=== PATIENT | female | born 1960 | race Caucasian/White ===

== ENCOUNTER → 2017-01-21 | Outpatient (CLI) | payer OTHER ==
--- NOTE | 2017-01-22 11:35 | MM ---
Reason for exam: screening (asymptomatic). Last mammogram was performed 1 year and 7 months ago. History: Patient is postmenopausal and history of other cancer. Family history of breast cancer in mother at age 50, breast cancer in paternal grandmother at age 60, breast cancer in maternal grandfather, and premenopausal breast cancer in sister at age 40. Physical Findings: A clinical breast exam by your physician is recommended on an annual basis and results should be correlated with mammographic findings. MG Screening Mammo w CAD Bilateral CC and MLO view(s) were taken. CV view(s) were taken of the right breast. Prior study comparison: June 13, 2015, bilateral MG screening mammo w CAD. February 15, 2014, bilateral MG screening mammo w CAD. There are scattered fibroglandular densities. Finding: There are typically benign punctate calcifications. There is no discrete abnormality. No significant changes in finding since June 13, 2015 and February 15, 2014. ASSESSMENT: Benign, BI-RAD 2 RECOMMENDATION: Routine screening mammogram of both breasts in 1 year.
== END | disposition home or self-care (01) ==
LOC: RADMAMWWP 14:34
PROVIDERS: ATTEND Family Medicine
DX: Z12.31 Encounter for screening mammogram for malignant neoplasm of breast (principal)

== ENCOUNTER 2017-04-13 22:58 | Inpatient (IN) | payer OTHER ==
[2017-04-13] MEDS ORDERED: RX INFO: IV CONTRAST WAS GIVEN 1 EACH MISC MISCELLANE PRN (23:12)
[2017-04-13] MEDS ORDERED: SODIUM CHLORIDE 0.9% 1,000 ML IV STA ×2 (23:12)
--- NOTE | 2017-04-13 23:14 | ED ---
General Adult HPI - General Chief complaint: Neuro Symptoms/Deficit Stated complaint: left side weakness/keeps falling Time Seen by Provider: 04/13/17 23:12 Source: patient, family, RN notes reviewed, old records reviewed Mode of arrival: wheelchair Limitations: no limitations - History of Present Illness Initial comments: This is a 56-year-old female here for evaluation of neurological complaints. Patient a trip and fall yesterday. Backwards in the back of her complaining of headache. Patient does suffer from multiple medical comorbidities including her blood pressure cholesterol diabetes. No prior history of CVA. Patient has extreme left-sided hemiparalysis. Complaining of facial droop and headache. Patient is not on blood thinners currently. Patient's symptoms have been greater than 24 hours prior to arrival - Related Data Home Medications Medication Instructions Recorded Confirmed Aspirin EC [Ecotrin Low Dose] 81 mg PO DAILY 05/17/14 04/14/17 Desvenlafaxine Succinate [Pristiq 50 mg PO DAILY 05/17/14 04/14/17 ER] Lisinopril [Zestril] 20 mg PO DAILY 05/17/14 04/14/17 Meloxicam 15 mg PO DAILY PRN 05/17/14 04/14/17 Multivitamins, Thera [Multivitamin 1 tab PO DAILY 05/17/14 04/14/17 (formulary)] Dapagliflozin Propanediol [Farxiga] 5 mg PO DAILY 04/13/17 04/14/17 Furosemide [Lasix] 20 mg PO DAILY PRN 04/13/17 04/14/17 Insulin Aspart [NovoLOG] 10 unit SQ TID-W/MEALS 04/13/17 04/14/17 Insulin Glargine [Lantus] 100 unit SQ HS 04/13/17 04/14/17 Simvastatin [Zocor] 20 mg PO HS 04/13/17 04/14/17 lamoTRIgine [LaMICtal] 50 mg PO HS 04/13/17 04/14/17 metFORMIN HCL [Glucophage] 500 mg PO BID 04/13/17 04/14/17 traMADol HCl [Ultram] 50 mg PO Q6H PRN 04/13/17 04/14/17 Allergies Allergy/AdvReac Type Severity Reaction Status Date / Time No Known Allergies Allergy Verified 04/14/17 01:12 Review of Systems ROS Statement: Those systems with pertinent positive or pertinent negative responses have been documented in the HPI. ROS Other: All systems not noted in ROS Statement are negative. Past Medical History Past Medical History: Cancer, Chest Pain / Angina, Diabetes Mellitus (2 with diabetic retinopathy), Hypertension, Osteoarthritis (OA), Pneumonia, Renal Disease (Episode of acute kidney failure in the past not requiring dialysis.) Additional Past Medical History / Comment(s): uterine cancer stage II status post total hysterectomy with bilateral salpingo-oophorectomy. Treated at [facility]. No chemotherapy or radiation therapy. IBS, diverticulitis, BRONCHNITIS, history of abscess to the left lower extremity with MRSA in 2012. CELLULITIS RT LOWER LEG/FOOT. History of Any Multi-Drug Resistant Organisms: MRSA Date of last positivie culture/infection: 2011 MDRO Source:: left leg Past Surgical History: Cholecystectomy, Hysterectomy, Tonsillectomy Past Anesthesia/Blood Transfusion Reactions: No Reported Reaction Past Psychological History: Anxiety, Depression Smoking Status: Former smoker Past Alcohol Use History: None Reported Past Drug Use History: Marijuana - Past Family History Father Family Medical History: Congestive Heart Failure (CHF), Diabetes Mellitus, Dialysis, Hyperlipidemia, Hypertension, Renal Disease Additional Family Medical History / Comment(s): AT AGE 64- Mother Family Medical History: CVA/TIA, Diabetes Mellitus, Hyperlipidemia, Hypertension , Myocardial Infarction ([place]) Additional Family Medical History / Comment(s): MOM AT AGE 74. General Exam - General Exam Comments Initial Comments: NIH 6 for left-sided deficit with left-sided facial droop Limitations: no limitations General appearance: alert, in no apparent distress Head exam: Present: atraumatic, normocephalic, normal inspection Eye exam: Present: normal appearance, PERRL, EOMI. Absent: scleral icterus, conjunctival injection, periorbital swelling ENT exam: Present: normal exam, mucous membranes moist Neck exam: Present: normal inspection. Absent: tenderness, meningismus, lymphadenopathy Respiratory exam: Present: normal lung sounds bilaterally. Absent: respiratory distress, wheezes, rales, rhonchi, stridor Cardiovascular Exam: Present: regular rate, normal rhythm, normal heart sounds. Absent: systolic murmur, diastolic murmur, rubs, gallop, clicks GI/Abdominal exam: Present: soft, normal bowel sounds. Absent: distended, tenderness, guarding, rebound, rigid Extremities exam: Present: normal inspection, full ROM, normal capillary refill. Absent: tenderness, pedal edema, joint swelling, calf tenderness Back exam: Present: normal inspection Neurological exam: Present: alert, oriented X3, CN II-XII intact Psychiatric exam: Present: normal affect, normal mood Skin exam: Present: warm, dry, intact, normal color. Absent: rash Course Vital Signs 04/13/17 04/13/17 04/14/17 23:00 23:15 00:20 Temperature 98.3 F Pulse Rate 80 82 72 Respiratory 18 18 18 Rate Blood Pressure 140/84 159/67 151/70 O2 Sat by Pulse 98 94 L 99 Oximetry 04/14/17 00:42 Temperature Pulse Rate 77 Respiratory 18 Rate Blood Pressure 145/68 O2 Sat by Pulse 97 Oximetry EKG Findings - EKG Comments: EKG Findings:: EKG shows normal sinus rhythm rate of 76, SC 182, QRS 70, QTC 429 Medical Decision Making - Medical Decision Making 56 he had with positive CVA, left-sided weakness and deficit. And I today with no improvement, patient out of window for TPA, will admit for neurology evaluation and consultation - Lab Data Result diagrams: 04/13/17 23:15 04/13/17 23:15 Lab Results 04/13/17 04/13/17 04/13/17 Range/Units 23:14 23:15 23:15 WBC 10.6 (3.8-10.6) k/uL RBC 5.13 (3.80-5.40) m/uL Hgb 16.3 H (11.4-16.0) gm/dL Hct 46.9 H (34.0-46.0) % MCV 91.4 (80.0-100.0) fL MCH 31.8 (25.0-35.0) pg MCHC 34.8 (31.0-37.0) g/dL RDW 14.0 (11.5-15.5) % Plt Count 310 (150-450) k/uL Neutrophils % 80 % Lymphocytes % 13 % Monocytes % 5 % Eosinophils % 1 % Basophils % 0 % Neutrophils # 8.5 H (1.3-7.7) k/uL Lymphocytes # 1.4 (1.0-4.8) k/uL Monocytes # 0.5 (0-1.0) k/uL Eosinophils # 0.1 (0-0.7) k/uL Basophils # 0.0 (0-0.2) k/uL PT (9.0-12.0) sec INR (<1.2) APTT (22.0-30.0) sec Sodium (137-145) mmol/L Potassium (3.5-5.1) mmol/L Chloride (98-107) mmol/L Carbon Dioxide (22-30) mmol/L Anion Gap mmol/L BUN (7-17) mg/dL Creatinine (0.52-1.04) mg/dL Est GFR (MDRD) Af Amer (>60 ml/min/1.73 sqM) Est GFR (MDRD) Non-Af (>60 ml/min/1.73 sqM) Glucose (74-99) mg/dL POC Glucose (mg/dL) 238 H (75-99) mg/dL POC Glu Analyst Programmer ID [place] Calcium (8.4-10.2) mg/dL Total Bilirubin (0.2-1.3) mg/dL AST (14-36) U/L ALT (9-52) U/L Alkaline Phosphatase (38-126) U/L Total Creatine Kinase 449 H (30-135) U/L CK-MB (CK-2) 5.2 H* (0.0-2.4) ng/mL CK-MB (CK-2) Rel Index 1.2 Troponin I <0.012 (0.000-0.034) ng/mL Total Protein (6.3-8.2) g/dL Albumin (3.5-5.0) g/dL Triglycerides (<150) mg/dL Cholesterol (<200) mg/dL LDL Cholesterol, Calc (0-99) mg/dL HDL Cholesterol (40-60) mg/dL 04/13/17 04/13/17 04/13/17 Range/Units 23:15 23:15 23:15 WBC (3.8-10.6) k/uL RBC (3.80-5.40) m/uL Hgb (11.4-16.0) gm/dL Hct (34.0-46.0) % MCV (80.0-100.0) fL MCH (25.0-35.0) pg MCHC (31.0-37.0) g/dL RDW (11.5-15.5) % Plt Count (150-450) k/uL Neutrophils % % Lymphocytes % % Monocytes % % Eosinophils % % Basophils % % Neutrophils # (1.3-7.7) k/uL Lymphocytes # (1.0-4.8) k/uL Monocytes # (0-1.0) k/uL Eosinophils # (0-0.7) k/uL Basophils # (0-0.2) k/uL PT 10.9 (9.0-12.0) sec INR 1.1 (<1.2) APTT 21.4 L (22.0-30.0) sec Sodium 141 (137-145) mmol/L Potassium 4.4 (3.5-5.1) mmol/L Chloride 106 (98-107) mmol/L Carbon Dioxide 21 L (22-30) mmol/L Anion Gap 14 mmol/L BUN 16 (7-17) mg/dL Creatinine 0.70 (0.52-1.04) mg/dL Est GFR (MDRD) Af Amer >60 (>60 ml/min/1.73 sqM) Est GFR (MDRD) Non-Af >60 (>60 ml/min/1.73 sqM) Glucose 243 H (74-99) mg/dL POC Glucose (mg/dL) (75-99) mg/dL POC Glu Analyst Programmer ID Calcium 9.7 (8.4-10.2) mg/dL Total Bilirubin 1.0 (0.2-1.3) mg/dL AST 50 H (14-36) U/L ALT 68 H (9-52) U/L Alkaline Phosphatase 70 (38-126) U/L Total Creatine Kinase (30-135) U/L CK-MB (CK-2) (0.0-2.4) ng/mL CK-MB (CK-2) Rel Index Troponin I (0.000-0.034) ng/mL Total Protein 7.3 (6.3-8.2) g/dL Albumin 4.4 (3.5-5.0) g/dL Triglycerides 203 H (<150) mg/dL Cholesterol 165 (<200) mg/dL LDL Cholesterol, Calc 91 (0-99) mg/dL HDL Cholesterol 33 L (40-60) mg/dL - Radiology Data Radiology results: report reviewed (CT brain and CT angiogram had shows right- sided MCA infarct), image reviewed Critical Care Time Critical Care Time: Yes Total Critical Care Time: 31 Disposition Clinical Impression: Cerebrovascular accident, Acute right arterial ischemic stroke, MCA (middle cerebral artery) Disposition: ADMITTED IP TO THIS HOSP Condition: Serious
[2017-04-13 23:21] LABS: Basophils % (A) 0 %; CH 32.4; CHCM 35.6; Eosinophils # (A) 0.1 k/uL (0-0.7); Eosinophils % (A) 1 %; HCT 46.9 % (34.0-46.0); HDW 2.72; HGB 16.3 gm/dL (11.4-16.0); Luc % (Auto) 1; Lymphocytes # (A) 1.4 k/uL (1.0-4.8); Lymphocytes % (A) 13 %; MCH 31.8 pg (25.0-35.0); MCHC 34.8 g/dL (31.0-37.0); MCV 91.4 fL (80.0-100.0); Monocytes # (A) 0.5 k/uL (0-1.0); Monocytes % (A) 5 %; Neutrophils # (A) 8.5 k/uL (1.3-7.7); Neutrophils % (A) 80 %; RBC 5.13 m/uL (3.80-5.40); WBC 10.6 k/uL (3.8-10.6); WBC (Perox) 10.47
[2017-04-13 23:25] LABS: Glucose,Whole Blood 238 mg/dL (75-99)
[2017-04-13 23:31] LABS: ALT 68 U/L (9-52); AST 50 U/L (14-36); Alkaline Phosphatase 70 U/L (38-126); Anion Gap 14 mmol/L; Blood Urea Nitrogen 16 mg/dL (7-17); Calcium 9.7 mg/dL (8.4-10.2); Carbon Dioxide 21 mmol/L (22-30); Chloride 106 mmol/L (98-107); Glucose 243 mg/dL (74-99); INR 1.1 (<1.2); Non-African American GFR(MDRD) >60 (>60 ml/min/1.73 sqM); Potassium 4.4 mmol/L (3.5-5.1); Prothrombin Time 10.9 sec (9.0-12.0); Sodium 141 mmol/L (137-145); Total Protein 7.3 g/dL (6.3-8.2)
[2017-04-13 23:45] LABS: Partial Thromboplastin Time 21.4 sec (22.0-30.0)
[2017-04-13 23:46] LABS: Creatine Kinase 449 U/L (30-135)
--- NOTE | 2017-04-13 23:54 | CT ---
INDICATION: Neuro deficits, stroke code TECHNIQUE: CT acquisition is performed through the brain. Sagittal and coronal reformatted images provided. No IV contrast is administered. DOSE INFORMATION: CTDIvol 57.40 mGy; DLP 1113.30 mGy-cm. One or more of the following dose reduction techniques were used: automated exposure control, adjustment of the mA and/or kV according to patient size, use of iterative reconstruction technique. COMPARISON: None. FINDINGS: There is a zone of parenchymal hypoattenuation and loss of gonsalez-white matter differentiation in the right MCA territory measuring 3. 5 x 5.8 x 3.1 cm and involving the insula and frontal and temporal operculum. There is no evidence of hemorrhagic transformation. There is no acute intracranial hemorrhage or midline shift. Ventricles are normal in size and configuration and the basal cisterns are patent. There is no skull fracture. Visualized paranasal sinuses and mastoid air cells are clear. IMPRESSION: 1. Acute right MCA territory infarct involving the insula and frontal and temporal operculum, approximate one third of the right MCA territory. No evidence of acute intracranial hemorrhage. Critical Value Communications 04/13/17 23:55 Call Doctor Regarding Stroke, called Dr. Rosas on 04/13 23:54 (-04:00)
[2017-04-13] MEDS ORDERED: ASPIRIN 325 MG TAB PO STA (23:55)
[2017-04-13 23:59] LABS: Troponin I <0.012 ng/mL (0.000-0.034)
--- NOTE | 2017-04-14 00:10 | CT ---
CTA HEAD CTA NECK INDICATION: Stroke TECHNIQUE: CTA is performed through the head and neck per institutional protocol following the intravenous administration of 65 mL Omnipaque 350. Multiplanar reformatted images including coronal and sagittal MIPS reconstructed images are provided. DOSE INFORMATION: CTDIvol 68.1 mGy; DLP 781.40-cm. One or more of the following dose reduction techniques were used: automated exposure control, adjustment of the mA and/or kV according to patient size, use of iterative reconstruction technique. COMPARISON: CT head without contrast, 04/13/27. FINDINGS: Study is limited by poor contrast bolus timing with image acquisition performed to early. CTA head: There is cut off of the right MCA at the M1-M2 junction. Area of acute right MCA territory infarction involving the insula and frontal and temporal operculum is again demonstrated. The left MCA is patent. The bilateral intracranial internal carotid arteries and bilateral A1 segments are patent. The bilateral intracranial vertebral arteries, basilar artery, and bilateral P1 segments are patent. Multifocal areas of mild stenosis likely are related to intracranial atherosclerosis. No evidence of aneurysm or vascular malformation. CTA neck: Aortic arch demonstrates normal branch anatomy. Bilateral common carotid arteries are patent. There is atherosclerosis at the carotid bifurcations bilaterally. The proximal right ICA demonstrates moderate stenosis at its origin. The proximal left ICA demonstrates mild stenosis at its origin. The bilateral cervical vertebral arteries are patent and normal in caliber. The lung apices are clear. Soft tissue structures of the neck are unremarkable. There are no acute osseous findings. CAROTID STENOSIS REFERENCE USING NASCET CRITERIA: % ICA stenosis = (1 - narrowest ICA diameter/diameter of distal cervical ICA) x 100. Mild - <50% stenosis. Moderate - 50-69% stenosis. Severe - 70-94% stenosis. Near occlusion - 95-99% stenosis. Occluded - 100% stenosis. IMPRESSION: 1. Head: Cut off of the right MCA at the M1-M2 junction with nonhemorrhagic acute infarct involving the insula and frontal and temporal operculum. 2. Neck: Atherosclerosis at the carotid bifurcations bilaterally causing moderate narrowing of the proximal right ICA and mild narrowing of the proximal left ICA.
[2017-04-14 00:22] LABS: Creatine Kinase MB 5.2 ng/mL (0.0-2.4)
--- NOTE | 2017-04-14 00:24 | XR ---
INDICATION: Altered mental status COMPARISON: None. FINDINGS: Frontal and lateral views of the chest are obtained. The cardiomediastinal silhouette is within normal limits. Lungs are clear. No pleural effusion or pneumothorax. No acute osseous findings. IMPRESSION: No radiographic evidence of acute cardiopulmonary disease.
[2017-04-14] MEDS: SODIUM CHLORIDE 0.9% 1,000 ML IV SCH ×3 (01:22→16:18)
[2017-04-14] MEDS: traMADol 50 MG TAB PO PRN ×2 (03:55→16:18)
[2017-04-14 04:57] LABS: Cholesterol 165 mg/dL (<200); HDL Cholesterol 33 mg/dL (40-60); Triglycerides 203 mg/dL (<150)
[2017-04-14] MEDS ORDERED: ASPIRIN 325 MG TAB PO SCH (09:00)
--- NOTE | 2017-04-14 09:04 | US ---
EXAMINATION TYPE: US carotid duplex BILAT DATE OF EXAM: 04/14/2017 COMPARISON: NONE CLINICAL HISTORY: 56-year-old female Stenosis. Frequent falls, headache, left sided weakness. TECHNIQUE: Carotid duplex ultrasound examination. Indirect Doppler criteria was utilized. FINDINGS: There is moderate atherosclerotic change of the right bifurcation and mild on the left. EXAM MEASUREMENTS: RIGHT: Peak Systolic Velocity (PSV) cm/sec ----- Right CCA: 77.9 ----- Right ICA: 74.6 ----- Right ECA: 132.3 ICA/CCA ratio: 1.0 RIGHT: End Diastole cm/sec ----- Right CCA: 9.8 ----- Right ICA: 17.5 ----- Right ECA: 6.3 LEFT: Peak Systolic Velocity (PSV) cm/sec ----- Left CCA: 72.7 ----- Left ICA: 98.9 ----- Left ECA: 100.9 ICA/CCA ratio: 1.4 LEFT: End Diastole cm/sec ----- Left CCA: 11.9 ----- Left ICA: 16.5 ----- Left ECA: 10.2 VERTEBRALS (direction of flow): Right Vertebral: Antegrade Left Vertebral: Antegrade IMPRESSION: No hemodynamically significant stenosis appreciated in either internal carotid artery. Criteria for Assigning % of Stenosis / Diameter reduction (Estimation based on the indirect measurements of the internal carotid artery velocities (ICA PSV). 1. Normal (no stenosis)=ICA PSV < 125 cm/s: ratio < 2.0: ICA EDV<40 cm/s. 2. Less than 50% stenosis=ICA PSV < 125 cm/s: ratio < 2.0: ICA EDV<40 cm/s. 3. 50 to 69% stenosis=ICA PSV of 125 to 230 cm/s: ration 2.0 ? 4.0: ICA EDV 40-100 cm/s. 4. Greater than 70% stenosis to near occlusion= ICA PSV > 230 cm/s: ratio > 4.0: ICA EDV > 100 cm/s. 5. Near occlusion= ICA PSV velocities may be low or undetectable: variable ratio and ICA EDV. 6. Total occlusion=unable to detect flow.
--- NOTE | 2017-04-14 10:30 | ECHOF ---
Referral Reason:Thrombus MEASUREMENTS -------- HEIGHT: 167.6 cm WEIGHT: 99.3 kg BP: 142/88 RVIDd: 3.0 cm (< 3.3) IVSd: 1.1 cm (0.6 - 1.1) LVIDd: 3.4 cm (3.9 - 5.3) LVPWd: 1.1 cm (0.6 - 1.1) IVSs: 1.4 cm LVIDs: 2.4 cm LVPWs: 1.7 cm LA Diam: 3.4 cm (2.7 - 3.8) LAESV Index (A-L): 29.36 ml/m Ao Diam: 3.4 cm (2.0 - 3.7) AV Cusp: 2.2 cm (1.5 - 2.6) MV EXCURSION: 14.642 mm (> 18.000) MV EF SLOPE: 96 mm/s (70 - 150) MV E Hima: 1.26 m/s MV DecT: 241 ms MV A Hima: 1.04 m/s MV E/A Ratio: 1.21 RAP: 5.00 mmHg RVSP: 26.20 mmHg FINDINGS -------- Sinus rhythm. This was a technically good study. The left ventricular size is normal. There is borderline concentric left ventricular hypertrophy. Overall left ventricular systolic function is normal with, an EF between 60 - 65 %. The right ventricle is normal in size and function. LA is midly dilated 29-33ml/m2. The right atrium is normal in size. The aortic valve is trileaflet and appears structurally normal. The mitral valve is normal. Trace tricuspid regurgitation present. Right ventricular systolic pressure is normal at < 35 mmHg. There is no pulmonic regurgitation present. The aortic root size is normal. IVC Not well visulized. There is no pericardial effusion. CONCLUSIONS -------- 1. Sinus rhythm. 2. The mitral valve is normal. 3. Trace tricuspid regurgitation present. 4. Right ventricular systolic pressure is normal at < 35 mmHg. 5. There is no pulmonic regurgitation present. 6. The aortic root size is normal. 7. IVC Not well visulized. 8. There is no pericardial effusion. 9. This was a technically good study. 10. The left ventricular size is normal. 11. There is borderline concentric left ventricular hypertrophy. 12. Overall left ventricular systolic function is normal with, an EF between 60 - 65 %. 13. The right ventricle is normal in size and function. 14. LA is midly dilated 29-33ml/m2. 15. The right atrium is normal in size. 16. The aortic valve is trileaflet and appears structurally normal. WHEAT WASHER: Sushma Spencer RDCS
[2017-04-14 12:38] LABS: Glucose,Whole Blood 232 mg/dL (75-99)
[2017-04-14] MEDS ORDERED: FUROSEMIDE 20 MG TAB PO PRN (13:12)
[2017-04-14] MEDS ORDERED: MELOXICAM 7.5 MG TAB PO PRN (13:12)
[2017-04-14] MEDS: INSULIN LISPRO (humaLOG) 300 UNIT/3 ML VIAL SQ SCH ×2 (13:35→17:50)
[2017-04-14 18:10] LABS: Glucose,Whole Blood 179 mg/dL (75-99)
[2017-04-14] MEDS ORDERED: ATORVASTATIN 80 MG TAB PO SCH (21:00)
[2017-04-14 21:27] LABS: Glucose,Whole Blood 147 mg/dL (75-99)
[2017-04-14] MEDS: metFORMIN 500 MG TAB PO SCH (21:28)
[2017-04-14] MEDS: lamoTRIgine 25 MG TAB PO SCH (21:42)
[2017-04-14] MEDS: INSULIN GLARGINE 100 UNIT/ML 10 ML VIAL SQ SCH (21:42)
[2017-04-14] MEDS: ATORVASTATIN 10 MG TAB PO SCH (21:42)
--- NOTE | 2017-04-14 22:29 | P.CNNES ---
History of Present Illness Consult date: 04/14/17 Reason for Consult: Patient being evaluated for acute right MCA stroke. History of Present Illness: This patient is a 56-year-old right-handed white female who was at home on Thursday of this past week and had 3 episodes of falling. She states that she was feeling very weak and apparently fell due to weakness in her legs. She had sustained 3 falls close to the bathroom. She was able to get some help and was able to get back into bed as this occurred late at night. The next day she was having again difficulty with falls. Her son returned home and found her very weak and unable to get out of bed. EMS was called and she was transported to the emergency room at [facility] for further evaluation. She was seen in the ER by Dr. Rosas. She underwent an NIH stroke scale which was noted to be 6.0. She was sent for a computed tomography scan of the brain which revealed evidence of an acute right MCA infarct involving the frontal temporal lobe. There was no evidence of acute intracranial hemorrhage. She was also sent for a CTA angiogram of the head and neck. This CTA result revealed a cutoff of the right MCA at the M1 and M2 junction with nonhemorrhagic acute infarction. The patient was admitted to hospital for a complete stroke evaluation. She underwent a carotid Doppler study today which revealed no hemodynamically significant stenosis in either internal carotid artery. The patient was noted in the ER as having severe left-sided hemiparesthesias. She had a facial droop and some slurring of her words. Since admission she has noted only slight improvement in the left hand strength. She denies any headache at this time. She has no visual changes. She does have history of diabetes mellitus for over 12 years. Her most recent hemoglobin A1c was 6.5. The patient had been taking one aspirin daily 81 mg for the last several years at home. She is also on Crestor for treatment of hyperlipidemia. The patient is now admitted and neurology has been consulted for further evaluation and recommendations. Review of Systems Constitutional: Denies chills, Denies fever Eyes: denies blurred vision, denies pain Ears, nose, mouth and throat: Denies headache, Denies sore throat Cardiovascular: Denies chest pain, Denies shortness of breath Respiratory: Denies cough Gastrointestinal: Denies abdominal pain, Denies diarrhea, Denies nausea, Denies vomiting Genitourinary: Denies dysuria, Denies hematuria Musculoskeletal: Denies myalgias Integumentary: Denies pruritus, Denies rash Neurological: Reports aphasia, Reports change in speech, Reports confusion, Reports lack of coordination, Reports motor disturbance, Reports paresthesias, Denies numbness, Denies weakness Psychiatric: Denies anxiety, Denies depression Endocrine: Denies fatigue, Denies weight change Past Medical History Past Medical History: Cancer, Chest Pain / Angina, Diabetes Mellitus, Hypertension, Osteoarthritis (OA), Pneumonia, Renal Disease Additional Past Medical History / Comment(s): uterine cancer stage II status post total hysterectomy with bilateral salpingo-oophorectomy. Treated at [facility]. No chemotherapy or radiation therapy. IBS, diverticulitis, BRONCHNITIS, history of abscess to the left lower extremity with MRSA in 2012. CELLULITIS RT LOWER LEG/FOOT. History of Any Multi-Drug Resistant Organisms: MRSA Date of last positivie culture/infection: 2011 MDRO Source:: left leg Past Surgical History: Cholecystectomy, Hysterectomy, Tonsillectomy Past Anesthesia/Blood Transfusion Reactions: No Reported Reaction Past Psychological History: Anxiety Smoking Status: Former smoker Past Alcohol Use History: None Reported Additional Past Alcohol Use History / Comment(s): STARTED SMOKING AT AGE 10, SMOKED 2PPD, QUIT 1996. OCC SMOKES MARIJUANA. NO ETOH. 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 She is currently not employed. She lives at home with her and son. They have 1 cat and 1 dog in the home. No recent travel. Past Drug Use History: Marijuana - Past Family History Father Family Medical History: Congestive Heart Failure (CHF), Diabetes Mellitus, Dialysis, Hyperlipidemia, Hypertension, Renal Disease Additional Family Medical History / Comment(s): AT AGE 64- Mother Family Medical History: CVA/TIA, Diabetes Mellitus, Hyperlipidemia, Hypertension , Myocardial Infarction ([place]) Additional Family Medical History / Comment(s): MOM AT AGE 74. Medications and Allergies Home Medications Medication Instructions Recorded Confirmed Type Aspirin EC [Ecotrin Low Dose] 81 mg PO DAILY 05/17/14 04/14/17 History Desvenlafaxine Succinate [Pristiq 50 mg PO DAILY 05/17/14 04/14/17 History ER] Lisinopril [Zestril] 20 mg PO DAILY 05/17/14 04/14/17 History Meloxicam 15 mg PO DAILY PRN 05/17/14 04/14/17 History Multivitamins, Thera [Multivitamin 1 tab PO DAILY 05/17/14 04/14/17 History (formulary)] Dapagliflozin Propanediol [Farxiga] 5 mg PO DAILY 04/13/17 04/14/17 History Furosemide [Lasix] 20 mg PO DAILY PRN 04/13/17 04/14/17 History Insulin Aspart [NovoLOG] 10 unit SQ TID-W/MEALS 04/13/17 04/14/17 History Insulin Glargine [Lantus] 100 unit SQ HS 04/13/17 04/14/17 History Simvastatin [Zocor] 20 mg PO HS 04/13/17 04/14/17 History lamoTRIgine [LaMICtal] 50 mg PO HS 04/13/17 04/14/17 History metFORMIN HCL [Glucophage] 500 mg PO BID 04/13/17 04/14/17 History traMADol HCl [Ultram] 50 mg PO Q6H PRN 04/13/17 04/14/17 History Allergies Allergy/AdvReac Type Severity Reaction Status Date / Time No Known Allergies Allergy Verified 04/14/17 01:12 Physical Examination - Vital Signs Vital Signs: Vital Signs Temp Pulse Pulse Resp BP BP Pulse Ox 04/14/17 16:00 98.2 F 64 18 148/67 94 L 04/14/17 12:00 98.1 F 73 18 155/66 94 L 04/14/17 08:00 96.3 F L 65 18 167/72 94 L 04/14/17 04:00 98.8 F 85 16 142/88 96 04/14/17 00:42 77 18 145/68 97 04/14/17 00:20 72 18 151/70 99 04/13/17 23:15 82 18 159/67 94 L 04/13/17 23:00 98.3 F 80 18 140/84 98 Intake and Output 04/14/17 04/14/17 04/14/17 06:59 14:59 22:59 Intake Total 150 574 237 Balance 150 574 237 Intake: IV 150 Sodium Chloride 0.9% 1, 150 000 ml @ 100 mls/hr IV . Q10H [facility] Rx#:[id number] Oral 574 237 Other: Voiding Method Toilet Toilet Toilet # Voids 1 Weight 99.7 kg - Constitutional General appearance: average body habitus, cooperative - EENT EENT: PERRL, mucous membranes moist - Respiratory Respiratory: lungs clear, normal breath sounds - Cardiovascular Cardiovascular: regular rate, normal S1, normal S2 Extremities: no peripheral edema bilaterally - Gastrointestinal Gastrointestinal: normoactive bowel sounds - Integumentary Integumentary: normal - Neurologic Cranial nerve examination: PERRL, EOMI, V1/V2/V3 grossly intact, tongue midline , intact gag reflex, intact corneal reflex, facial droop (Patient has a left upper motor neuron facial weakness.), normal palatal elevation Speech examination: intact Sensorimotor examination: intact Motor examination - right side: 4/5: biceps, triceps, wrist flexion, wrist extension, 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, hip flexors, knee extensors, dorsiflexion, toe extension (EHL) , plantarflexion Motor examination - left side: 2/5: biceps, triceps, wrist flexion, wrist extension, 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, hip flexors, knee extensors, dorsiflexion, toe extension (EHL) , plantarflexion Detailed sensory examination: intact Reflex and gait examination: intact Reflexes: 1+: ankle, bicep, knee, tricep - Musculoskeletal Musculoskeletal: no pain - Psychiatric Psychiatric: mood/affect appropriate, cooperative Results - Laboratory Findings CBC and BMP: 04/13/17 23:15 04/13/17 23:15 Abnormal Lab Findings: Abnormal Labs 04/13/17 04/13/17 04/13/17 23:14 23:15 23:15 Hgb 16.3 H Hct 46.9 H Neutrophils # 8.5 H APTT Carbon Dioxide Glucose POC Glucose (mg/dL) 238 H AST ALT Total Creatine Kinase 449 H CK-MB (CK-2) 5.2 H* Triglycerides HDL Cholesterol 04/13/17 04/13/17 04/13/17 23:15 23:15 23:15 Hgb Hct Neutrophils # APTT 21.4 L Carbon Dioxide 21 L Glucose 243 H POC Glucose (mg/dL) AST 50 H ALT 68 H Total Creatine Kinase CK-MB (CK-2) Triglycerides 203 H HDL Cholesterol 33 L 04/14/17 04/14/17 12:35 17:49 Hgb Hct Neutrophils # APTT Carbon Dioxide Glucose POC Glucose (mg/dL) 232 H 179 H AST ALT Total Creatine Kinase CK-MB (CK-2) Triglycerides HDL Cholesterol Assessment and Plan (1) Acute right arterial ischemic stroke, MCA (middle cerebral artery) Status: Acute Code(s): I63.511 - CEREB INFRC D/T UNSP OCCLS OR STENOS OF RIGHT MID CEREB ART (2) Hyperlipidemia Status: Acute Code(s): E78.5 - HYPERLIPIDEMIA, UNSPECIFIED (3) Diabetes mellitus Status: Acute Code(s): E11.9 - TYPE 2 DIABETES MELLITUS WITHOUT COMPLICATIONS (4) Hypertension Status: Acute Code(s): I10 - ESSENTIAL (PRIMARY) HYPERTENSION Plan: This patient is a 56-year-old female who was admitted to hospital with acute onset of left-sided weakness and slurred speech. She was seen in the ER yesterday by Dr. Rosas. Her NIH stroke scale was noted to be 6.0. She underwent a CT scan of the brain as well as a CTA angiogram. Results are as noted above. CAT scan of the brain reveals a acute right MCA stroke. CTA angiogram revealed cutoff of the right MCA at the M1 and M2 junction. The patient was admitted to hospital for a complete stroke evaluation. Her neurological examination reveals acute left-sided hemiparesis with left facial droop and mild expressive aphasia. This patient has suffered an acute right MCA stroke. We have recommended a complete stroke evaluation for the patient. We have recommended an MRI of the brain for further evaluation. She is to be maintained on aspirin daily for secondary stroke prevention pending her MRI results. Her overall prognosis at this time remains very guarded. We will continue close neurological follow-up of this patient during this admission. Time with Patient: Greater than 30
[2017-04-15] MEDS: SODIUM CHLORIDE 0.9% 1,000 ML IV SCH ×2 (06:04→16:54)
[2017-04-15 06:07] LABS: Glucose,Whole Blood 142 mg/dL (75-99)
[2017-04-15] MEDS: INSULIN LISPRO (humaLOG) 300 UNIT/3 ML VIAL SQ SCH ×3 (07:32→18:21)
[2017-04-15 07:33] LABS: Cholesterol 139 mg/dL (<200); HDL Cholesterol 27 mg/dL (40-60); Triglycerides 139 mg/dL (<150)
[2017-04-15] MEDS: ASPIRIN 81 MG CHEW PO SCH (08:19)
[2017-04-15] MEDS: LISINOPRIL 20 MG TAB PO SCH (08:19)
[2017-04-15] MEDS: MULTIVITAMINS, THERA 1 EACH TAB PO SCH (08:19)
[2017-04-15] MEDS: metFORMIN 500 MG TAB PO SCH ×2 (08:19→22:22)
[2017-04-15] MEDS: DESVENLAFAXINE SUCCINATE 50 MG TAB.ER.24H PO SCH (08:19)
[2017-04-15] MEDS: HEPARIN SODIUM,PORCINE 5,000 UNIT/ML 1 ML VIAL SQ SCH ×2 (08:19→20:39)
[2017-04-15] MEDS ORDERED: NON-FORMULARY DRUG (Dapagliflozin Propanediol [Farxiga] 5 MG) PO SCH (09:00)
[2017-04-15 10:23] LABS: Hemoglobin A1C 10.7 % (4.2-6.1)
--- NOTE | 2017-04-15 10:54 | MR ---
EXAMINATION TYPE: MR angio head wo con DATE OF EXAM: 04/15/2017 COMPARISON: CTA of the neck and [place] of [place] from 2 days earlier. HISTORY: CVA. Admitted for left-sided weakness 2 days earlier. TECHNIQUE: Time of flight images focusing on the [place] of [place] were performed without contrast.. 2-D and 3-D postprocessing imaging is performed. FINDINGS: There is codominant vertebrobasilar system. There is no significant stenosis or aneurysmal change in the posterior circulation. There are hypoplastic posterior communicating arteries bilateral ly redemonstrated. Images of the anterior circulation show patent anterior communicating artery. There is tortuous cours e to small caliber branching vessel from right A1 segment mimicking tiny aneurysm but can be followed to vessel extending inferiorly. No aneurysmal change is evident. No significant stenosis is seen. Ri ght middle cerebral artery is well visualized to the trifurcation. IMPRESSION: No evidence of significant stenosis or aneurysmal change at level of [place]. Po or contrast bolus is noted on comparison CT.
--- NOTE | 2017-04-15 12:16 | MR ---
EXAMINATION TYPE: MR brain wo con DATE OF EXAM: 04/15/2017 10:43 AM COMPARISON: CT brain 04/13/2017 HISTORY: Acute right MCA stroke FINDINGS: The ventricles, basal cisterns and sulci overlying the cerebral convexities are minimally enlarged. There is evidence of minimal periventricular white matter ischemic demyelination. Moderate sized area of acute ischemia involving the right middle cerebral artery territory with addit ional focal areas of increased signal on diffusion-weighted imaging within the high right frontal par ietal regions. There is no evidence for midline shift or mass effect. Acute intracranial hemorrhage or extra-axial collection is not evident. The paranasal sinuses and mastoid air cells are well-aerated. IMPRESSION: Acute infarct involving the right middle cerebral artery territory with additional globular foci note d within the high right frontal parietal lobe. No evidence for hemorrhage or midline shift.
[2017-04-15 12:23] LABS: Glucose,Whole Blood 135 mg/dL (75-99)
[2017-04-15] MEDS: traMADol 50 MG TAB PO PRN (12:55)
[2017-04-15 14:21] VITALS: BMI 35.6
--- NOTE | 2017-04-15 15:15 | HP ---
DATE OF ADMISSION: 04/14/17 CHIEF COMPLAINT: Weakness of the left side of the body and falls. HISTORY OF PRESENT ILLNESS: This 56-year-old woman with a past medical history of multiple medical problems including diabetes, hypertension, DJD, history of pneumonia, uterine cancer, Stage II, status post total hysterectomy, history of anxiety, history of nicotine dependence being followed by Dr. Rodriguez in the outpatient setting, was noted to have some weakness in the left side of the upper limbs last night. The patient also had some fall and the patient had difficulty walking. This morning the patient had increasing weakness of the left side and the patient came to [facility] and was admitted to the hospital for further evaluation and treatment. CT scan of the brain was done which showed significant lesions in the right MCA territory involving the frontal and temporal upper . The patient also had multiple other evaluations including angiography. CT angiography showed cut off of the right MCA at the junction. Moderate narrowing of the right proximal ICA was also noted and mild narrowing of the left ICA was also noted. Neurology evaluation in progress. Carotid Doppler also showed no hemodynamically significant stenosis. 2D echo showed ejection fraction 60 to 65%. The patient admitted for further evaluation and treatment. There is no history of fever, rigors or chills. No history of headache. There is no history of loss of consciousness or seizures at this time. The patient is slightly dysarthric. Past medical history of diabetes mellitus, hypertension, uterine cancer, history of renal disease, history of pneumonia. Medications prior to admission are: Home medications are reviewed and include: 1. Ultram 50 mg q6h prn. 2. Glucophage 500 mg po b.i.d. 3. Lamictal 50 mg q.h.s. 4. Zocor 20 mg q.h.s. 5. Multivitamin one po daily. 6. Meloxicam 15 mg daily prn. 7. Zestril 20 mg po daily. 8. Lantus 100 units subcu q.h.s. 9. NovoLog 10 units t.i.d. with meals. 10. Lasix 20 mg daily prn. 11. Pristiq ER 50 mg po daily. 13. Ecotrin 81 mg po daily. ALLERGIES: None. FAMILY HISTORY: History of CHF, diabetes and stroke in the family in the mother. SOCIAL HISTORY: Previous history of smoking. Occasional THC. REVIEW OF SYSTEMS: HEENT: No diminished vision. No diminished hearing. Cardiovascular system: no angina or palpitations. Respiratory: No cough, hemoptysis. GI: No nausea or vomiting. : No dysuria. Nervous system: as mentioned earlier. Allergy/Immunology: No asthma or hayfever. Musculoskeletal : As mentioned earlier. Hematology/oncology: No history of anemia. Endocrine. No history of diabetes or hypothyroidism. Constitutional: As mentioned earlier. Dermatology: Negative. Rheumatology: Negative. Psychiatry: As mentioned earlier. PHYSICAL EXAMINATION: The patient is alert and oriented times three. Pulse 64. Blood pressure 148/62. Respiratory rate 18, temperature 98.2. Pulse ox 94% on room air. HEENT: Conjunctivae normal. NECK: No JVD. Cardiovascular: S1, S2 muffled. Respiratory: Breath sounds diminished at the bases. Scattered rhonchi and no crackles. Abdomen is soft. Legs: No edema. No swelling. Nervous system: No focal deficits. LABS: WBC 10.6, hemoglobin 16.3. AST 50, ALT 68. Creatinine kinase 449. ASSESSMENT: 1. Acute left sided stroke, lesions, rule out right internal carotid artery stenosis. 2. Gait dysfunction. 3. Increased AST/ALT with mild hepatitis. 4. Increased CK. 5. History of diabetes mellitus Type 2. 6. Hypertension. 7. History of remote history of uterine cancer. 8. History of irritable bowel syndrome. 9. History of MRSA. 10. History of cholecystectomy. 11. History of anxiety. 12. Remote history of nicotine dependence. 13. Obesity, body mass index 34.5. 14. FULL CODE. RECOMMENDATIONS AND DISCUSSION: In this 56-year-old woman who presented with multiple complex medical issues, we will monitor the patient closely. Continue the current medications. Continue symptomatic treatment. Follow closely with cardiology. Neurovascular workup has been noted. I would also recommend vascular consultation. Otherwise, PT/OT evaluation. I would also recommend the possibility of ECF rehab also. Overall prognosis is guarded because of the multiple complex medical issues. Deep venous thrombosis prophylaxis also recommended. Discussed with the family, multiple members of the family at the bedside who understood and agreed with current diagnosis and therapeutic plans. NICO
--- NOTE | 2017-04-15 16:29 | CONS ---
This is a 56 year old female. She came to the emergency room with history of fall at home. She was brought in and had a stroke workup. She noticed slurred speech and left arm paralysis. The patient had a stroke workup including carotid ultrasound, CT of the brain, CT angiogram of both carotid arteries. CT of the head shows intracranial hemorrhage. Ultrasound of the carotids was found to be bilateral ( ) No critical stenosis. CT revealed cutoff of the right middle cerebral artery M1, M2 junction, with non hemorrhagic acute infarction. Medical history: History of hypertension, obesity. Surgical history: The patient had a total hysterectomy for ovarian and uterine cancer. On examination, the patient was seen in her room lying comfortably in bed. Neck is supple. Trachea is central. Chest is clear to auscultation. First and second sounds are normal. Abdomen is protuberant. Vascular exam, brachial, radial and femoral pulses present. The patient has a left arm weakness and right arm has normal strength. The patient had some slurred speech. IMPRESSION: Acute CVA involving the middle cerebral artery. PLAN: The patient needs physical therapy. Antiplatelet therapy. We will follow with you. NICO
[2017-04-15 17:04] LABS: Glucose,Whole Blood 103 mg/dL (75-99)
[2017-04-15] MEDS: ATORVASTATIN 10 MG TAB PO SCH (20:38)
[2017-04-15] MEDS: lamoTRIgine 25 MG TAB PO SCH (20:39)
[2017-04-15 21:21] LABS: Glucose,Whole Blood 116 mg/dL (75-99)
[2017-04-15] MEDS: INSULIN GLARGINE 100 UNIT/ML 10 ML VIAL SQ SCH (22:22)
--- NOTE | 2017-04-15 22:32 | P.PN ---
Subjective This patient is a 56-year-old female admitted with acute stroke symptoms. Patient presented with acute left-sided hemiparesthesias. She was sent for MRI of the brain today which reveals an acute infarct involving the right middle cerebral artery territory as well as the right frontal parietal lobe. No evidence for acute hemorrhage. MRA of the [place] came back negative for any significant stenosis or aneurysm. We reviewed the results of the MRI/ MRA today with the patient. She continues to show significant left-sided hemiparesis. We will continue her current stroke workup. Her overall prognosis at this time remains very guarded. Objective - Vital Signs Vital signs: Vital Signs Temp 97.6 F 04/15/17 16:00 Pulse 86 04/15/17 16:00 Resp 18 04/15/17 16:00 BP 172/73 04/15/17 16:00 Pulse Ox 94 L 04/15/17 16:00 Intake & Output 04/15/17 04/15/17 04/16/17 06:59 18:59 06:59 Intake Total 1200 240 Output Total 300 Balance 900 240 Weight 100.2 kg 100.2 kg Intake: IV 1200 Sodium Chloride 0.9% 1, 1200 000 ml @ 100 mls/hr IV . Q10H [facility] Rx#:[id number] Oral 240 Output: Urine 300 Other: Voiding Method Toilet - Exam Physical examination: PHYSICAL EXAMINATION: Patient is resting comfortably in bed. VITAL SIGNS: Blood pressure is [172/73]. Heart rate is [86]. Respiration is [18] . Temperature is [97.7]. HEENT: Head is atraumatic, neck is supple, there were no carotid bruits. CHEST: Lungs are clear to auscultation and percussion. CARDIAC: S1, S2 normal rate and rhythm. There is no murmur. ABDOMEN: Soft and nontender. Bowel sounds are present. EXTREMITIES: There is no pedal edema. Peripheral pulses are present. Neurological examination: Patient's neurological examination is unchanged from yesterday. She has a dense left-sided hemiparesis. - Labs CBC & Chem 7: 04/13/17 23:15 04/13/17 23:15 Labs: Abnormal Lab Results - Last 24 Hours (Table) 04/14/17 04/15/17 04/15/17 Range/Units 21:26 06:02 06:33 POC Glucose (mg/dL) 147 H 142 H (75-99) mg/dL Hemoglobin A1c (4.2-6.1) % HDL Cholesterol 27 L (40-60) mg/dL 04/15/17 04/15/17 04/15/17 Range/Units 06:33 12:20 16:46 POC Glucose (mg/dL) 135 H 103 H (75-99) mg/dL Hemoglobin A1c 10.7 H (4.2-6.1) % HDL Cholesterol (40-60) mg/dL Assessment and Plan (1) Acute right arterial ischemic stroke, MCA (middle cerebral artery) Status: Acute Code(s): I63.511 - CEREB INFRC D/T UNSP OCCLS OR STENOS OF RIGHT MID CEREB ART (2) Hyperlipidemia Status: Acute Code(s): E78.5 - HYPERLIPIDEMIA, UNSPECIFIED (3) Diabetes mellitus Status: Acute Code(s): E11.9 - TYPE 2 DIABETES MELLITUS WITHOUT COMPLICATIONS (4) Hypertension Status: Acute Code(s): I10 - ESSENTIAL (PRIMARY) HYPERTENSION Plan: This patient is a 56-year-old female who was admitted to hospital with acute onset of left-sided weakness and slurred speech. She was seen in the ER yesterday by Dr. Rosas. Her NIH stroke scale was noted to be 6.0. She underwent a CT scan of the brain as well as a CTA angiogram. Results are as noted above. CAT scan of the brain reveals a acute right MCA stroke. CTA angiogram revealed cutoff of the right MCA at the M1 and M2 junction. The patient was admitted to hospital for a complete stroke evaluation. Her neurological examination reveals acute left-sided hemiparesis with left facial droop and mild expressive aphasia. This patient has suffered an acute right MCA stroke. We have recommended a complete stroke evaluation for the patient. We have recommended an MRI of the brain for further evaluation. She is to be maintained on aspirin daily for secondary stroke prevention pending her MRI results. Her MRI and MRA results were reviewed today with the patient. MRI reveals a acute right MCA stroke. MRA came back negative for any evidence for stenosis or aneurysm. We will continue her current stroke workup. Her overall prognosis at this time remains very guarded. We will continue close neurological follow-up of this patient during this admission.
[2017-04-16] MEDS: traMADol 50 MG TAB PO PRN (01:39)
[2017-04-16] MEDS: SODIUM CHLORIDE 0.9% 1,000 ML IV SCH ×2 (05:22→09:31)
[2017-04-16 06:03] LABS: Glucose,Whole Blood 108 mg/dL (75-99)
--- NOTE | 2017-04-16 06:29 | P.CONS ---
History of Present Illness - Chief Complaint Gait disturbance and left hemiplegia - History of Present Illness I had the op to see patient for inpatient rehab consultation with regard to acute onset left hemiplegia. Patient seen by Dr. Patrick Drake for the acute right MCA infarct. This was demonstrated on head CT and follow-up MRI. Angios CT demonstrated right MCA hemorrhagic infarct and bilateral carotid atherosclerosis. Chest x-ray negative. Cardiac echo with normal sinus rhythm and 60-65% ejection fraction, otherwise within normal limits. MRA negative for stenosis. PT prescribed. OT reports moderate assistance for upper dressing and 3 person assistance for lower dressing, maximal assistance for bathing. Unable to test toileting or transfers. Speech therapy following. Previous functional history as elicited from patient: 56-year-old right-handed white female who is lives in one form with and adult son. Son works. has had multiple strokes. 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 Describes history smoking but doesn't smoke or drink currently. Independent with cooking , laundry, driving. Regular doctors Dr. García. Family history diabetes in both parents and stroke in mother. Review of Systems Review of systems: ENT: Denies sneezes or discharge. Eyes: Denies discharge or photophobia. Cardiac: Denies chest pain or palpitation. Pulmonary: Denies cough or shortness of breath. Breast: Denies discharge or lumps. Gastrointestinal: Denies nausea, emesis, constipation, diarrhea. Genitourinary: Denies discharge or frequency. Musculoskeletal: Discomfort and back and left shoulder, apparently related to recent injury. Neurologic: Left-sided weakness and numbness. Endocrine: Denies shakes or sweats. Oncology: Denies cancers. Dermatologic: Denies rash, itching, pruritus. ALLERGY/immunology: Denies sneezes, rashes. Past Medical History Past Medical History: Cancer, Chest Pain / Angina, Diabetes Mellitus (2 with diabetic retinopathy), Hypertension, Osteoarthritis (OA), Pneumonia, Renal Disease (Episode of acute kidney failure in the past not requiring dialysis.) Additional Past Medical History / Comment(s): uterine cancer stage II status post total hysterectomy with bilateral salpingo-oophorectomy. Treated at [facility]. No chemotherapy or radiation therapy. IBS, diverticulitis, BRONCHNITIS, history of abscess to the left lower extremity with MRSA in 2011. CELLULITIS RT LOWER LEG/FOOT. History of Any Multi-Drug Resistant Organisms: MRSA Year Discovered:: 2011 MDRO Source:: left leg Past Surgical History: Cholecystectomy, Hysterectomy, Tonsillectomy Past Anesthesia/Blood Transfusion Reactions: No Reported Reaction Past Psychological History: Anxiety, Depression Smoking Status: Former smoker Past Alcohol Use History: None Reported Past Drug Use History: Marijuana - Past Family History Father Family Medical History: Congestive Heart Failure (CHF), Diabetes Mellitus, Dialysis, Hyperlipidemia, Hypertension, Renal Disease Additional Family Medical History / Comment(s): AT AGE 64- Mother Family Medical History: CVA/TIA, Diabetes Mellitus, Hyperlipidemia, Hypertension , Myocardial Infarction ([place]) Additional Family Medical History / Comment(s): MOM AT AGE 74. Medications and Allergies Home Medications Medication Instructions Recorded Confirmed Type Aspirin EC [Ecotrin Low Dose] 81 mg PO DAILY 05/17/14 04/14/17 History Desvenlafaxine Succinate [Pristiq 50 mg PO DAILY 05/17/14 04/14/17 History ER] Lisinopril [Zestril] 20 mg PO DAILY 05/17/14 04/14/17 History Meloxicam 15 mg PO DAILY PRN 05/17/14 04/14/17 History Multivitamins, Thera [Multivitamin 1 tab PO DAILY 05/17/14 04/14/17 History (formulary)] Dapagliflozin Propanediol [Farxiga] 5 mg PO DAILY 04/13/17 04/14/17 History Furosemide [Lasix] 20 mg PO DAILY PRN 04/13/17 04/14/17 History Insulin Aspart [NovoLOG] 10 unit SQ TID-W/MEALS 04/13/17 04/14/17 History Insulin Glargine [Lantus] 100 unit SQ HS 04/13/17 04/14/17 History Simvastatin [Zocor] 20 mg PO HS 04/13/17 04/14/17 History lamoTRIgine [LaMICtal] 50 mg PO HS 04/13/17 04/14/17 History metFORMIN HCL [Glucophage] 500 mg PO BID 04/13/17 04/14/17 History traMADol HCl [Ultram] 50 mg PO Q6H PRN 04/13/17 04/14/17 History Allergies Allergy/AdvReac Type Severity Reaction Status Date / Time No Known Allergies Allergy Verified 04/14/17 01:12 Physical Exam Vitals: Vital Signs Temp Pulse Resp BP Pulse Ox 04/16/17 04:00 98.0 F 64 18 151/65 94 L 04/16/17 00:00 97.0 F L 57 L 18 127/77 98 04/15/17 20:00 97.6 F 57 L 18 150/71 94 L 04/15/17 16:00 97.6 F 86 18 172/73 94 L 04/15/17 12:00 97.4 F L 61 18 171/81 95 04/15/17 08:00 97.5 F L 62 16 146/65 96 Intake and Output 04/15/17 04/15/17 04/16/17 14:59 22:59 06:59 Intake Total 240 Balance 240 Intake: Oral 240 Other: Voiding Method Toilet Toilet # Voids 1 1 # Bowel Movements 0 Weight 100.2 kg Patient Weight 04/16/17 06:59 Weight 100.2 kg Skin: Good color, texture, turgor. General: Obese and comfortable appearance. Head: Normocephalic, atraumatic. Eyes: Symmetric. Pupils equal round. Ears: Symmetric. Hearing within normal limits. Mouth: Clear. Neck: Supple. Carotid without bruit. Cardiac: Regular rate and rhythm. Lungs: Clear anteriorly and posteriorly. Abdomen: Soft active nontender overweight. Extremities: Normal tone. Neurological: Mental status: Alert, cooperative, pleasant. Cranial nerves: Symmetric facial tone and trapezius. Motor: Normal strength and isolation right arm and leg. Left arm in flexion predominant synergy and left leg in extension predominant synergy. Sensation: Intact throughout right side. Depressed left side. DTRs: Symmetric and equal throughout, at best trace. Mobility: Did not attempt to sit or stand this a.m. Results CBC & Chem 7: 04/13/17 23:15 04/13/17 23:15 Labs: Abnormal Lab Results - Last 24 Hours (Table) 04/15/17 04/15/17 04/15/17 Range/Units 06:33 06:33 12:20 POC Glucose (mg/dL) 135 H (75-99) mg/dL Hemoglobin A1c 10.7 H (4.2-6.1) % HDL Cholesterol 27 L (40-60) mg/dL 04/15/17 04/15/17 04/16/17 Range/Units 16:46 21:11 06:01 POC Glucose (mg/dL) 103 H 116 H 108 H (75-99) mg/dL Hemoglobin A1c (4.2-6.1) % HDL Cholesterol (40-60) mg/dL Abdominal x-ray: report reviewed (Negative.) CT Scan - head: report reviewed (Right MCA infarct.) MRI - head: report reviewed (Right MCA infarct.) Assessment and Plan (1) Acute right arterial ischemic stroke, MCA (middle cerebral artery) Status: Acute Plan: Impression: 1. Gait disturbance. 2. Right MCA infarct resultant left hemiplegia. 3. Obese. 4. Hypertension. 5. Dyslipidemia. 6. Diabetes. 7. Active arthritis. 8. History of cancer. 9. History of renal disease. Comments and plan: At this time PT, OT, PORTFOLIO MGR ongoing. Safety concerns noted anticipated. Note that this is a new event for patient and the dramatic change for her functionally. We'll of course consider inpatient rehab. Support at home may be son but he works. is at home and doesn't work but has had multiple strokes per patient.
[2017-04-16 06:56] LABS: Basophils % (A) 1 %; CH 32.4; CHCM 35.7; Eosinophils # (A) 0.2 k/uL (0-0.7); Eosinophils % (A) 2 %; HCT 41.9 % (34.0-46.0); HDW 2.67; HGB 14.5 gm/dL (11.4-16.0); Luc # (Auto) 0.15; Luc % (Auto) 2; Lymphocytes % (A) 27 %; MCH 31.7 pg (25.0-35.0); MCHC 34.7 g/dL (31.0-37.0); MCV 91.3 fL (80.0-100.0); Mean Platelet Volume 7.8; Monocytes # (A) 0.5 k/uL (0-1.0); Monocytes % (A) 7 %; Neutrophils # (A) 4.5 k/uL (1.3-7.7); Neutrophils % (A) 61 %; RBC 4.59 m/uL (3.80-5.40); RDW 13.6 % (11.5-15.5); WBC 7.4 k/uL (3.8-10.6); WBC (Perox) 7.52
[2017-04-16 07:27] LABS: Anion Gap 10 mmol/L; Blood Urea Nitrogen 8 mg/dL (7-17); Calcium 8.6 mg/dL (8.4-10.2); Carbon Dioxide 22 mmol/L (22-30); Chloride 108 mmol/L (98-107); Cholesterol 136 mg/dL (<200); Glucose 89 mg/dL (74-99); HDL Cholesterol 26 mg/dL (40-60); Non-African American GFR(MDRD) >60 (>60 ml/min/1.73 sqM); Potassium 3.6 mmol/L (3.5-5.1); Sodium 140 mmol/L (137-145); Triglycerides 149 mg/dL (<150)
[2017-04-16] MEDS: INSULIN LISPRO (humaLOG) 300 UNIT/3 ML VIAL SQ SCH ×2 (07:27→11:50)
[2017-04-16] MEDS: metFORMIN 500 MG TAB PO SCH (09:30)
[2017-04-16] MEDS: HEPARIN SODIUM,PORCINE 5,000 UNIT/ML 1 ML VIAL SQ SCH (09:30)
[2017-04-16] MEDS: DESVENLAFAXINE SUCCINATE 50 MG TAB.ER.24H PO SCH (09:31)
[2017-04-16] MEDS: LISINOPRIL 20 MG TAB PO SCH (09:31)
[2017-04-16] MEDS: ASPIRIN 81 MG CHEW PO SCH (09:31)
[2017-04-16 09:49] VITALS: RESP 16
[2017-04-16 11:14] LABS: Appearance,Urine Clear (Clear); Bacteria,Urine Rare /hpf; Bilirubin,Urine Negative (Negative); Glucose,Urine (UA) Negative (Negative); Ketones,Urine 1+ (Negative); Leukocyte Esterase,Urine Moderate (Negative); Nitrite,Urine Negative (Negative); PH, Urine 5.5 (5.0-8.0); Particle Count 2826; Protein,Urine Negative (Negative); Specific Gravity,Urine 1.009 (1.001-1.035); UA Billing (MACRO vs. MICRO) MICRO; Urobilinogen,Urine <2.0 mg/dL (<2.0); WBC,Urine 1 /hpf (0-5)
[2017-04-16 11:48] LABS: Glucose,Whole Blood 78 mg/dL (75-99)
[2017-04-16] MEDS: MULTIVITAMINS, THERA 1 EACH TAB PO SCH (11:51)
[2017-04-16 11:55] VITALS: BP 156/74; PULSE 72; TEMP 97.5
--- NOTE | 2017-04-16 15:17 | P.DS ---
Providers Date of admission: 04/13/17 23:55 Attending physician: Gina Ramsay Consults: 04/13/17 23:55 Consult Physician Routine Consulting Provider: Marixa Galo Consult Reason/Comments: cva Do you want consulting provider notified?: Yes 04/15/17 01:09 Consult Physician Routine Consulting Provider: Medhat Salazar Consult Reason/Comments: carotid stenosis Do you want consulting provider notified?: Yes 04/15/17 11:12 Consult Physician Routine Consulting Provider: Ash Augustin Consult Reason/Comments: inpt rehab Do you want consulting provider notified?: Yes Primary care physician: [facility] Course: This 56-year-old woman is admitted with significant left-sided stroke to hospital. The patient was found to have significant lesion on the right side of the brain in the MCA territory . Patient was seen by ID Dr. Galo from neurology and Dr. Alonzo from inpatient rehab. The patient's condition stabilized. Patient will be transferred to inpatient rehab for further evaluation and treatment. Patient also seen by Dr. Salazar vascular surgery. On exam weight is stable cardio system and S2 normal. No system left-sided weakness plus. Chest clear to auscultation. Abdomen soft nontender. Assessment 1. Acute left-sided stroke crossbite right MCA territory CVI. 2. Gait dysfunction next in 3. Increased AST and. Mild hepatitis 5. Diabetes type 2 6. Hypertension Patient Condition at Discharge: Serious Plan - Discharge Summary New Discharge Prescriptions: New Atorvastatin [Lipitor] 10 mg PO HS tab Heparin Sodium,Porcine [Heparin Sodium] 5,000 unit SQ Q12HR vial INSULIN LISPRO (HumaLOG) [humaLOG] 0 unit SQ ACHS #1 vial Continue Multivitamins, Thera [Multivitamin (formulary)] 1 tab PO DAILY Meloxicam 15 mg PO DAILY PRN PRN Reason: Pain Lisinopril [Zestril] 20 mg PO DAILY Desvenlafaxine Succinate [Pristiq ER] 50 mg PO DAILY Aspirin EC [Ecotrin Low Dose] 81 mg PO DAILY metFORMIN HCL [Glucophage] 500 mg PO BID Furosemide [Lasix] 20 mg PO DAILY PRN PRN Reason: Edema lamoTRIgine [LaMICtal] 50 mg PO HS Insulin Glargine [Lantus] 100 unit SQ HS Dapagliflozin Propanediol [Farxiga] 5 mg PO DAILY traMADol HCl [Ultram] 50 mg PO Q6H PRN #20 PRN Reason: Severe Pain Insulin Aspart [NovoLOG] 10 unit SQ TID-W/MEALS #0 Discontinued Simvastatin [Zocor] 20 mg PO HS Discharge Medication List Aspirin EC [Ecotrin Low Dose] 81 mg PO DAILY 05/17/14 [History] Desvenlafaxine Succinate [Pristiq ER] 50 mg PO DAILY 05/17/14 [History] Lisinopril [Zestril] 20 mg PO DAILY 05/17/14 [History] Meloxicam 15 mg PO DAILY PRN 05/17/14 [History] Multivitamins, Thera [Multivitamin (formulary)] 1 tab PO DAILY 05/17/14 [History ] Dapagliflozin Propanediol [Farxiga] 5 mg PO DAILY 04/13/17 [History] Furosemide [Lasix] 20 mg PO DAILY PRN 04/13/17 [History] Insulin Glargine [Lantus] 100 unit SQ HS 04/13/17 [History] lamoTRIgine [LaMICtal] 50 mg PO HS 04/13/17 [History] metFORMIN HCL [Glucophage] 500 mg PO BID 04/13/17 [History] Atorvastatin [Lipitor] 10 mg PO HS tab 04/16/17 [Rx] Heparin Sodium,Porcine [Heparin Sodium] 5,000 unit SQ Q12HR vial 04/16/17 [Rx] INSULIN LISPRO (HumaLOG) [humaLOG] 0 unit SQ ACHS #1 vial 04/16/17 [Rx] Insulin Aspart [NovoLOG] 10 unit SQ TID-W/MEALS #0 04/16/17 [Rx] traMADol HCl [Ultram] 50 mg PO Q6H PRN #20 04/16/17 [Rx] Follow up Appointment(s)/Referral(s): Marixa Galo MD [STAFF PHYSICIAN] - 2 Weeks James García DO [Primary Care Provider] - 1 Week (After DC from inpatient rehab) Ash Augustin MD [STAFF PHYSICIAN] - 04/17/17 Eloy Sam MD [STAFF PHYSICIAN] - 3 Days Activity/Diet/Wound Care/Special Instructions: [facility] rehab Diet: Cardiac, consistent carb Accu-Cheks before meals and at bedtime with sliding scale as ordered Activity: As tolerated CBC, BMP in 3 days
[2017-04-16 16:54] LABS: Glucose,Whole Blood 112 mg/dL (75-99)
--- NOTE | 2017-04-16 18:06 | P.PN ---
Subjective This patient is a 56-year-old female admitted with acute stroke symptoms. Patient presented with acute left-sided hemiparesthesias. She was sent for MRI of the brain today which reveals an acute infarct involving the right middle cerebral artery territory as well as the right frontal parietal lobe. No evidence for acute hemorrhage. MRA of the [place] came back negative for any significant stenosis or aneurysm. We reviewed the results of the MRI/ MRA today with the patient. She continues to show significant left-sided hemiparesis. We will continue her current stroke workup. Patient is being evaluated for transfer to [facility] for subacute rehab. She has been accepted for rehab by Dr. Augustin and she will be transferred there later today. She should continue on ASA for secondary stroke prevention. Her overall prognosis at this time remains very guarded. Objective - Vital Signs Vital signs: Vital Signs Temp 97.5 F L 04/16/17 11:51 Pulse 72 04/16/17 11:51 Resp 16 04/16/17 11:51 BP 156/74 04/16/17 11:51 Pulse Ox 99 04/16/17 11:51 Intake & Output 04/15/17 04/16/17 04/16/17 18:59 06:59 18:59 Intake Total 240 180 Output Total 200 Balance 240 -20 Weight 100.2 kg 100.7 kg Intake: Oral 240 180 Output: Urine 200 Other: Voiding Method Toilet # Voids 1 # Bowel Movements 0 - Exam Physical examination: PHYSICAL EXAMINATION: Patient is resting comfortably in bed. VITAL SIGNS: Blood pressure is [156/74]. Heart rate is [72]. Respiration is [16] . Temperature is [97.5]. HEENT: Head is atraumatic, neck is supple, there were no carotid bruits. CHEST: Lungs are clear to auscultation and percussion. CARDIAC: S1, S2 normal rate and rhythm. There is no murmur. ABDOMEN: Soft and nontender. Bowel sounds are present. EXTREMITIES: There is no pedal edema. Peripheral pulses are present. Neurological examination: Patient's neurological examination is unchanged from yesterday. She has a dense left-sided hemiparesis. - Labs CBC & Chem 7: 04/16/17 06:01 04/16/17 06:01 Labs: Abnormal Lab Results - Last 24 Hours (Table) 04/15/17 04/15/17 04/15/17 Range/Units 10:00 16:46 21:11 Chloride (98-107) mmol/L POC Glucose (mg/dL) 103 H 116 H (75-99) mg/dL HDL Cholesterol (40-60) mg/dL Urine Ketones 1+ H (Negative) Ur Leukocyte Esterase Moderate H (Negative) Urine Bacteria Rare H (None) /hpf 04/16/17 04/16/17 Range/Units 06:01 06:01 Chloride 108 H (98-107) mmol/L POC Glucose (mg/dL) 108 H (75-99) mg/dL HDL Cholesterol 26 L (40-60) mg/dL Urine Ketones (Negative) Ur Leukocyte Esterase (Negative) Urine Bacteria (None) /hpf Assessment and Plan (1) Acute right arterial ischemic stroke, MCA (middle cerebral artery) Status: Acute Code(s): I63.511 - CEREB INFRC D/T UNSP OCCLS OR STENOS OF RIGHT MID CEREB ART (2) Hyperlipidemia Status: Acute Code(s): E78.5 - HYPERLIPIDEMIA, UNSPECIFIED (3) Diabetes mellitus Status: Acute Code(s): E11.9 - TYPE 2 DIABETES MELLITUS WITHOUT COMPLICATIONS (4) Hypertension Status: Acute Code(s): I10 - ESSENTIAL (PRIMARY) HYPERTENSION Plan: This patient is a 56-year-old female who was admitted to hospital with acute onset of left-sided weakness and slurred speech. She was seen in the ER yesterday by Dr. Rosas. Her NIH stroke scale was noted to be 6.0. She underwent a CT scan of the brain as well as a CTA angiogram. Results are as noted above. CAT scan of the brain reveals a acute right MCA stroke. CTA angiogram revealed cutoff of the right MCA at the M1 and M2 junction. The patient was admitted to hospital for a complete stroke evaluation. Her neurological examination reveals acute left-sided hemiparesis with left facial droop and mild expressive aphasia. This patient has suffered an acute right MCA stroke. We have recommended a complete stroke evaluation for the patient. We have recommended an MRI of the brain for further evaluation. She is to be maintained on aspirin daily for secondary stroke prevention pending her MRI results. Her MRI and MRA results were reviewed today with the patient. MRI reveals a acute right MCA stroke. MRA came back negative for any evidence for stenosis or aneurysm. We will continue her current stroke workup. She has been accepted for inpatient rehab at [facility] later today. She should continue on ASA daily for seconadary stroke prevention. Her overall prognosis at this time remains very guarded. We will continue close neurological follow-up of this patient during this admission.
--- NOTE | 2017-04-16 18:55 | P.PN ---
Subjective Date of service 04/15/2017. Personal being dictated for Dr. Ramsay. Interval history: This a 56-year-old female admitted with significant left- sided stroke, significant lesion on the right side of the brain in the MCA territory . Neuro workup completed by Dr. Galo. Brain MRI/MRA reported acute infarct involving right middle cerebral artery territory, right frontal parietal lobe without evidence of acute hemorrhage. MRA of [place] reported no significant stenosis or aneurysm. Carotid Dopplers reported no hemodynamic significant stenosis. Left-sided hemiparesis continues. Evaluated by Dr. Alonzo from inpatient rehab. with final recommendations pending. Review of systems: HEENT: Denies headache or focal deficits. Denies any dizziness or lightheadedness. Facial droop, Slurred speech. Denies difficulty speaking, interpreting, or swallowing. Respiratory: Denies any increased shortness of breath. Cardiac: Denies any chest pain, palpitations. GI: Denies any nausea, vomiting, or diarrhea. Denies any abdominal tenderness. : Denies any dysuria. MS: Left arm weakness Psychiatry: Denies any anxiety or depression. Active Medications Aspirin (Aspirin) 81 mg PO DAILY [facility] Last Admin: 04/15/17 08:19 Dose: 81 mg Atorvastatin Calcium (Lipitor) 10 mg PO [facility] Last Admin: 04/14/17 21:42 Dose: 10 mg Desvenlafaxine Succinate (Pristiq Er) 50 mg PO DAILY [facility] Last Admin: 04/15/17 08:19 Dose: 50 mg Furosemide (Lasix) 20 mg PO DAILY PRN PRN Reason: Edema Heparin Sodium (Porcine) (Heparin) 5,000 unit SQ Q12HR [facility] Last Admin: 04/15/17 08:19 Dose: 5,000 unit Sodium Chloride (Saline 0.9%) 1,000 mls @ 100 mls/hr IV .Q10H [facility] Last Admin: 04/15/17 16:54 Dose: Not Given Insulin Glargine (Lantus) 100 unit SQ [facility] Last Admin: 04/14/17 21:42 Dose: 100 unit Insulin Human Lispro (Humalog) 10 unit SQ TID-W/MEALS [facility] Last Admin: 04/15/17 12:44 Dose: 10 unit Lamotrigine (Lamictal) 50 mg PO [facility] Last Admin: 04/14/17 21:42 Dose: 50 mg Lisinopril (Zestril) 20 mg PO DAILY [facility] Last Admin: 04/15/17 08:19 Dose: 20 mg Meloxicam (Mobic) 15 mg PO DAILY PRN PRN Reason: Pain Metformin HCl (Glucophage) 500 mg PO BID [facility] Last Admin: 04/15/17 08:19 Dose: 500 mg Miscellaneous Information (Rx Info: Iv Contrast Was Given) 1 each MISCELLANE DAILY PRN PRN Reason: Per Protocol Stop: 04/15/17 23:13 Multivitamins (Theragran) 1 each PO DAILY@1200 [facility] Last Admin: 04/15/17 08:19 Dose: 1 each Non-Formulary Medication (Dapagliflozin Propanediol [Farxiga]) 5 mg PO DAILY [facility] Tramadol HCl (Ultram) 50 mg PO Q6H PRN PRN Reason: Severe Pain Last Admin: 04/15/17 12:55 Dose: 50 mg Objective - Vital Signs Vital signs: Vital Signs Temp 97.4 F L 04/15/17 12:00 Pulse 61 04/15/17 12:00 Resp 18 04/15/17 12:00 BP 171/81 04/15/17 12:00 Pulse Ox 95 04/15/17 12:00 Intake & Output 04/14/17 04/15/17 04/15/17 18:59 06:59 18:59 Intake Total 811 1200 240 Output Total 300 Balance 811 900 240 Weight 100.2 kg 100.2 kg Intake: IV 1200 Sodium Chloride 0.9% 1, 1200 000 ml @ 100 mls/hr IV . Q10H [facility] Rx#:[id number] Oral 811 240 Output: Urine 300 Other: Voiding Method Toilet Toilet - Exam PHYSICAL EXAM: VITAL SIGNS: [As above] GENERAL: [Sitting up in bed, no acute distress] HEENT: [Pupils equal conjunctiva normal. Left facial droop,] NECK: [Supple, no JVD] RESPIRATORY EFFORT:[ Normal] LUNGS: [Bilateral bases diminished, no wheezes rhonchi or crackles] CARDIOVASCULAR[ regular S1-S2, no murmurs rubs or gallops, no edema] GI: [Abdomen soft, nontender, positive bowel sounds.] PSYCH: [Alert and oriented -3, mood and affect normal.] NEURO: Left hemiparesis: Left facial droop, slurred speech, left arm motor strength 3 out of 5, unable to do fine motor skills with left hand, - Labs CBC & Chem 7: 04/16/17 06:01 04/16/17 06:01 Labs: Abnormal Lab Results - Last 24 Hours (Table) 04/14/17 04/14/17 04/15/17 Range/Units 17:49 21:26 06:02 POC Glucose (mg/dL) 179 H 147 H 142 H (75-99) mg/dL Hemoglobin A1c (4.2-6.1) % HDL Cholesterol (40-60) mg/dL 04/15/17 04/15/17 04/15/17 Range/Units 06:33 06:33 12:20 POC Glucose (mg/dL) 135 H (75-99) mg/dL Hemoglobin A1c 10.7 H (4.2-6.1) % HDL Cholesterol 27 L (40-60) mg/dL 04/15/17 Range/Units 16:46 POC Glucose (mg/dL) 103 H (75-99) mg/dL Hemoglobin A1c (4.2-6.1) % HDL Cholesterol (40-60) mg/dL Assessment and Plan Plan: 1. Acute left-sided stroke crossbite right MCA territory CVI. 2. Gait dysfunction next in 3. Mild hepatitis 4 Diabetes type 2 5. Hypertension Plan: Continue on current medication regime ,monitoring and symptomatic treatment. Evaluation pending for [facility] rehab. Follow closely with neurology. Prognosis guarded given multiple complex medical issues. The impression and plan of care has been dictated as directed. : I performed a H&P examination of this patient and discussed the same with the dictator. I agree with the dictator's note. Any additional findings/opinions/ etc. will be noted.
--- NOTE | 2017-04-17 11:20 | EEG ---
DATE OF SERVICE: 04/15/2017 ELECTROENCEPHALOGRAPHIC EXAMINATION REPORT INDICATION FOR EXAMINATION: This patient is a 56-year-old female admitted with acute right MCA stroke. Patient with left-sided hemiparesis and facial droop with aphagia. AGE: 56. EEG FINDINGS: A routine 21 channel awake digital EEG recording was accomplished utilizing the 10 - 20 international system with bipolar and referential montages. The background activity in the most alert resting state consists of a low to medium amplitude of 4 Hz activity over the right posterior head region as compared to the left posterior head region where there is 5 to 6 Hz activity seen throughout. This posterior rhythm attenuates minimally to eye opening. There is a small amount of low amplitude 18 - 20 Hz beta activity seen maximally over the anterior head regions. Muscle and movement artifact was observed on a few occasions during the tracing. Hyperventilation was not performed. Photic stimulation at flash frequencies of 2 - 30 Hz produced a minimal occipital driving response. No epileptiform discharges were seen. IMPRESSION: This EEG is moderately abnormal in diffuse fashion due to slowing of the EEG background. The EEG also reveals focal slowing over the right hemisphere consistent with the destructive lesion. If clinically indicated, a followup EEG is recommended. Clinical correlation is recommended. MTDD
== END 2017-04-16 17:29 | disposition home or self-care (01) | DRG 65 ==
LOC: EC 22:58 → 6SEL 23:55
PROVIDERS: ADMIT Hospitalist; ATTEND Hospitalist
DX: I63.511 Cerebral infarction due to unspecified occlusion or stenosis of right middle cerebral artery (principal); G81.94 Hemiplegia, unspecified affecting left nondominant side; K75.9 Inflammatory liver disease, unspecified; I10 Essential (primary) hypertension; E11.319 Type 2 diabetes mellitus with unspecified diabetic retinopathy without macular edema; E78.5 Hyperlipidemia, unspecified; E66.9 Obesity, unspecified; I65.23 Occlusion and stenosis of bilateral carotid arteries; K58.9 Irritable bowel syndrome, unspecified; M19.90 Unspecified osteoarthritis, unspecified site; R29.810 Facial weakness; R29.6 Repeated falls; Z68.34 Body mass index [BMI] 34.0-34.9, adult; Z79.4 Long term (current) use of insulin; Z79.84 Long term (current) use of oral hypoglycemic drugs; Z79.899 Other long term (current) drug therapy; Z82.3 Family history of stroke; Z82.49 Family history of ischemic heart disease and other diseases of the circulatory system; Z83.3 Family history of diabetes mellitus; Z85.42 Personal history of malignant neoplasm of other parts of uterus; Z86.14 Personal history of Methicillin resistant Staphylococcus aureus infection; Z87.01 Personal history of pneumonia (recurrent); Z87.891 Personal history of nicotine dependence; M26.24 Reverse articulation; F41.9 Anxiety disorder, unspecified; F32.9 Major depressive disorder, single episode, unspecified
CPT/HCPCS: 36415; 70450; 70496; 70498; 70544; 70551; 71020; 80048; 80053; 80061; 81001; 82550; 82553; 83036; 84484; 85025; 85610; 85730; 93005; 93306; 93880; 94760; 95819; 96360; 99291

== ENCOUNTER → 2018-02-09 | Outpatient (CLI) | payer OTHER ==
[2018-02-09 17:32] LABS: Collection Time,Urine 24 hrs; Total Volume 24 Hour,Urine 500 mls (800-1800)
[2018-02-09 17:53] LABS: Total Protein 24 Hour,Urine 40 mg/24hr (42.0-225.0)
[2018-02-09 17:54] LABS: Creatinine 24 Hour,Urine 611.5 mg/24hr (800.0-1800.0)
== END | disposition home or self-care (01) ==
LOC: LABWHC1 13:03
PROVIDERS: ATTEND Family Medicine
DX: N28.9 Disorder of kidney and ureter, unspecified (principal)
CPT/HCPCS: 36415; 81050; 82575; 84156

== ENCOUNTER → 2018-02-19 | Outpatient (CLI) | payer OTHER ==
--- NOTE | 2018-02-22 10:17 | MM ---
Reason for exam: screening (asymptomatic). Last mammogram was performed 1 year and 1 month ago. History: Patient is postmenopausal and has history of other cancer at age 52. Family history of breast cancer in mother at age 50, breast cancer in paternal grandmother at age 60, breast cancer in maternal grandfather, and premenopausal breast cancer in sister at age 40. Physical Findings: A clinical breast exam by your physician is recommended on an annual basis and results should be correlated with mammographic findings. MG Screening Mammo w CAD Bilateral CC and MLO view(s) were taken. Prior study comparison: January 21, 2017, bilateral MG screening mammo w CAD. June 13, 2015, bilateral MG screening mammo w CAD. There are scattered fibroglandular densities. Benign appearing bilateral calcifications. No suspicious abnormality. No significant changes when compared with prior studies. ASSESSMENT: Benign, BI-RAD 2 RECOMMENDATION: Routine screening mammogram of both breasts in 1 year.
== END ==
LOC: RADMAMWWP 08:10
PROVIDERS: ATTEND Family Medicine
DX: Z12.31 Encounter for screening mammogram for malignant neoplasm of breast (principal)
CPT/HCPCS: 77067

== ENCOUNTER → 2018-03-04 | Outpatient (CLI) | payer OTHER ==
--- NOTE | 2018-03-04 15:11 | CT ---
EXAMINATION TYPE: CT abdomen wo con DATE OF EXAM: 03/04/2018 COMPARISON: NONE HISTORY: Hydronephrosis left kidney. CT DLP: 701.1 mGycm Automated exposure control for dose reduction was used. TECHNIQUE: Helical acquisition of images was performed from the lung bases through the top of iliac crest to include entire abdomen. CONTRAST: Performed without Oral Contrast and without IV contrast. FINDINGS: Lack of intravenous and oral contrast limits evaluation of both hollow and solid viscera. LUNG BASES: No significant abnormality is appreciated. LIVER/GB: Gallbladder is surgically absent. Hepatic parenchyma is of unremarkable unenhanced morpholo gy. PANCREAS: No significant abnormality is seen. No pancreatic ductal dilatation. SPLEEN: No significant abnormality is seen. No splenomegaly. ADRENALS: No significant abnormality is seen. No nodularity or thickening. KIDNEYS: There are at least 7 nonobstructing punctate 1 to 2 mm left renal calculi. On the right ther e are at least 11 small nonobstructing renal pelvis bilaterally with the largest measuring 5 mm withi n the right midpole. Additionally there is very mild left hydroureteronephrosis with uroepithelial fat stranding of the pr oximal ureter secondary to multiple obstructing left mid ureteral calculi (approximately 3 in number measuring 7 mm, 7 mm and 6 mm. No right ureteral calculi are seen. BOWEL: No significant abnormality is seen. LYMPH NODES: No greater than 1 cm short axis lymph node is seen. 8mm nonenlarged portacaval lymph no de is present. OSSEOUS STRUCTURES: Moderate multilevel degenerative changes of the spine are seen. FREE AIR: No free air is visualized. OTHER: Moderate atherosclerosis of the abdominal aorta and its branches are noted. IMPRESSION: MULTIPLE (APPROXIMATELY 3) OBSTRUCTING LEFT MID URETERAL CALCULI CREATING MILD LEFT HYDROURETERONEPHR OSIS. MULTIPLE ADDITIONAL NONOBSTRUCTING RENAL CALCULI ARE ALSO SEEN DESCRIBED ABOVE.
== END ==
LOC: RADCTMAIN 14:26
PROVIDERS: ATTEND Family Medicine
DX: N13.2 Hydronephrosis with renal and ureteral calculous obstruction (principal)
CPT/HCPCS: 74150

== ENCOUNTER 2018-04-17 17:20 | Inpatient (IN) | payer OTHER ==
[2018-04-17] MEDS ORDERED: SODIUM CHLORIDE 0.9% 1,000 ML IV STA (17:35)
--- NOTE | 2018-04-17 17:38 | ED ---
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 She is unable to totally describe with the her leg. She is here today for evaluation she denies any fevers chills nausea vomiting sweats focal weakness or other symptoms she did state she has some exertional dyspnea recently going down steps and she has recently been having chest pain. None at this time. - Related Data Home Medications: Home Medications Medication Instructions Recorded Confirmed Aspirin EC [Ecotrin Low Dose] 243 mg PO DAILY 05/17/14 04/17/18 Desvenlafaxine Succinate [Pristiq 50 mg PO DAILY 05/17/14 04/17/18 ER] Lisinopril [Zestril] 20 mg PO DAILY 05/17/14 04/17/18 Multivitamins, Thera [Multivitamin 1 tab PO DAILY 05/17/14 04/17/18 (formulary)] Dapagliflozin Propanediol [Farxiga] 5 mg PO DAILY 04/13/17 04/17/18 Insulin Glargine [Lantus] 40 unit SQ HS 04/13/17 04/17/18 lamoTRIgine [LaMICtal] 50 mg PO HS 04/13/17 04/17/18 Acetaminophen Tab [Tylenol Tab] 500 mg PO Q6H PRN 04/17/18 04/17/18 Atorvastatin [Lipitor] 80 mg PO HS 04/17/18 04/17/18 Lisinopril-Hctz 20-12.5 mg 1 tab PO DAILY 04/17/18 04/17/18 [Zestoretic 20-12.5] metFORMIN HCL 1,000 mg PO BID 04/17/18 04/17/18 Previous Rx's Medication Instructions Recorded traMADol HCl [Ultram] 50 mg PO Q6H PRN #20 04/16/17 Allergies/Adverse Reactions: Allergies Allergy/AdvReac Type Severity Reaction Status Date / Time No Known Allergies Allergy Verified 04/17/18 18:01 Review of Systems ROS Statement: Those systems with pertinent positive or pertinent negative responses have been documented in the HPI. ROS Other: All systems not noted in ROS Statement are negative. General Exam - General Exam Comments Initial Comments: This a well-developed well-nourished awake alert oriented 3 female Limitations: no limitations General appearance: alert, in no apparent distress Head exam: Present: atraumatic, normocephalic, normal inspection Eye exam: Present: normal appearance, PERRL, EOMI. Absent: scleral icterus, conjunctival injection, periorbital swelling ENT exam: Present: normal oropharynx, mucous membranes moist, other (Evidence of facial asymmetry in the left compared to the right.) Neck exam: Present: normal inspection. Absent: tenderness, meningismus, lymphadenopathy Respiratory exam: Present: normal lung sounds bilaterally. Absent: respiratory distress, wheezes, rales, rhonchi, stridor Cardiovascular Exam: Present: regular rate, normal rhythm, normal heart sounds. Absent: systolic murmur, diastolic murmur, rubs, gallop, clicks GI/Abdominal exam: Present: soft, normal bowel sounds. Absent: distended, tenderness, guarding, rebound, rigid Extremities exam: Present: normal inspection, full ROM, normal capillary refill. Absent: tenderness, pedal edema, joint swelling, calf tenderness Back exam: Present: normal inspection Neurological exam: Present: alert, oriented X3, CN II-XII intact Psychiatric exam: Present: normal affect, normal mood Skin exam: Present: warm, intact, normal color, diaphoretic. Absent: rash Stroke [facility] - Lab Data Result diagrams: 04/17/18 17:44 04/17/18 17:44 Lab Results 04/17/18 04/17/18 04/17/18 Range/Units 17:40 17:44 17:44 WBC 8.0 (3.8-10.6) k/uL RBC 4.80 (3.80-5.40) m/uL Hgb 14.1 (11.4-16.0) gm/dL Hct 43.2 (34.0-46.0) % MCV 89.9 (80.0-100.0) fL MCH 29.3 (25.0-35.0) pg MCHC 32.6 (31.0-37.0) g/dL RDW 12.7 (11.5-15.5) % Plt Count 338 (150-450) k/uL Neutrophils % 60 % Lymphocytes % 30 % Monocytes % 5 % Eosinophils % 3 % Basophils % 1 % Neutrophils # 4.8 (1.3-7.7) k/uL Lymphocytes # 2.4 (1.0-4.8) k/uL Monocytes # 0.4 (0-1.0) k/uL Eosinophils # 0.2 (0-0.7) k/uL Basophils # 0.1 (0-0.2) k/uL PT (9.0-12.0) sec INR (<1.2) APTT (22.0-30.0) sec Sodium (137-145) mmol/L Potassium (3.5-5.1) mmol/L Chloride (98-107) mmol/L Carbon Dioxide (22-30) mmol/L Anion Gap mmol/L BUN (7-17) mg/dL Creatinine (0.52-1.04) mg/dL Est GFR (CKD-EPI)AfAm (>60 ml/min/1.73 sqM) Est GFR (CKD-EPI)NonAf (>60 ml/min/1.73 sqM) Glucose (74-99) mg/dL POC Glucose (mg/dL) 136 H (75-99) mg/dL POC Glu Coal Gasification Technician ID Calcium (8.4-10.2) mg/dL Total Bilirubin (0.2-1.3) mg/dL AST (14-36) U/L ALT (9-52) U/L Alkaline Phosphatase (38-126) U/L Total Creatine Kinase 144 H (30-135) U/L CK-MB (CK-2) 2.3 (0.0-2.4) ng/mL CK-MB (CK-2) Rel Index 1.6 Troponin I <0.012 (0.000-0.034) ng/mL Total Protein (6.3-8.2) g/dL Albumin (3.5-5.0) g/dL Urine Color Urine Appearance (Clear) Urine pH (5.0-8.0) Ur Specific [place] (1.001-1.035) Urine Protein (Negative) Urine Glucose (UA) (Negative) Urine Ketones (Negative) Urine Blood (Negative) Urine Nitrite (Negative) Urine Bilirubin (Negative) Urine Urobilinogen (<2.0) mg/dL Ur Leukocyte Esterase (Negative) Urine RBC (0-5) /hpf Urine WBC (0-5) /hpf Ur Squamous Epith Cells (0-4) /hpf Urine Bacteria (None) /hpf Urine Mucus (None) /hpf 04/17/18 04/17/18 04/17/18 Range/Units 17:44 18:13 18:48 WBC (3.8-10.6) k/uL RBC (3.80-5.40) m/uL Hgb (11.4-16.0) gm/dL Hct (34.0-46.0) % MCV (80.0-100.0) fL MCH (25.0-35.0) pg MCHC (31.0-37.0) g/dL RDW (11.5-15.5) % Plt Count (150-450) k/uL Neutrophils % % Lymphocytes % % Monocytes % % Eosinophils % % Basophils % % Neutrophils # (1.3-7.7) k/uL Lymphocytes # (1.0-4.8) k/uL Monocytes # (0-1.0) k/uL Eosinophils # (0-0.7) k/uL Basophils # (0-0.2) k/uL PT 10.4 (9.0-12.0) sec INR 1.1 (<1.2) APTT 21.7 L (22.0-30.0) sec Sodium 140 (137-145) mmol/L Potassium 4.6 (3.5-5.1) mmol/L Chloride 101 (98-107) mmol/L Carbon Dioxide 24 (22-30) mmol/L Anion Gap 15 mmol/L BUN 35 H (7-17) mg/dL Creatinine 1.50 H (0.52-1.04) mg/dL Est GFR (CKD-EPI)AfAm 45 (>60 ml/min/1.73 sqM) Est GFR (CKD-EPI)NonAf 39 (>60 ml/min/1.73 sqM) Glucose 141 H (74-99) mg/dL POC Glucose (mg/dL) (75-99) mg/dL POC Glu Coal Gasification Technician ID Calcium 10.2 (8.4-10.2) mg/dL Total Bilirubin 0.4 (0.2-1.3) mg/dL AST 25 (14-36) U/L ALT 28 (9-52) U/L Alkaline Phosphatase 60 (38-126) U/L Total Creatine Kinase (30-135) U/L CK-MB (CK-2) (0.0-2.4) ng/mL CK-MB (CK-2) Rel Index Troponin I (0.000-0.034) ng/mL Total Protein 7.5 (6.3-8.2) g/dL Albumin 4.6 (3.5-5.0) g/dL Urine Color Light Yellow Urine Appearance Clear (Clear) Urine pH 5.5 (5.0-8.0) Ur Specific [place] 1.016 (1.001-1.035) Urine Protein Negative (Negative) Urine Glucose (UA) 4+ H (Negative) Urine Ketones Negative (Negative) Urine Blood Negative (Negative) Urine Nitrite Negative (Negative) Urine Bilirubin Negative (Negative) Urine Urobilinogen <2.0 (<2.0) mg/dL Ur Leukocyte Esterase Trace H (Negative) Urine RBC 1 (0-5) /hpf Urine WBC 4 (0-5) /hpf Ur Squamous Epith Cells 1 (0-4) /hpf Urine Bacteria Rare H (None) /hpf Urine Mucus Rare H (None) /hpf - NIH Stroke Scale 1a. Level of Consciousness: (0) alert 1b. LOC Questions: (0) answers correctly 1c. LOC Commands: (0) performs tasks correctly 2. Best Gaze: (0) normal 3. Visual: (0) no visual loss 4. Facial Palsy: (1) minor paralysis 5a. Motor Arm Left: (0) no drift 5b. Motor Arm Right: (0) no drift 6a. Motor Leg Left: (0) no drift 6b. Motor Leg Right: (0) no drift 7. Limb Ataxia: (0) absent 8. Sensory: (0) normal 9. Best Language: (0) no aphasia 10. Dysarthria: (0) normal 11. Extinction/Inattention: (0) no abnormality - Medical Decision Making I did review the imaging and report no acute findings are seen. I did discuss case the patient and with Dr. Jacobson. Patient be admitted for evaluation by neurology. - EKG Data -: EKG Interpreted by Me EKG shows normal: sinus rhythm (Sinus rhythm rate 71 appear interval 176 QRS duration 70 QT since QTC 406/[address]-T wave changes.) Past Medical History Past Medical History: Cancer, Chest Pain / Angina, CVA/TIA, Diabetes Mellitus, Hypertension, Osteoarthritis (OA), Pneumonia, Renal Disease Additional Past Medical History / Comment(s): uterine cancer stage II status post total hysterectomy with bilateral salpingo-oophorectomy. Treated at [facility]. No chemotherapy or radiation therapy. IBS, diverticulitis, BRONCHNITIS, history of abscess to the left lower extremity with MRSA in 2012. CELLULITIS RT LOWER LEG/FOOT. History of Any Multi-Drug Resistant Organisms: MRSA Date of last positivie culture/infection: 2011 MDRO Source:: left leg Past Surgical History: Cholecystectomy, Hysterectomy, Tonsillectomy Past Anesthesia/Blood Transfusion Reactions: No Reported Reaction Past Psychological History: Anxiety, Depression Smoking Status: Former smoker Past Alcohol Use History: None Reported Past Drug Use History: Marijuana - Past Family History Father Family Medical History: Congestive Heart Failure (CHF), Diabetes Mellitus, Dialysis, Hyperlipidemia, Hypertension, Renal Disease Additional Family Medical History / Comment(s): AT AGE 64- Mother Family Medical History: CVA/TIA, Diabetes Mellitus, Hyperlipidemia, Hypertension , Myocardial Infarction (CT) Additional Family Medical History / Comment(s): MOM AT AGE 74. Course Vital Signs 04/17/18 04/17/18 17:23 18:30 Temperature 98.3 F Pulse Rate 80 82 Respiratory 20 20 Rate Blood Pressure 144/73 132/56 O2 Sat by Pulse 99 99 Oximetry Disposition Clinical Impression: Transient cerebral ischemia, Renal insufficiency Disposition: ADMITTED IP TO THIS HOSP Condition: Stable Referrals: James García DO [Primary Care Provider] - 1-2 days
[2018-04-17 17:43] LABS: Glucose,Whole Blood 136 mg/dL (75-99)
[2018-04-17 18:00] LABS: Basophils # (A) 0.1 k/uL (0-0.2); Basophils % (A) 1 %; Eosinophils # (A) 0.2 k/uL (0-0.7); Eosinophils % (A) 3 %; HCT 43.2 % (34.0-46.0); HGB 14.1 gm/dL (11.4-16.0); Lymphocytes # (A) 2.4 k/uL (1.0-4.8); Lymphocytes % (A) 30 %; MCH 29.3 pg (25.0-35.0); MCHC 32.6 g/dL (31.0-37.0); MCV 89.9 fL (80.0-100.0); Mean Platelet Volume 7.4; Monocytes # (A) 0.4 k/uL (0-1.0); Monocytes % (A) 5 %; Neutrophils # (A) 4.8 k/uL (1.3-7.7); Neutrophils % (A) 60 %; Platelet Count 338 k/uL (150-450); RDW 12.7 % (11.5-15.5)
--- NOTE | 2018-04-17 18:04 | CT ---
EXAMINATION TYPE: CT brain wo con for TPA DATE OF EXAM: 04/17/2018 COMPARISON: 04/13/2017. HISTORY: Left sided weakness and elevated blood pressure CT DLP: 1064.3 mGycm Automated exposure control for dose reduction was used. FINDINGS: There is encephalomalacia within the right frontal, parietal, and insular lobes correlating to the pr ior infarct of the 04/13/2017 in the distribution of the middle cerebral artery. No current evidence o f gonsalez-white junction blurring is seen to indicate acute infarct on CT although if there is clinical concern MRI is suggested. No hyperdense MCA sign is identified. No hydrocephalus. No suspicious extra -axial fluid collection. No evidence of acute intracranial hemorrhage or midline shift. Calvarium is intact. Paranasal sinuses and mastoid air cells are well aerated. IMPRESSION: 1. NO ACUTE INTRACRANIAL PROCESS. NO EVIDENCE OF ACUTE INTRACRANIAL HEMORRHAGE. 2. ENCEPHALOMALACIA IN THE DISTRIBUTION OF THE RIGHT MIDDLE CEREBRAL ARTERY SEQUELA OF THE PREVIOU SLY SEEN INFARCT ON THE EXAM OF 04/13/2017.
--- NOTE | 2018-04-17 18:05 | XR ---
EXAMINATION TYPE: XR chest 2V DATE OF EXAM: 04/17/2018 COMPARISON: 04/13/2017 HISTORY: Altered mental status TECHNIQUE: Frontal and lateral views of the chest are obtained. FINDINGS: There is no focal air space opacity, pleural effusion, or pneumothorax seen. The cardiac silhouette size is within normal limits. The osseous structures are intact. Moderate multilevel deg enerative changes of the thoracic spine are seen. IMPRESSION: No acute cardiopulmonary process.
[2018-04-17 18:10] LABS: Albumin 4.6 g/dL (3.5-5.0); Calcium 10.2 mg/dL (8.4-10.2); Potassium 4.6 mmol/L (3.5-5.1); Total Bilirubin 0.4 mg/dL (0.2-1.3); Total Protein 7.5 g/dL (6.3-8.2)
[2018-04-17 18:25] LABS: Creatine Kinase 144 U/L (30-135)
[2018-04-17 18:38] LABS: Creatine Kinase MB 2.3 ng/mL (0.0-2.4); Troponin I <0.012 ng/mL (0.000-0.034)
[2018-04-17 18:39] LABS: INR 1.1 (<1.2); Prothrombin Time 10.4 sec (9.0-12.0)
[2018-04-17 18:40] LABS: Partial Thromboplastin Time 21.7 sec (22.0-30.0)
[2018-04-17 19:02] LABS: Appearance,Urine Clear (Clear); Bacteria,Urine Rare /hpf; Bilirubin,Urine Negative (Negative); Blood,Urine Negative (Negative); Color,Urine Light Yellow; Glucose,Urine (UA) 4+ (Negative); Ketones,Urine Negative (Negative); Leukocyte Esterase,Urine Trace (Negative); Mucus,Urine Rare /hpf; Nitrite,Urine Negative (Negative); PH, Urine 5.5 (5.0-8.0); Protein,Urine Negative (Negative); RBC,Urine 1 /hpf (0-5); Specific Gravity,Urine 1.016 (1.001-1.035); Squamous Epithelial Cell,Urine 1 /hpf (0-4); Urobilinogen,Urine <2.0 mg/dL (<2.0); WBC,Urine 4 /hpf (0-5)
[2018-04-17] MEDS ORDERED: ACETAMINOPHEN TAB 500 MG TAB PO PRN (20:47)
[2018-04-17] MEDS ORDERED: INSULIN DETEMIR 100 UNIT/ML 10 ML VIAL SQ SCH (21:00)
[2018-04-17 21:39] LABS: Glucose,Whole Blood 108 mg/dL (75-99)
[2018-04-17] MEDS: INSULIN ASPART 100 UNIT/ML 1 ML 10 ML VIAL SQ SCH (21:56)
[2018-04-17] MEDS: lamoTRIgine 25 MG TAB PO SCH (22:21)
[2018-04-17] MEDS: SODIUM CHLORIDE 0.9% 1,000 ML IV SCH (22:21)
[2018-04-17] MEDS: ATORVASTATIN 80 MG TAB PO SCH (22:21)
[2018-04-17] MEDS: metFORMIN 500 MG TAB PO SCH (22:22)
[2018-04-18] MEDS ORDERED: INSULIN DETEMIR 100 UNIT/ML 10 ML VIAL SQ SCH (06:14)
[2018-04-18 06:43] LABS: Glucose,Whole Blood 106 mg/dL (75-99)
[2018-04-18] MEDS: SODIUM CHLORIDE 0.9% 1,000 ML IV SCH (06:48)
[2018-04-18] MEDS: INSULIN ASPART 100 UNIT/ML 1 ML 10 ML VIAL SQ SCH ×4 (06:48→21:05)
[2018-04-18 07:15] LABS: Cholesterol 151 mg/dL (<200); HDL Cholesterol 31 mg/dL (40-60); LDL Cholesterol,Calculated 63 mg/dL (0-99); Triglycerides 284 mg/dL (<150)
[2018-04-18] MEDS: Dapagliflozin Propanediol [Farxiga] 5 MG PO SCH (07:52)
[2018-04-18] MEDS: ASPIRIN 81 MG PO SCH (07:53)
[2018-04-18] MEDS: DESVENLAFAXINE SUCCINATE 50 MG TAB.ER.24H PO SCH (07:54)
[2018-04-18] MEDS: metFORMIN 500 MG TAB PO SCH ×2 (07:54→21:09)
[2018-04-18] MEDS ORDERED: LISINOPRIL-HCTZ 20-12.5 MG 1 EACH TAB PO SCH (09:00)
[2018-04-18] MEDS: MULTIVITAMINS, THERA 1 EACH TAB PO SCH (11:46)
[2018-04-18 11:47] LABS: Glucose,Whole Blood 109 mg/dL (75-99)
--- NOTE | 2018-04-18 16:02 | P.CNNES ---
History of Present Illness Consult date: 04/18/18 Requesting physician: Reyes Garcia Reason for Consult: TIA Chief complaint: Altered Mental Status History of Present Illness: Neurology is consulting on a 57-year-old female for possible seizure. Patient has prior history of CVA with some left residual facial asymmetry. Patient states that she's been having seizure-like episodes up to 2 times in the last month. Activity involves intermittent unilateral neurological changes which last minutes to hours per patient. Patient denies any fever, chills, nausea, vomiting, focal weakness or other neurological symptoms. patient did have CT brain with comparison to 03/2017 prior infarct distribution of middle cerebral artery. CT brain noted no acute intracranial process. Also noted encephalomalacia in the distribution of the right MCA sequela of the previous infarct of 04/09/01/05. Patient does have significant diabetic history as well as vision changes associated with her diabetes according the patient as conveyed to her by her can machine operator. Description is consistent with possible diabetic retinopathy. patient cannot state whether or not the current noted mild upper perioral droop is any worse than her previous residual deficit. Patient has no other remaining deficits. Patient is currently on home medications as follows: Aspirin, Lipitor 80 mg daily at bedtime. Review of Systems systems not noted in HPI or negative Past Medical History Past Medical History: Cancer, Chest Pain / Angina, CVA/TIA, Diabetes Mellitus, Hyperlipidemia, Hypertension, Osteoarthritis (OA), Pneumonia, Renal Disease Additional Past Medical History / Comment(s): uterine cancer stage II status post total hysterectomy with bilateral salpingo-oophorectomy. Treated at [facility]. No chemotherapy or radiation therapy. IBS, diverticulitis, BRONCHNITIS, history of abscess to the left lower extremity with MRSA in 2011. CELLULITIS RT LOWER, kidney strones, pt. states her kidney ouput is only 45% History of Any Multi-Drug Resistant Organisms: MRSA Date of last positivie culture/infection: 2011 MDRO Source:: left leg Past Surgical History: Cholecystectomy, Hysterectomy, Tonsillectomy Past Anesthesia/Blood Transfusion Reactions: No Reported Reaction Smoking Status: Former smoker - Past Family History Father Family Medical History: Congestive Heart Failure (CHF), Diabetes Mellitus, Dialysis, Hyperlipidemia, Hypertension, Renal Disease Additional Family Medical History / Comment(s): AT AGE 64- Mother Family Medical History: CVA/TIA, Diabetes Mellitus, Hyperlipidemia, Hypertension , Myocardial Infarction ([place]) Additional Family Medical History / Comment(s): MOM AT AGE 74. Medications and Allergies Home Medications Medication Instructions Recorded Confirmed Type Aspirin EC [Ecotrin Low Dose] 243 mg PO DAILY 05/17/14 04/17/18 History Desvenlafaxine Succinate [Pristiq 50 mg PO DAILY 05/17/14 04/17/18 History ER] Lisinopril [Zestril] 20 mg PO DAILY 05/17/14 04/17/18 History Multivitamins, Thera [Multivitamin 1 tab PO DAILY 05/17/14 04/17/18 History (formulary)] Dapagliflozin Propanediol [Farxiga] 5 mg PO DAILY 04/13/17 04/17/18 History Insulin Glargine [Lantus] 40 unit SQ HS 04/13/17 04/17/18 History lamoTRIgine [LaMICtal] 50 mg PO HS 04/13/17 04/17/18 History traMADol HCl [Ultram] 50 mg PO Q6H PRN #20 04/16/17 04/17/18 Rx Acetaminophen Tab [Tylenol Tab] 500 mg PO Q6H PRN 04/17/18 04/17/18 History Atorvastatin [Lipitor] 80 mg PO HS 04/17/18 04/17/18 History Lisinopril-Hctz 20-12.5 mg 1 tab PO DAILY 04/17/18 04/17/18 History [Zestoretic 20-12.5] metFORMIN HCL 1,000 mg PO BID 04/17/18 04/17/18 History Allergies Allergy/AdvReac Type Severity Reaction Status Date / Time No Known Allergies Allergy Verified 04/17/18 18:01 Physical Examination - Vital Signs Vital Signs: Vital Signs Temp Pulse Pulse Pulse Resp BP BP 04/18/18 11:54 63 04/18/18 11:14 63 16 90/42 04/18/18 07:56 60 16 04/18/18 07:43 98.4 F 63 16 108/76 04/18/18 05:45 98.1 F 66 18 122/67 04/18/18 01:30 98.3 F 60 60 18 109/61 04/17/18 21:25 98.8 F 66 66 17 113/69 04/17/18 20:46 68 18 133/63 04/17/18 18:30 82 20 132/56 04/17/18 17:23 98.3 F 80 20 144/73 Pulse Ox 04/18/18 11:54 04/18/18 11:14 98 04/18/18 07:56 04/18/18 07:43 98 04/18/18 05:45 96 04/18/18 01:30 96 04/17/18 21:25 98 04/17/18 20:46 99 04/17/18 18:30 99 04/17/18 17:23 99 Intake and Output 04/18/18 04/18/18 04/18/18 06:59 14:59 22:59 Intake Total 1480 360 Balance 1480 360 Intake: Intake, IV Titration 1000 Amount Sodium Chloride 0.9% 1, 1000 000 ml @ 100 mls/hr IV . Q10H [facility] Rx#:[id number] Oral 480 360 Other: Voiding Method Toilet # Voids 3 2 Weight 96.3 kg General appearance: Alert & oriented x3, no apparent distress. Head: Atraumatic, normocephalic, normal inspection Eyes: Well appearance, PERRLA, EOMI. Absent scleral icterus, conjunctival injection, nystagmus, periorbital swelling. Ear, nose and throat: Normal exam, mucous membranes moist Neck: Normal inspection, absent tenderness, lymphadenopathy. Respiratory: No increased work of breathing Cardiovascular: Regular rate, rhythm GI/abdominal: no guarding Extremities: full range of motion 4 Neurological: cranial nerves II through XII intact no lateralizing weakness no seizure activity noted on physical exam no pronator drift and no nystagmus. Upper and lower extremities are equal and symmetrical at 4+ out of 55 Sensation: upper and lower extremities are equal and symmetrical to light touch. Psychological: Mood and affect appropriate for setting. Results CT brain: No acute intracranial process, no evidence of acute intracranial hemorrhage. Encephalomalacia in the distribution of the right MCA is some follow-up of the previous infarct of . EEG ordered Serum homocystine level ordered Fasting lipid panel ordered - Laboratory Findings CBC and BMP: 04/17/18 17:44 04/17/18 17:44 Abnormal Lab Findings: Abnormal Labs 04/17/18 04/17/18 04/17/18 17:40 17:44 17:44 APTT BUN 35 H Creatinine 1.50 H Glucose 141 H POC Glucose (mg/dL) 136 H Total Creatine Kinase 144 H Triglycerides HDL Cholesterol Urine Glucose (UA) Ur Leukocyte Esterase Urine Bacteria Urine Mucus 04/17/18 04/17/18 04/17/18 18:13 18:48 21:37 APTT 21.7 L BUN Creatinine Glucose POC Glucose (mg/dL) 108 H Total Creatine Kinase Triglycerides HDL Cholesterol Urine Glucose (UA) 4+ H Ur Leukocyte Esterase Trace H Urine Bacteria Rare H Urine Mucus Rare H 04/18/18 04/18/18 04/18/18 06:23 06:40 11:45 APTT BUN Creatinine Glucose POC Glucose (mg/dL) 106 H 109 H Total Creatine Kinase Triglycerides 284 H HDL Cholesterol 31 L Urine Glucose (UA) Ur Leukocyte Esterase Urine Bacteria Urine Mucus Assessment and Plan (1) Transient cerebral ischemia Narrative/Plan: patient's presentation and symptoms are more likely consistent with TIA versus seizure. Patient does have history of TIA and CVA. At this time we will workup the patient for both TIA and seizure. Further recommendations will be forthcoming once the results of testing is received and reviewed. patient is currently asymptomatic with regard to TIA reported symptoms. Patient is also remains seizure free since hospitalization. Nursing to continue ongoing surveillance. Neuro checks as ordered. Seizure precautions per protocol. Order: EEG Ordered: Serum homocystine level Current Visit: Yes Status: Acute Code(s): G45.9 - TRANSIENT CEREBRAL ISCHEMIC ATTACK, UNSPECIFIED SNOMED Code(s): 096607405 (2) Diabetes mellitus Narrative/Plan: patient has significant history of intermittently managed type 2 diabetes. Patient does possibly have secondary sequela of diabetes consistent with diabetic retinopathy. Continue to control blood glucose within normal parameters Defer to primary team for management Current Visit: No Status: Acute Code(s): E11.9 - TYPE 2 DIABETES MELLITUS WITHOUT COMPLICATIONS SNOMED Code(s): 56154291 (3) Hyperlipidemia Narrative/Plan: hyperlipidemia noted on laboratory blood work. Noted elevated triglycerides. triglycerides = 284 HDL =31 Patient is currently taking Lipitor 80 mg daily. Lipitor was initiated prior to hospitalization. Prescribed: Lofibra 54 mg, 1 tab by mouth daily, formulary substitution for TriCor 48 mg daily Current Visit: No Status: Acute Code(s): E78.5 - HYPERLIPIDEMIA, UNSPECIFIED SNOMED Code(s): 25677378 (4) Hypertension Narrative/Plan: management per primary team. Current Visit: No Status: Acute Code(s): I10 - ESSENTIAL (PRIMARY) HYPERTENSION SNOMED Code(s): 54350948 Plan: Status: Neurology will continue to follow and provide updates as needed or warranted. Contact our office with any questions I have discussed the plan of care with the physician prior to implementation and he agrees with the plan as implemented.
[2018-04-18] MEDS ORDERED: ACETAMINOPHEN TAB 325 MG TAB PO PRN (16:35)
[2018-04-18] MEDS ORDERED: MAGNESIUM HYDROXIDE 2,400 MG/10 ML CUP PO PRN (16:35)
[2018-04-18] MEDS ORDERED: LACTULOSE 20 GM/30 ML CUP PO PRN (16:35)
[2018-04-18] MEDS ORDERED: ONDANSETRON 4 MG/2 ML VIAL IVP PRN (16:35)
[2018-04-18] MEDS ORDERED: CALCIUM CARBONATE 500 MG CHEWABLE PO PRN (16:35)
[2018-04-18] MEDS ORDERED: ALPRAZolam 0.25 MG TAB PO PRN (16:35)
[2018-04-18 16:56] LABS: Glucose,Whole Blood 127 mg/dL (75-99)
[2018-04-18] MEDS: LACTATED RINGERS 1,000 ML IV SCH (17:06)
--- NOTE | 2018-04-18 19:12 | HP ---
HISTORY AND PHYSICAL DATE OF SERVICE: 04/18/18 PRESENT COMPLAINT: Shaking on the left side. HISTORY OF PRESENTING COMPLAINT: This is a pleasant 57-year-old patient of Dr. García. Chronic stable medical conditions include diabetes, hyperlipidemia, hypertension, osteoarthritis, anxiety, depression, irritable bowel syndrome and kidney stones. The patient presents with episodes of shaking on the left side. The patient's first episode was on March 22 and the second episode was 3 days ago. The patient's left side of the face started rebekah and the left arm started shaking. The patient was well aware of what is going on. This episode lasted for a good 2 minutes. Patient's daughter was present. This did not affect the left leg and symptoms completely resolved after 2 minutes. The left side of the face was actively rebekah doing that period. It may be noted that close to a year ago the patient did have a stroke affecting the right middle cerebral artery area. The patient denies taking any new medications. No head injury, no prior history of seizure activity. The patient admitted for the same. The patient thinks she has some chronic left-sided facial weakness. REVIEW OF SYSTEMS: CONSTITUTIONAL: None. HEENT: As above. RESPIRATORY: None. CARDIOVASCULAR: None. GASTROINTESTINAL: None. GENITOURINARY: None. MUSCULOSKELETAL: Arthritic pain in different joints. DERMATOLOGICAL, HEMATOLOGIC, LYMPHATIC: None. PSYCHIATRY: Anxiety, depression controlled. NEUROLOGICAL: As above. PAST MEDICAL HISTORY: Stroke, diabetes type 2, hypertension, hyperlipidemia, osteoarthritis, anxiety, depression, kidney stones, irritable bowel syndrome. Uterine cancer stage II, status post total hysterectomy with bilateral salpingo- oophorectomy, abscess to the left lower extremity with MRSA in 2011 and chronic kidney disease. PAST SURGICAL HISTORY: Cholecystectomy, hysterectomy, tonsillectomy. HOME MEDICATIONS: 1. Ultram 50 mg q.6 p.r.n. 2. Lamictal 50 mg p.o. q.h.s. 3. Zestoretic 20/12.5 one tablet p.o. daily. 4. Lantus 20 units subcu at bedtime. 5. Lipitor 80 mg q.h.s. 6. Tylenol. 7. Metformin 1000 mg b.i.d. 8. Aspirin 243 mg p.o. daily. 9. Multivitamin. 10.Zestril 20 mg p.o. daily. 11.Pristiq ER 50 mg p.o. daily. 12.Farxiga 5 mg p.o. daily. ALLERGIES: None. PHYSICAL EXAMINATION: Vital signs on presentation: Temperature 98.3, pulse 80, respiratory 20, blood pressure 144/73, pulse ox 99% on room air. GENERAL APPEARANCE: BMI 35.3, sitting up, comfortable. EYES: Pupils equal. Conjunctivae normal. HEENT: External appearance of nose and ears normal. Oral cavity normal. NECK: JVD not raised. Mass not palpable. RESPIRATORY: Effort, lungs are clear. CARDIOVASCULAR: First and second sounds, no edema. ABDOMEN: Soft, nontender. Liver and spleen not palpable. LYMPHATIC: No lymph node palpable in neck or axillae. PSYCHIATRY: Alert and oriented x3. Mood and affect normal. NEUROLOGICAL: Pupils equal. Slight flattening of the left nasolabial fold. Power and sensation grossly intact. INVESTIGATIONS: White count 18, hemoglobin 14.1, potassium 4.6, BUN 35, creatinine 1.50. Patient's creatinine was 1.29 on February 09 and last March, the creatinine was normal at 0.58. Also patient's brain MRI on March of last year did show an acute infarct involving the right middle cerebral artery with additional globular foci noted within the high right frontal parietal lobe. The patient did have a EEG at that time that showed diffuse findings and some focal slowing over the right hemisphere consistent with destructive lesion. CT scan of the brain from today showing encephalomalacia in distribution right middle cerebral artery. ASSESSMENT: 1. This is a patient who has had 2 episodes of left facial contracture episode, left arm shaking. First episode on March 22, another one being 3 days ago. Symptoms lasting for 2 minutes. This is corresponding to the area of encephalomalacia in the right middle cerebral artery infarct area and this is her focal epilepsy. 2. Diabetes mellitus type 2 on oral hypoglycemic. 3. Hyperlipidemia. 4. Essential hypertension. 5. Primary osteoarthritis. 6. Irritable bowel syndrome. 7. Anxiety, depression, not otherwise specified. 8. Kidney stones. 9. Renal failure, possibly chronic component. It may be noted that the patient is both on Zestoretic and lisinopril separately. PLAN: Neurology was consulted. Neuro checks will be done. Home medications will be continued. Will discontinue patient's Zestoretic and patient's lisinopril. Will do a renal ultrasound. The patient's UA does not show any protein; hence, this could all be an acute component. The patient also will be hydrated. Care was discussed in detail with the patient. For antiseizure medications, will let Neurology decide the same. SAMIL / IJN: [id number] /
[2018-04-18 20:59] LABS: Glucose,Whole Blood 191 mg/dL (75-99)
[2018-04-18] MEDS ORDERED: MELATONIN 3 MG TABLET PO PRN (21:00)
[2018-04-18] MEDS: ATORVASTATIN 80 MG TAB PO SCH (21:08)
[2018-04-18] MEDS: INSULIN DETEMIR 100 UNIT/ML 10 ML VIAL SQ SCH (21:08)
[2018-04-18] MEDS: lamoTRIgine 25 MG TAB PO SCH (21:09)
[2018-04-18] MEDS: traMADol 50 MG TAB PO PRN (22:54)
[2018-04-19] MEDS: INSULIN ASPART 100 UNIT/ML 1 ML 10 ML VIAL SQ SCH ×4 (06:10→21:20)
[2018-04-19] MEDS: LACTATED RINGERS 1,000 ML IV SCH ×3 (06:10→16:44)
[2018-04-19 06:24] LABS: Glucose,Whole Blood 77 mg/dL (75-99)
[2018-04-19 06:48] LABS: Calcium 10.2 mg/dL (8.4-10.2); Potassium 4.5 mmol/L (3.5-5.1)
[2018-04-19] MEDS: Dapagliflozin Propanediol [Farxiga] 5 MG PO SCH (08:20)
[2018-04-19] MEDS: ASPIRIN 81 MG PO SCH (08:20)
[2018-04-19] MEDS: FENOFIBRATE 54 MG TAB PO SCH (08:21)
[2018-04-19] MEDS: DESVENLAFAXINE SUCCINATE 50 MG TAB.ER.24H PO SCH (08:21)
[2018-04-19] MEDS: metFORMIN 500 MG TAB PO SCH ×2 (08:21→21:22)
[2018-04-19 10:05] VITALS: BMI 34.3
--- NOTE | 2018-04-19 10:31 | US ---
EXAMINATION TYPE: US renals and bladder DATE OF EXAM: 04/19/2018 COMPARISON: CT abdomen March 04, 2018 CLINICAL HISTORY: renal failure. EXAM MEASUREMENTS: Right Kidney: 10.5 x 5.1 x 5.0 cm Left Kidney: 11.5 x 5.8 x 5.2 cm Patient of large body habitus, limiting exam Right Kidney: scattered echogenic foci, (stones noted on CT) Left Kidney: moderate hydro, scattered echogenic foci, (stones noted on CT) Bladder: empty, not visualized Bilateral Jets seen: No There is no evidence for hydronephrosis at this point in time. No nephrolithiasis is seen. No mik s are identified. The urinary bladder is suboptimally evaluated due to poor distension. No intralum inal masses or abnormal wall thickening. IMPRESSION: New moderate left-sided hydronephrosis. Suspect worsening obstruction related to known left ureter ca lculi. Urology consult advised. Small bilateral renal calculi are seen better on CT versus ultrasound .
[2018-04-19] MEDS: MULTIVITAMINS, THERA 1 EACH TAB PO SCH (11:37)
[2018-04-19 11:40] LABS: Glucose,Whole Blood 112 mg/dL (75-99)
[2018-04-19 16:37] LABS: Glucose,Whole Blood 108 mg/dL (75-99)
--- NOTE | 2018-04-19 18:43 | EEG ---
ELECTROENCEPHALOGRAM REPORT DATE OF SERVICE: 04/19/2018. REASON FOR TESTING: Transient ischemic attack. DESCRIPTION OF THE PROCEDURE: This EEG was performed using a 21 channel digital electroencephalograph, following international 10-20 system. DESCRIPTION OF THE RECORDING: From the beginning of the tracing, and with patient's eyes closed, the background rhythm was mostly consisting of 9 Hz alpha frequency in the posterior occipital leads. No obvious asymmetry is seen. Photic stimulation was performed with a good driving response seen. No pathological waves were elicited. Hyperventilation was not performed. Occasional movement and muscle artifacts are seen. The patient remains awake throughout the tracing. No epileptiform discharges were seen. Her EKG lead showed a regular rate and rhythm. INTERPRETATION: This awake EEG can be considered within normal limits. There was no asymmetry seen. No epileptiform discharges were noticed. The absence of epileptiform discharges does not rule out the diagnosis of epilepsy; therefore clinical correlation is recommended. MMBARAKL / IJS[place]: [id number] /
--- NOTE | 2018-04-19 20:07 | P.PN ---
Subjective Progress Note Date: 04/19/18 Principal diagnosis: TIA Neurology is following on a 57 year old female for mentla status changes consistent with TIA and a possible concurrent etiology of seizure. Patient has prior right MCA infarct in 03/2017. Patient has had intermittent occurrences of TIA like symptoms with unilaterla neurological changes lasting minutes to hours. Although these are consistent with TIA, given other aspects of the occurrences these could also be consistent with seizure from foci affiliated with her prior infarct. Patient's EEG was normal and her CT Brain noted no acute process. The patient has completely returned to baseline per nursing and the patient. Patient is AOx3 Ambulating in the room in no acute distress. Objective - Vital Signs Vital signs: Vital Signs Temp 98 F 04/19/18 16:00 Pulse 65 04/19/18 16:00 Resp 18 04/19/18 16:00 BP 128/66 04/19/18 16:00 Pulse Ox 97 04/19/18 16:00 Intake & Output 04/19/18 04/19/18 04/20/18 06:59 18:59 06:59 Intake Total 960 Balance 960 Weight 93.6 kg 93.6 kg Intake: Oral 960 Other: Voiding Method Toilet Toilet # Voids 1 3 - Exam General appearance: Alert & oriented x3, no apparent distress. Head: Atraumatic, normocephalic, normal inspection Eyes: Well appearance, PERRLA, EOMI. Absent scleral icterus, conjunctival injection, nystagmus, periorbital swelling. Ear, nose and throat: Normal exam, mucous membranes moist Neck: Normal inspection, absent tenderness, lymphadenopathy. Respiratory: No increased work of breathing Cardiovascular: Regular rate, rhythm GI/abdominal: No guarding Extremities: Full range of motion, normal capillary refill, no tenderness, pedal edema joint swelling, calf tenderness. Neurological: cranial nerves II through XII intact no lateralizing weakness, noted slight left perioral drooping believed to be previous residual from 2017 infarct. no seizure activity noted on physical exam no pronator drift and no nystagmus. Left lower extremity: 4/5 Right lower extremity: 4/5 Left upper extremity: 4/5 Right upper extremity:4/5 Sensation: Left lower extremity: normal Right lower extremity: normal Left upper extremity: normal Right upper extremity:normal Psychological: Mood and Affect appropriate for setting - Labs CBC & Chem 7: 04/17/18 17:44 04/19/18 05:54 Labs: Abnormal Lab Results - Last 24 Hours (Table) 04/18/18 04/18/18 04/19/18 Range/Units 14:39 20:57 05:54 BUN 25 H (7-17) mg/dL Creatinine 1.40 H (0.52-1.04) mg/dL POC Glucose (mg/dL) 191 H (75-99) mg/dL Homocysteine 17.64 H (4.00-14.00) umol/L 04/19/18 04/19/18 Range/Units 11:22 16:26 BUN (7-17) mg/dL Creatinine (0.52-1.04) mg/dL POC Glucose (mg/dL) 112 H 108 H (75-99) mg/dL Homocysteine (4.00-14.00) umol/L Assessment and Plan (1) Transient cerebral ischemia Narrative/Plan: Patient's presentation and symptoms are more likely consistent with TIA versus seizure. however given the patient's previous CVA history, seizure could be affiliated with foci from previous infarct. Patient's EEG was normal CT brain was unremarkable. Patient has remained asymptomatic since inpatient. Further diagnostic workup can be performed in the outpatient setting including video EEG monitoring and MRI of the brain for further verification of underlying etiology. Patient is stable at this time continue Lofibra (Tricor), Lipitor and aspirin in the outpatient setting as prescribed. Current Visit: Yes Status: Acute Code(s): G45.9 - TRANSIENT CEREBRAL ISCHEMIC ATTACK, UNSPECIFIED SNOMED Code(s): 633939934 (2) Diabetes mellitus Narrative/Plan: patient has significant history of intermittently managed type 2 diabetes. Patient does possibly have secondary sequela of diabetes consistent with diabetic retinopathy. Continue to control blood glucose within normal parameters advised patient to obtain annual exam from [facility] upon discharge for review at follow-up office visit. Defer to primary team for management Current Visit: No Status: Acute Code(s): E11.9 - TYPE 2 DIABETES MELLITUS WITHOUT COMPLICATIONS SNOMED Code(s): 47819362 (3) Hyperlipidemia Narrative/Plan: see notes in #1 above Current Visit: No Status: Acute Code(s): E78.5 - HYPERLIPIDEMIA, UNSPECIFIED SNOMED Code(s): 66480875 (4) Hypertension Narrative/Plan: management per primary team. Current Visit: No Status: Acute Code(s): I10 - ESSENTIAL (PRIMARY) HYPERTENSION SNOMED Code(s): 92238764 Plan: Status: Neurology will visit patient for discharge from a neurological standpoint. Further workup will continue outpatient including possible video EEG and MRI of the brain at a later date. Patient to follow up in our office in 10-14 days. Contact our office with any questions I have discussed the plan of care with the physician prior to implementation and he agrees with the plan as implemented.
[2018-04-19 21:17] LABS: Glucose,Whole Blood 134 mg/dL (75-99)
[2018-04-19] MEDS: lamoTRIgine 25 MG TAB PO SCH (21:22)
[2018-04-19] MEDS: ATORVASTATIN 80 MG TAB PO SCH (21:22)
[2018-04-19] MEDS: INSULIN DETEMIR 100 UNIT/ML 10 ML VIAL SQ SCH (21:22)
--- NOTE | 2018-04-19 22:25 | PN ---
PROGRESS NOTE DATE OF SERVICE: 04/19/2018 PRESENTING COMPLAINT: Shaking on the left side. INTERVAL HISTORY: This patient presented with two episodes of shaking on the left arm, left face grimacing, felt to be possibly focal seizure from the right MCA territory and/or a TIA. No further episodes. EEG did not show any seizure activity. The patient abdominal ultrasound showing left-sided hydronephrosis. Urology is being consulted. Also showing a uretic stone. REVIEW OF SYSTEMS: Done for constitutional, cardiovascular, GI, pulmonary and relevant findings as above. CURRENT MEDICATIONS: Reviewed. PHYSICAL EXAMINATION: VITAL SIGNS: Temperature 98, pulse 55, respiratory 18, blood pressure 120/66, pulse ox 97% on room air. GENERAL APPEARANCE: Lying in bed comfortable. EYES: Pupils equal. Conjunctivae normal. HEENT: External appearance of nose and ears normal. Oral cavity normal. NECK: JVD not raised. Mass not palpable. RESPIRATORY: Effort normal. LUNGS are clear. CARDIOVASCULAR: 1st and 2nd sounds normal. No edema. ABDOMEN: Soft, nontender. Liver and spleen not palpable. PSYCHIATRY: Alert and oriented x3. Mood and affect normal. INVESTIGATIONS: BUN 25, creatinine 1.40. Renal ultrasound new moderate left hydronephrosis with left ureter calculi. ASSESSMENT: 1. Possible TIA versus left-sided focal seizure from an area of stroke on the right side and right MCA territory. 2. Right-sided encephalomalacia from a prior right middle cerebral artery stroke. 3. Diabetes mellitus type 2 on oral hypoglycemic. 4. Hyperlipidemia. 5. Essential hypertension. 6. Primary osteoarthritis. 7. Irritable bowel syndrome. 8. Anxiety and depression, not otherwise specified. 9. Bilateral kidney stones. 10.Renal failure, possibly chronic component. The patient was on Zestoretic and lisinopril. 11.New left-sided hydronephrosis with left ureteral stone. PLAN: At this point, urology will be consulted. Per Neurology, no need for antiseizure medications at present time. Will continue to hydrate the patient. Check labs in the morning. MMODL / IJN: [id number] /
[2018-04-19] MEDS: traMADol 50 MG TAB PO PRN (23:57)
[2018-04-20] MEDS: LACTATED RINGERS 1,000 ML IV SCH ×2 (05:50→15:02)
[2018-04-20 07:05] LABS: Glucose,Whole Blood 94 mg/dL (75-99)
[2018-04-20] MEDS: INSULIN ASPART 100 UNIT/ML 1 ML 10 ML VIAL SQ SCH ×4 (07:49→20:17)
[2018-04-20 08:23] LABS: Calcium 9.3 mg/dL (8.4-10.2); Potassium 4.4 mmol/L (3.5-5.1)
[2018-04-20] MEDS: Dapagliflozin Propanediol [Farxiga] 5 MG PO SCH (08:24)
[2018-04-20] MEDS: ASPIRIN 81 MG PO SCH (08:26)
[2018-04-20] MEDS: DESVENLAFAXINE SUCCINATE 50 MG TAB.ER.24H PO SCH (08:27)
[2018-04-20] MEDS: FENOFIBRATE 54 MG TAB PO SCH (08:27)
[2018-04-20 11:02] LABS: Glucose,Whole Blood 120 mg/dL (75-99)
[2018-04-20] MEDS: MULTIVITAMINS, THERA 1 EACH TAB PO SCH (13:13)
[2018-04-20] MEDS: metFORMIN 500 MG TAB PO SCH ×2 (13:13→21:33)
--- NOTE | 2018-04-20 15:58 | P.GSCN ---
History of Present Illness Consult date: 04/20/18 History of present illness: This 57-year-old female with significant vascular disease, previous stroke apparently presented with shaking on her left side. It is felt that she perhaps had a transient ischemic regular tachycardia. She is found to have a mildly elevated creatinine 1.29. She had a renal ultrasound which showed some hydronephrosis for this reason were asked see the patient. In reviewing the old chart she had a computed tomography scan of the abdomen back in February identifying midureteral stones. This was identified because he had some renal insufficiency. This led to the CAT scan with identification of the stone. She has a history of stones. She had an appointment to go to [facility] in [place] for this in the next week. She is relatively asymptomatic but there is moderate hydronephrosis and she does wish to have this treated. Review of Systems - Constitutional Reports chronic headaches, Reports chronic pain - Neurological Reports seizures Past Medical History Past Medical History: Cancer, Chest Pain / Angina, CVA/TIA, Diabetes Mellitus, Hyperlipidemia, Hypertension, Osteoarthritis (OA), Pneumonia, Renal Disease Additional Past Medical History / Comment(s): uterine cancer stage II status post total hysterectomy with bilateral salpingo-oophorectomy. Treated at [facility]. No chemotherapy or radiation therapy. IBS, diverticulitis, BRONCHNITIS, history of abscess to the left lower extremity with MRSA in 2011. CELLULITIS RT LOWER, kidney skinny, pt. states her kidney ouput is only 45% History of Any Multi-Drug Resistant Organisms: MRSA Year Discovered:: 2011 MDRO Source:: left leg Past Surgical History: Cholecystectomy, Hysterectomy, Tonsillectomy Past Anesthesia/Blood Transfusion Reactions: No Reported Reaction Smoking Status: Former smoker - Past Family History Father Family Medical History: Congestive Heart Failure (CHF), Diabetes Mellitus, Dialysis, Hyperlipidemia, Hypertension, Renal Disease Additional Family Medical History / Comment(s): AT AGE 64- Mother Family Medical History: CVA/TIA, Diabetes Mellitus, Hyperlipidemia, Hypertension , Myocardial Infarction ([place]) Additional Family Medical History / Comment(s): MOM AT AGE 74. Medications and Allergies Home Medications Medication Instructions Recorded Confirmed Type RX: Aspirin EC [Ecotrin Low Dose] 243 mg PO DAILY 05/17/14 04/17/18 History RX: Desvenlafaxine Succinate 50 mg PO DAILY 05/17/14 04/17/18 History [Pristiq ER] RX: Lisinopril [Zestril] 20 mg PO DAILY 05/17/14 04/17/18 History RX: Multivitamins, Thera 1 tab PO DAILY 05/17/14 04/17/18 History [Multivitamin (formulary)] RX: Dapagliflozin Propanediol 5 mg PO DAILY 04/13/17 04/17/18 History [Farxiga] RX: Insulin Glargine [Lantus] 40 unit SQ HS 04/13/17 04/17/18 History RX: lamoTRIgine [LaMICtal] 50 mg PO HS 04/13/17 04/17/18 History RX: traMADol HCl [Ultram] 50 mg PO Q6H PRN #20 04/16/17 04/17/18 Rx Acetaminophen Tab [Tylenol Tab] 500 mg PO Q6H PRN 04/17/18 04/17/18 History Atorvastatin [Lipitor] 80 mg PO HS 04/17/18 04/17/18 History Lisinopril-Hctz 20-12.5 mg 1 tab PO DAILY 04/17/18 04/17/18 History [Zestoretic 20-12.5] RX: metFORMIN HCL 1,000 mg PO BID 04/17/18 04/17/18 History Allergies Allergy/AdvReac Type Severity Reaction Status Date / Time No Known Allergies Allergy Verified 04/17/18 18:01 Surgical - Exam Vital Signs Temp Pulse Resp BP Pulse Ox 98.3 F 80 20 144/73 99 04/17/18 17:23 04/17/18 17:23 04/17/18 17:23 04/17/18 17:23 04/17/18 17:23 - General well developed, well nourished, no distress - Eyes PERRL - ENT normal mucosa - Neck no masses - Respiratory normal expansion, normal respiratory effort - Cardiovascular Rhythm: regular - Abdomen Abdomen: soft, non tender Results - Labs 04/17/18 17:44 04/20/18 07:02 Abnormal Lab Results - Last 24 Hours (Table) 04/19/18 04/19/18 04/20/18 Range/Units 16:26 21:06 07:02 BUN 20 H (7-17) mg/dL Creatinine 1.28 H (0.52-1.04) mg/dL POC Glucose (mg/dL) 108 H 134 H (75-99) mg/dL 04/20/18 Range/Units 11:00 BUN (7-17) mg/dL Creatinine (0.52-1.04) mg/dL POC Glucose (mg/dL) 120 H (75-99) mg/dL Diabetes panel 04/20/18 Range/Units 07:02 Sodium 141 (137-145) mmol/L Potassium 4.4 (3.5-5.1) mmol/L Chloride 107 (98-107) mmol/L Carbon Dioxide 26 (22-30) mmol/L BUN 20 H (7-17) mg/dL Creatinine 1.28 H (0.52-1.04) mg/dL Glucose 88 (74-99) mg/dL Calcium 9.3 (8.4-10.2) mg/dL Calcium panel 04/20/18 Range/Units 07:02 Calcium 9.3 (8.4-10.2) mg/dL Pituitary panel 04/20/18 Range/Units 07:02 Sodium 141 (137-145) mmol/L Potassium 4.4 (3.5-5.1) mmol/L Chloride 107 (98-107) mmol/L Carbon Dioxide 26 (22-30) mmol/L BUN 20 H (7-17) mg/dL Creatinine 1.28 H (0.52-1.04) mg/dL Glucose 88 (74-99) mg/dL Calcium 9.3 (8.4-10.2) mg/dL Adrenal panel 04/20/18 Range/Units 07:02 Sodium 141 (137-145) mmol/L Potassium 4.4 (3.5-5.1) mmol/L Chloride 107 (98-107) mmol/L Carbon Dioxide 26 (22-30) mmol/L BUN 20 H (7-17) mg/dL Creatinine 1.28 H (0.52-1.04) mg/dL Glucose 88 (74-99) mg/dL Calcium 9.3 (8.4-10.2) mg/dL - Imaging CT scan - abdomen: report reviewed, image reviewed CT scan - pelvis: report reviewed, image reviewed US - abdomen: report reviewed, image reviewed Assessment and Plan Assessment: Impression: Mid left ureteral calculus with hydronephrosis and renal insufficiency. History of seizures. History of stroke. Recommendations the patient would benefit from a left ureteroscopy laser lithotripsy. We did discuss shockwave lithotripsy. The ureteroscopy can be done while in the hospital. I'll set her up for tomorrow. He consents to this.
[2018-04-20 17:10] LABS: Glucose,Whole Blood 132 mg/dL (75-99)
[2018-04-20] MEDS: PANTOPRAZOLE 40 MG TABLET PO SCH (17:30)
[2018-04-20 20:03] LABS: Glucose,Whole Blood 126 mg/dL (75-99)
[2018-04-20] MEDS: lamoTRIgine 25 MG TAB PO SCH (21:32)
[2018-04-20] MEDS: INSULIN DETEMIR 100 UNIT/ML 10 ML VIAL SQ SCH (21:32)
[2018-04-20] MEDS: ATORVASTATIN 80 MG TAB PO SCH (21:33)
[2018-04-20] MEDS: traMADol 50 MG TAB PO PRN (22:47)
--- NOTE | 2018-04-21 04:41 | PN ---
PROGRESS NOTE DATE OF SERVICE: 04/20/2018 PRESENTING COMPLAINT: Shaking on the left side. INTERVAL HISTORY: Patient presented with 2 episodes of shaking of the left arm, left face, grimacing, felt to be possible focal seizures and/or possible TIA. No further episodes per Neurology. No other medications were added. The patient also has left-sided hydronephrosis, was supposed to go down to see an urologist on the 28 of April, but now she is okay to get it done by a local urologist, Dr. Sal is on. The patient also has a left ureteral stone. No abdominal pain. REVIEW OF SYSTEMS: Review of systems done for constitutional, cardiovascular, GI, pulmonary, neurological; relevant findings as above. CURRENT MEDICATIONS: Current medications are reviewed. PHYSICAL EXAMINATION: On examination, temperature 97.5, pulse 63, respiratory 18, blood pressure 117/65, pulse ox 98% on room air. GENERAL APPEARANCE: Sitting in bed, comfortable. EYES: Pupils equal. Conjunctivae normal. HENT: External appearance of nose and ears normal. Oral cavity normal. NECK: JVD not raised. Mass not palpable. RESPIRATORY: Effort normal. Lungs are clear. CARDIOVASCULAR: First and second sounds normal. No edema. ABDOMEN: Soft, nontender. Liver and spleen not palpable. PSYCHIATRY: Alert and oriented x3. Mood and affect normal. INVESTIGATIONS: BUN 20, creatinine 1.28. ASSESSMENT: 1. Possible transient ischemic attack versus left-sided focal seizure from an area of stroke on the right side. 2. Right-sided encephalomalacia from prior stroke in the middle cerebral artery area. 3. Diabetes mellitus type 2 on oral hypoglycemic. 4. Hyperlipidemia. 5. Essential hypertension. 6. Primary osteoarthritis. 7. Irritable bowel syndrome. 8. Anxiety and depression, not otherwise specified. 9. Bilateral kidney stones. 10.Renal failure, possibly a chronic component. The patient's Zestoretic and lisinopril were all discontinued. 11.New left-sided hydronephrosis with left ureteral stone. PLAN: Spoke to Dr. Sal. He is okay to proceed with ureteroscopy with stone extraction tomorrow. Also talked to the patient. She agreed to get the procedure done rather than driving all the way down to [address] in a week's time. We will continue with hydration. MMODL / IJN: [id number] /
[2018-04-21 06:56] LABS: Glucose,Whole Blood 72 mg/dL (75-99)
[2018-04-21] MEDS: LACTATED RINGERS 1,000 ML IV SCH ×3 (07:59→13:56)
[2018-04-21] MEDS: INSULIN ASPART 100 UNIT/ML 1 ML 10 ML VIAL SQ SCH ×2 (08:00→15:17)
[2018-04-21 08:22] LABS: Calcium 9.5 mg/dL (8.4-10.2); Potassium 4.5 mmol/L (3.5-5.1)
[2018-04-21] MEDS ORDERED: IV FLUID CONTINUATION 1,000 ML IV ONE (10:58)
[2018-04-21 11:13] LABS: Glucose,Whole Blood 93 mg/dL (75-99)
[2018-04-21] MEDS ORDERED: PROPOFOL 10 MG/ML 20 ML VIAL IV ONE (11:29)
[2018-04-21] MEDS ORDERED: SUCCINYLCHOLINE CHLORIDE 100 MG/5 ML SYR IV ONE (11:29)
[2018-04-21] MEDS ORDERED: fentaNYL (PF) 50 MCG/ML 2 ML AMP ONE (11:29)
[2018-04-21] MEDS ORDERED: MIDAZOLAM 2 MG/2 ML VIAL ONE (11:29)
[2018-04-21] MEDS ORDERED: HYDROmorphone (PF) 1 MG/ML ONE (11:29)
[2018-04-21] MEDS ORDERED: SODIUM CHLORIDE 0.9% 50 ML with ceFAZolin 2,000 MG IV ONE ×2 (11:51)
--- NOTE | 2018-04-21 12:38 | P.OP ---
Date of Procedure: 04/21/18 Preoperative Diagnosis: Left ureteral calculi, large Postoperative Diagnosis: Same Procedure(s) Performed: Cystoscopy left ureteroscopy with laser lithotripsy placement of 6 x 24 stent Anesthesia: TEJASA Surgeon: Temo Sal Estimated Blood Loss (ml): 5 Pathology: other (Stone) Condition: stable Disposition: PACU Indications for Procedure: The patient is 57. She came in with neurologic problems that are apparently due to the TIA. That resolved. She had an ultrasound identifying hydronephrosis. She had a CAT scan a month ago identifying several midureteral stones with significant obstruction. She wishes to have these removed. She will come for ureteroscopy Description of Procedure: The patient is brought to the operating suite. She is given general anesthesia. She's placed lithotomy position with sterile prep and drape. Cystoscopy Foroblique lens and 22-Croatian sheath identifies a normal urethra ureteral orifice and bladder mucosa. The ureteral orifice is dilated to 10- Croatian with the cone-tipped catheter. I passed a 7-Croatian mini ureteroscope up to the most distal stone. There are 3 stones each 78 mm in the mid proximal ureter. With the laser probe I break the stone into tiny pieces to allow passage of the scope to the mid stone. I use the 400 probe and 5 W of energy. I then pass an 035 wire long the middle and proximal stone. I then reintroduced the scope alongside the wire. I break the middle stone into tiny pieces and flushes out. The proximal stone floats back up into the renal pelvis. I then removed the ureteroscope over the wires passed a 6 x 24 double- J catheter. Since she has other stones in the kidney we will consider a shockwave lithotripsy at a later date to the renal stones . Bladder is drained the patient's awake and returned recovery in good condition. Stones are sent to pathology. She tolerated procedure well. Blood loss is minimal.
[2018-04-21 12:55] VITALS: TEMP 97.3
[2018-04-21 12:55] LABS: Glucose,Whole Blood 104 mg/dL (75-99)
--- NOTE | 2018-04-21 13:16 | FL ---
EXAMINATION TYPE: FL guidance operating room DATE OF EXAM: 04/21/2018 CLINICAL HISTORY: Cystography 4 left-sided nephrolithiasis. TECHNIQUE: Fluoroscopy. COMPARISON: None. FINDINGS/IMPRESSION: Fluoroscopic guidance was provided during procedure performed by Dr. Jacobson. A total of 1 minute and 5 seconds of fluoroscopic time was utilized during the procedure and 2 spot i mages was acquired during cystography regarding left-sided nephrolithiasis.
[2018-04-21 13:29] VITALS: RESP 14
[2018-04-21 15:05] VITALS: BP 137/67; PULSE 58
[2018-04-21] MEDS: Dapagliflozin Propanediol [Farxiga] 5 MG PO SCH (15:16)
[2018-04-21] MEDS: PANTOPRAZOLE 40 MG TABLET PO SCH (15:16)
[2018-04-21] MEDS: metFORMIN 500 MG TAB PO SCH (15:16)
[2018-04-21] MEDS: MULTIVITAMINS, THERA 1 EACH TAB PO SCH (15:18)
[2018-04-21] MEDS: FENOFIBRATE 54 MG TAB PO SCH (16:15)
[2018-04-21] MEDS: ASPIRIN 81 MG PO SCH (16:16)
[2018-04-21] MEDS: DESVENLAFAXINE SUCCINATE 50 MG TAB.ER.24H PO SCH (16:16)
--- NOTE | 2018-04-21 22:36 | DS ---
DISCHARGE SUMMARY DATE OF ADMISSION: 04/17/2018. DATE OF DISCHARGE: 04/21/2018 FINAL DIAGNOSES: 1. Focal seizure from area of stroke on the right middle cerebral artery area from an area of encephalomalacia. 2. Possible transient ischemic attack. 3. Diabetes mellitus Type 2 on oral hypoglycemics. 4. Hyperlipidemia. 5. Essential hypertension. 6. Primary osteoarthritis. 7. Irritable bowel syndrome. 8. Anxiety and depression, not otherwise specified. 9. Bilateral kidney stones. 10.New left-sided hydronephrosis with left ureteral stone. 11.Possibly chronic kidney disease from nephrolithiasis, probably stage II. 12.Acute renal failure probably drug induced. HOSPITAL COURSE: This is a patient with a stroke in the right MCA over a year ago. The area of encephalomalacia presented with a jerking sensation of the left arm and left face twitching, felt to be focal seizure from the area of encephalomalacia. Also felt to be a possible TIA. No further episodes were had. The patient's EEG was normal. CT scan of the brain showed chronic changes and encephalomalacia. Renal ultrasound did show left hydronephrosis. The patient was due to see a asphalt tamper down on [address] but decided to have intervention done here by Dr. Sal today went inside did a ureteroscopy and stones extracted. The patient has no abdominal pain. The patient's creatinine has come down from 1.5 down to 1.21. The patient's JONY inhibitor and diuretics were held. I did tell the patient per Neurology is felt to be TIA and per their impression, treating the patient for any focal seizures. EXAM: Lungs are clear cardiovascular. 1st and second sounds normal. ABDOMEN: Soft, nontender. CONSULTATIONS: 1. Dr. Sal from Urology. 2. Dr. Mata from Neurology. DISCHARGE MEDICATIONS: 1. Aspirin 81 mg a day. 2. Pristiq ER 50 mg a day. 3. Multivitamin 1 tablet p.o. daily. 4. Farxiga 5 mg a day. 5. Lantus 40 units subcu q.h.s. 6. Lamictal 50 mg q.h.s. 7. Ultram 50 mg every 6 hours p.r.n. 8. Tylenol 500 mg q.6h p.r.n. 9. Lipitor 80 mg q.h.s. 10.Metformin 1000 mg p.o. b.i.d. FOLLOWUP: Follow up with Dr. García on April 27, 2018, Dr. Mata in 4 weeks, Dr. Bennett Sal on May 07, 2018. Copy to Dr. García's. RICK / ION: [id number] /
== END 2018-04-21 17:30 | disposition home or self-care (01) | DRG 988 ==
LOC: EC 17:20 → 6SEL 20:44 → 5MS5E 04-19 21:56
PROVIDERS: ADMIT Hospitalist; ATTEND Hospitalist
PROC: 0TC78ZZ Extirpation of Matter from Left Ureter, Via Natural or Artificial Opening Endoscopic (ICD-10-PCS; principal; 2018-04-21 08:00)
PROC: 0T778DZ Dilation of Left Ureter with Intraluminal Device, Via Natural or Artificial Opening Endoscopic (ICD-10-PCS; 2018-04-21 08:00)
DX: G40.109 Localization-related (focal) (partial) symptomatic epilepsy and epileptic syndromes with simple partial seizures, not intractable, without status epilepticus (principal); G45.9 Transient cerebral ischemic attack, unspecified; N13.2 Hydronephrosis with renal and ureteral calculous obstruction; N17.9 Acute kidney failure, unspecified; E11.39 Type 2 diabetes mellitus with other diabetic ophthalmic complication; E78.1 Pure hyperglyceridemia; E78.5 Hyperlipidemia, unspecified; F32.9 Major depressive disorder, single episode, unspecified; F41.9 Anxiety disorder, unspecified; G93.89 Other specified disorders of brain; K58.9 Irritable bowel syndrome, unspecified; M19.91 Primary osteoarthritis, unspecified site; I12.9 Hypertensive chronic kidney disease with stage 1 through stage 4 chronic kidney disease, or unspecified chronic kidney disease; T50.905A Adverse effect of unspecified drugs, medicaments and biological substances, initial encounter; N18.2 Chronic kidney disease, stage 2 (mild); K57.90 Diverticulosis of intestine, part unspecified, without perforation or abscess without bleeding; I69.992 Facial weakness following unspecified cerebrovascular disease; Z79.4 Long term (current) use of insulin; Z79.82 Long term (current) use of aspirin; Z79.899 Other long term (current) drug therapy; Z90.710 Acquired absence of both cervix and uterus; Z87.891 Personal history of nicotine dependence; Z87.442 Personal history of urinary calculi; Z86.14 Personal history of Methicillin resistant Staphylococcus aureus infection; Z85.42 Personal history of malignant neoplasm of other parts of uterus; Z90.79 Acquired absence of other genital organ(s); Z90.722 Acquired absence of ovaries, bilateral; Z87.01 Personal history of pneumonia (recurrent); Z90.49 Acquired absence of other specified parts of digestive tract; Z82.49 Family history of ischemic heart disease and other diseases of the circulatory system; Z83.3 Family history of diabetes mellitus; Z84.89 Family history of other specified conditions; Y92.9 Unspecified place or not applicable
CPT/HCPCS: 36415; 70450; 71046; 76770; 80048; 80053; 80061; 81001; 82365; 82550; 82553; 83090; 84484; 85025; 85610; 85730; 93005; 95816; 99285

== ENCOUNTER → 2018-05-27 | Outpatient (CLI) | payer OTHER ==
[2018-05-27 14:29] LABS: Basophils % (A) 1 %; Eosinophils # (A) 0.2 k/uL (0-0.7); Eosinophils % (A) 4 %; HCT 41.2 % (34.0-46.0); HGB 13.2 gm/dL (11.4-16.0); Lymphocytes # (A) 2.2 k/uL (1.0-4.8); Lymphocytes % (A) 35 %; MCH 29.1 pg (25.0-35.0); MCV 90.8 fL (80.0-100.0); Mean Platelet Volume 6.8; Monocytes # (A) 0.4 k/uL (0-1.0); Monocytes % (A) 6 %; Neutrophils # (A) 3.2 k/uL (1.3-7.7); Neutrophils % (A) 52 %; Platelet Count 278 k/uL (150-450); RBC 4.53 m/uL (3.80-5.40); RDW 12.8 % (11.5-15.5); WBC 6.2 k/uL (3.8-10.6)
[2018-05-27 15:05] LABS: Appearance,Urine Cloudy (Clear); Bacteria,Urine Rare /hpf; Bilirubin,Urine Negative (Negative); Blood,Urine Negative (Negative); Color,Urine Light Yellow; Glucose,Urine (UA) Negative (Negative); Ketones,Urine Negative (Negative); Leukocyte Esterase,Urine Negative (Negative); Mucus,Urine Rare /hpf; Nitrite,Urine Negative (Negative); PH, Urine 5.5 (5.0-8.0); Protein,Urine Negative (Negative); RBC,Urine 2 /hpf (0-5); Squamous Epithelial Cell,Urine 5 /hpf (0-4); Urobilinogen,Urine <2.0 mg/dL (<2.0); WBC,Urine 3 /hpf (0-5)
[2018-05-27 15:09] LABS: Albumin 3.7 g/dL (3.5-5.0); Calcium 9.4 mg/dL (8.4-10.2); Magnesium 1.5 mg/dL (1.6-2.3); Phosphorus 3.5 mg/dL (2.5-4.5); Potassium 4.7 mmol/L (3.5-5.1); Uric Acid 4.7 mg/dL (3.7-7.4)
[2018-05-27 18:55] LABS: Iron Saturation 16.72 (12.00-45.00); Protein, Total 6.7 g/dL (6.2-8.2)
[2018-05-27 19:11] LABS: Vitamin D 25 Hydroxy 11.2 ng/mL (30.0-100.0)
[2018-05-27 19:28] LABS: Parathyroid Hormone Intact 61.3 pg/mL (14.0-72.0)
[2018-05-28 09:31] LABS: Albumin 3.85 g/dL (3.80-4.90); Gamma Globulin 0.96 g/dL (0.70-1.50)
== END | disposition home or self-care (01) ==
LOC: LABWHC1 13:55
PROVIDERS: ATTEND Internal Medicine Nephrology
DX: E55.9 Vitamin D deficiency, unspecified (principal); D64.9 Anemia, unspecified; E21.3 Hyperparathyroidism, unspecified; M10.9 Gout, unspecified; N39.0 Urinary tract infection, site not specified; N17.9 Acute kidney failure, unspecified
CPT/HCPCS: 36415; 80048; 81001; 82040; 82306; 82728; 83540; 83550; 83735; 83883; 83970; 84100; 84165; 84550; 85025

== ENCOUNTER 2018-06-10 19:10 | Emergency (ER) | payer OTHER ==
[2018-06-10] MEDS ORDERED: SODIUM CHLORIDE 0.9% 1,000 ML IV STA (19:42)
--- NOTE | 2018-06-10 19:55 | CT ---
EXAMINATION TYPE: CT brain wo con for TPA DATE OF EXAM: 06/10/2018 COMPARISON: 04/17/2018 HISTORY: code stroke. Left sided weakness CT DLP: mGycm Automated exposure control for dose reduction was used. FINDINGS: There is hypodensity in a large area of the right cerebral hemisphere consistent with old right middl e cerebral artery cortical infarct. There is no mass effect nor midline shift. There is no sign of in tracranial hemorrhage. The calvarium is intact. IMPRESSION: OLD RIGHT MIDDLE CEREBRAL ARTERY TEMPORAL LOBE CORTICAL INFARCT. NO CHANGE COMPARED TO LAST EXAM. NO ACUTE INTRACRANIAL ABNORMALITY.
[2018-06-10 20:29] LABS: Basophils % (A) 1 %; Eosinophils # (A) 0.3 k/uL (0-0.7); Eosinophils % (A) 5 %; HCT 37.4 % (34.0-46.0); HGB 12.5 gm/dL (11.4-16.0); Lymphocytes # (A) 2.2 k/uL (1.0-4.8); Lymphocytes % (A) 35 %; MCH 29.4 pg (25.0-35.0); MCHC 33.4 g/dL (31.0-37.0); MCV 87.9 fL (80.0-100.0); Monocytes # (A) 0.5 k/uL (0-1.0); Monocytes % (A) 8 %; Neutrophils # (A) 3.1 k/uL (1.3-7.7); Neutrophils % (A) 50 %; Platelet Count 283 k/uL (150-450); RBC 4.25 m/uL (3.80-5.40); RDW 12.9 % (11.5-15.5); WBC 6.3 k/uL (3.8-10.6)
[2018-06-10 20:37] LABS: Glucose,Whole Blood 181 mg/dL (75-99)
[2018-06-10 20:38] LABS: INR 1.1 (<1.2); Prothrombin Time 10.6 sec (9.0-12.0)
[2018-06-10 20:39] LABS: Partial Thromboplastin Time 22.6 sec (22.0-30.0)
[2018-06-10 20:40] VITALS: TEMP 98
[2018-06-10 20:41] LABS: Albumin 3.6 g/dL (3.5-5.0); Calcium 9.4 mg/dL (8.4-10.2); Potassium 4.1 mmol/L (3.5-5.1); Total Bilirubin 0.3 mg/dL (0.2-1.3); Total Protein 6.4 g/dL (6.3-8.2)
--- NOTE | 2018-06-10 20:57 | ED ---
General Adult HPI - General Chief complaint: Neuro Symptoms/Deficit Stated complaint: left side facial drooping Time Seen by Provider: 06/10/18 19:41 Source: family, RN notes reviewed, old records reviewed Mode of arrival: wheelchair Limitations: no limitations - History of Present Illness Initial comments: this is a 57-year-old female the ER for evaluation. Patient resents today for evaluation regards to possible TIA symptoms. Patient states she had some left- sided facial droop no slurred speech. Patient has history of CVA TIA. No significant component deficits. Patient's family members noticed left-sided facial droop prior to arrival with significant improvement. Patient also has some shaking that was noticed by her daughter and prompted coming to the emergency room. Patient does follow up with neurology. Again she states family states symptoms are much improved - Related Data Home Medications Medication Instructions Recorded Confirmed Multivitamins, Thera [Multivitamin 1 tab PO DAILY 05/17/14 06/10/18 (formulary)] Dapagliflozin Propanediol [Farxiga] 5 mg PO DAILY 04/13/17 06/10/18 Insulin Glargine [Lantus] 40 unit SQ HS 04/13/17 06/10/18 lamoTRIgine [LaMICtal] 50 mg PO HS 04/13/17 06/10/18 metFORMIN HCL 1,000 mg PO BID 04/17/18 06/10/18 Clopidogrel [Plavix] 75 mg PO DAILY 06/10/18 06/10/18 Fenofibrate 160 mg PO DAILY 06/10/18 06/10/18 Potassium Citrate [Potassium 10 meq PO BID 06/10/18 06/10/18 Citrate ER] Simvastatin 80 mg PO HS 06/10/18 06/10/18 Previous Rx's Medication Instructions Recorded traMADol HCl [Ultram] 50 mg PO Q6H PRN #20 04/16/17 Allergies Allergy/AdvReac Type Severity Reaction Status Date / Time No Known Allergies Allergy Verified 06/10/18 19:42 Review of Systems ROS Statement: Those systems with pertinent positive or pertinent negative responses have been documented in the HPI. ROS Other: All systems not noted in ROS Statement are negative. Past Medical History Past Medical History: Cancer, Chest Pain / Angina, CVA/TIA, Diabetes Mellitus, Hyperlipidemia, Hypertension, Osteoarthritis (OA), Pneumonia, Renal Disease Additional Past Medical History / Comment(s): uterine cancer stage II status post total hysterectomy with bilateral salpingo-oophorectomy. Treated at [facility]. No chemotherapy or radiation therapy. IBS, diverticulitis, BRONCHNITIS, history of abscess to the left lower extremity with MRSA in 2012. CELLULITIS RT LOWER, kidney strones, pt. states her kidney ouput is only 45% History of Any Multi-Drug Resistant Organisms: MRSA Date of last positivie culture/infection: 2011 MDRO Source:: left leg Past Surgical History: Cholecystectomy, Hysterectomy, Tonsillectomy Past Anesthesia/Blood Transfusion Reactions: No Reported Reaction Past Psychological History: Anxiety, Depression Smoking Status: Former smoker Past Alcohol Use History: None Reported Past Drug Use History: Marijuana - Past Family History Father Family Medical History: Congestive Heart Failure (CHF), Diabetes Mellitus, Dialysis, Hyperlipidemia, Hypertension, Renal Disease Additional Family Medical History / Comment(s): AT AGE 64- Mother Family Medical History: CVA/TIA, Diabetes Mellitus, Hyperlipidemia, Hypertension , Myocardial Infarction (OR) Additional Family Medical History / Comment(s): MOM AT AGE 74. General Exam - General Exam Comments Initial Comments: NIH of 2 Limitations: no limitations General appearance: alert, in no apparent distress Head exam: Present: atraumatic, normocephalic, normal inspection Eye exam: Present: normal appearance, PERRL, EOMI. Absent: scleral icterus, conjunctival injection, periorbital swelling ENT exam: Present: normal exam, mucous membranes moist Neck exam: Present: normal inspection. Absent: tenderness, meningismus, lymphadenopathy Respiratory exam: Present: normal lung sounds bilaterally. Absent: respiratory distress, wheezes, rales, rhonchi, stridor Cardiovascular Exam: Present: regular rate, normal rhythm, normal heart sounds. Absent: systolic murmur, diastolic murmur, rubs, gallop, clicks GI/Abdominal exam: Present: soft, normal bowel sounds. Absent: distended, tenderness, guarding, rebound, rigid Extremities exam: Present: normal inspection, full ROM, normal capillary refill. Absent: tenderness, pedal edema, joint swelling, calf tenderness Back exam: Present: normal inspection Neurological exam: Present: alert, oriented X3, CN II-XII intact Psychiatric exam: Present: normal affect, normal mood Skin exam: Present: warm, dry, intact, normal color. Absent: rash Course Vital Signs 06/10/18 06/10/18 06/10/18 19:20 19:45 20:00 Temperature 98.2 F Pulse Rate 70 70 71 Respiratory 18 16 16 Rate Blood Pressure 186/102 138/60 142/56 O2 Sat by Pulse 97 98 98 Oximetry 06/10/18 06/10/18 06/10/18 20:30 20:45 21:15 Temperature 98.0 F Pulse Rate 66 66 66 Respiratory 16 16 18 Rate Blood Pressure 189/99 147/80 142/80 O2 Sat by Pulse 98 98 98 Oximetry 06/10/18 06/10/18 22:15 23:18 Temperature 98.0 F Pulse Rate 76 78 Respiratory 18 18 Rate Blood Pressure 147/87 138/80 O2 Sat by Pulse 98 98 Oximetry - Reevaluation(s) Reevaluation #1: patient was continued to improve, patient states related to follow-up with neurology as an outpatient basis EKG Findings - EKG Comments: EKG Findings:: EKG shows normal sinus rhythm rate of 71, DC 188, QRS 80, QTC 449 Medical Decision Making - Medical Decision Making 57 female the ER for evaluation, patient coming in with neurological complaints.patient does have left-sided facial droop which is now resolved. Patient states she would like to be discharged home - Lab Data Result diagrams: 06/10/18 20:08 06/10/18 20:08 Lab Results 06/10/18 06/10/18 06/10/18 Range/Units 20:07 20:08 20:08 WBC 6.3 (3.8-10.6) k/uL RBC 4.25 (3.80-5.40) m/uL Hgb 12.5 (11.4-16.0) gm/dL Hct 37.4 (34.0-46.0) % MCV 87.9 (80.0-100.0) fL MCH 29.4 (25.0-35.0) pg MCHC 33.4 (31.0-37.0) g/dL RDW 12.9 (11.5-15.5) % Plt Count 283 (150-450) k/uL Neutrophils % 50 % Lymphocytes % 35 % Monocytes % 8 % Eosinophils % 5 % Basophils % 1 % Neutrophils # 3.1 (1.3-7.7) k/uL Lymphocytes # 2.2 (1.0-4.8) k/uL Monocytes # 0.5 (0-1.0) k/uL Eosinophils # 0.3 (0-0.7) k/uL Basophils # 0.0 (0-0.2) k/uL PT (9.0-12.0) sec INR (<1.2) APTT (22.0-30.0) sec Sodium (137-145) mmol/L Potassium (3.5-5.1) mmol/L Chloride (98-107) mmol/L Carbon Dioxide (22-30) mmol/L Anion Gap mmol/L BUN (7-17) mg/dL Creatinine (0.52-1.04) mg/dL Est GFR (CKD-EPI)AfAm (>60 ml/min/1.73 sqM) Est GFR (CKD-EPI)NonAf (>60 ml/min/1.73 sqM) Glucose (74-99) mg/dL POC Glucose (mg/dL) 181 H (75-99) mg/dL POC Glu [employer] Worker ID [place] Calcium (8.4-10.2) mg/dL Total Bilirubin (0.2-1.3) mg/dL AST (14-36) U/L ALT (9-52) U/L Alkaline Phosphatase (38-126) U/L Total Creatine Kinase 110 (30-135) U/L CK-MB (CK-2) 2.3 (0.0-2.4) ng/mL CK-MB (CK-2) Rel Index 2.1 Troponin I <0.012 (0.000-0.034) ng/mL Total Protein (6.3-8.2) g/dL Albumin (3.5-5.0) g/dL 06/10/18 06/10/18 Range/Units 20:08 20:08 WBC (3.8-10.6) k/uL RBC (3.80-5.40) m/uL Hgb (11.4-16.0) gm/dL Hct (34.0-46.0) % MCV (80.0-100.0) fL MCH (25.0-35.0) pg MCHC (31.0-37.0) g/dL RDW (11.5-15.5) % Plt Count (150-450) k/uL Neutrophils % % Lymphocytes % % Monocytes % % Eosinophils % % Basophils % % Neutrophils # (1.3-7.7) k/uL Lymphocytes # (1.0-4.8) k/uL Monocytes # (0-1.0) k/uL Eosinophils # (0-0.7) k/uL Basophils # (0-0.2) k/uL PT 10.6 (9.0-12.0) sec INR 1.1 (<1.2) APTT 22.6 (22.0-30.0) sec Sodium 141 (137-145) mmol/L Potassium 4.1 (3.5-5.1) mmol/L Chloride 104 (98-107) mmol/L Carbon Dioxide 26 (22-30) mmol/L Anion Gap 11 mmol/L BUN 25 H (7-17) mg/dL Creatinine 1.19 H (0.52-1.04) mg/dL Est GFR (CKD-EPI)AfAm 59 (>60 ml/min/1.73 sqM) Est GFR (CKD-EPI)NonAf 51 (>60 ml/min/1.73 sqM) Glucose 174 H (74-99) mg/dL POC Glucose (mg/dL) (75-99) mg/dL POC Glu Deli Worker ID Calcium 9.4 (8.4-10.2) mg/dL Total Bilirubin 0.3 (0.2-1.3) mg/dL AST 19 (14-36) U/L ALT 25 (9-52) U/L Alkaline Phosphatase 52 (38-126) U/L Total Creatine Kinase (30-135) U/L CK-MB (CK-2) (0.0-2.4) ng/mL CK-MB (CK-2) Rel Index Troponin I (0.000-0.034) ng/mL Total Protein 6.4 (6.3-8.2) g/dL Albumin 3.6 (3.5-5.0) g/dL - Radiology Data Radiology results: report reviewed (CT brain CTA had not negative for acute disease), image reviewed Disposition Clinical Impression: Transient cerebral ischemia Disposition: HOME SELF-CARE Condition: Fair Instructions: Transient Ischemic Attack (ED) Is patient prescribed a controlled substance at d/c from ED?: No Referrals: James García DO [Primary Care Provider] - 1-2 days
[2018-06-10 20:58] LABS: Creatine Kinase 110 U/L (30-135)
--- NOTE | 2018-06-10 21:07 | CT ---
EXAMINATION TYPE: CT angio head neck DATE OF EXAM: 06/10/2018 HISTORY: left sided weakness and numbness COMPARISON: 04/13/2017 CT DLP: 443.3 mGycm. Automated Exposure Control for Dose Reduction was Utilized. TECHNIQUE: CTA scan of the neck is performed with IV Contrast, patient injected with 65mL mL of Isov ue 370, axial images are obtained, coronal and sagittal reformatted images are reviewed. Three-D kishore nstructed images are created on an independent workstation and reviewed. FINDINGS: There is normal branching pattern of the great vessels on the aortic arch. There is arterial flow in both vertebral arteries. There is arterial flow in the common internal and external carotid arteries bilaterally. There is mild bilateral plaque at the carotid artery bifurcations. There is lumen narrow ing less than 25%. There is no evidence of carotid or vertebral artery aneurysm or dissection. There is arterial flow in the vertebrobasilar artery system. There is arterial flow in the anterior m iddle and posterior cerebral arteries. There is hypodensity in the right hemisphere consistent with o ld right middle cerebral artery infarct. I see no evidence of intracranial artery aneurysm or neovasc ularity. There is normal contrast opacification of the venous sinuses. There is no evidence of intrac ranial arterial stenosis. IMPRESSION: Mild plaque at the carotid artery bifurcations and less than 25% stenosis at the origin of the regulatory intern al carotid arteries. No evidence of carotid or vertebral dissection. No demonstrated intracranial arterial abnormality. No adverse change compared to old exam.
[2018-06-10 21:10] LABS: Creatine Kinase MB 2.3 ng/mL (0.0-2.4); Troponin I <0.012 ng/mL (0.000-0.034)
[2018-06-10 21:18] VITALS: RESP 18
[2018-06-10 23:19] VITALS: BP 138/80; PULSE 78
== END 2018-06-10 23:18 | disposition home or self-care (01) ==
LOC: EC 19:10
DX: G45.9 Transient cerebral ischemic attack, unspecified (principal); E78.5 Hyperlipidemia, unspecified; E11.9 Type 2 diabetes mellitus without complications; I10 Essential (primary) hypertension; Z85.42 Personal history of malignant neoplasm of other parts of uterus; Z87.891 Personal history of nicotine dependence; Z79.4 Long term (current) use of insulin; Z79.899 Other long term (current) drug therapy; Z79.01 Long term (current) use of anticoagulants
CPT/HCPCS: 36415; 70450; 70496; 70498; 80053; 82550; 82553; 84484; 85025; 85610; 85730; 93005; 96360; 99285

== ENCOUNTER → 2018-06-11 | Outpatient (CLI) | payer OTHER ==
--- NOTE | 2018-06-11 09:53 | US ---
EXAMINATION TYPE: US kidneys/renal and bladder DATE OF EXAM: 06/11/2018 COMPARISON: US 04/19/2018 CLINICAL HISTORY: N17.9 Acute Kidney Injury. History of hydronephrosis and stones EXAM MEASUREMENTS: Right Kidney: 9.4 x 4.8 x 4.5 cm Left Kidney: 10.3 x 5.1 x 4.1 cm Right Kidney: No hydronephrosis. Echogenic foci visualized measuring 0.7 cm Left Kidney: No hydronephrosis. Echogenic foci visualized lower pole measuring 1.8 cm Bladder: Not fully distended Bilateral Jets seen: Not, bladder is not fully distended IMPRESSION: 1. Nonobstructing nephrolithiasis.
== END ==
LOC: RADUSWWP 09:18
PROVIDERS: ATTEND Internal Medicine Nephrology
DX: N20.0 Calculus of kidney (principal)
CPT/HCPCS: 76770

== ENCOUNTER → 2018-07-21 | Outpatient (CLI) | payer OTHER ==
[2018-07-21 18:35] LABS: LDL Cholesterol,Calculated 80.2 mg/dL (0.0-131.0); VLDL Calculation 27.8 mg/dL (5.00-40.00)
== END | disposition home or self-care (01) ==
LOC: LABWHC1 12:55
PROVIDERS: ATTEND Psychiatry & Neurology Pain Medicine
DX: I63.9 Cerebral infarction, unspecified (principal)
CPT/HCPCS: 36415; 80061

== ENCOUNTER 2018-08-26 18:59 | Observation (INO) | payer OTHER ==
[2018-08-26 19:07] LABS: Glucose,Whole Blood 210 mg/dL (75-99)
--- NOTE | 2018-08-26 19:21 | ED ---
Neuro HPI - General Chief Complaint: Neuro Symptoms/Deficit Stated Complaint: Stroke Time Seen by Provider: 08/26/18 19:00 Source: patient, EMS, RN notes reviewed, old records reviewed Mode of arrival: EMS Limitations: physical limitation - History of Present Illness Is the patient presenting with stroke symptoms?: Yes Initial Comments: This is a 57-year-old female with a history of CVA and TIAs who apparently is about 20 minutes prior to admission had an episode where she became very weak in the left side felt floor. She demonstrated left facial droop left arm and leg weakness. In route she became more responsive as initially she was unresponsive. Upon arrival she was awake and able answer questions and moving her extremities better. She complains of a headache no neck pain no other complaints at this time. She has had numerous TIAs apparently in the past. No change in medications no fevers chills nausea vomiting sweats no other modifying factors at this time. - Related Data Home Medications: Home Medications Medication Instructions Recorded Confirmed Multivitamins, Thera [Multivitamin 1 tab PO DAILY 05/17/14 08/26/18 (formulary)] Insulin Glargine [Lantus] 40 unit SQ HS 04/13/17 08/26/18 lamoTRIgine [LaMICtal] 50 mg PO HS 04/13/17 08/26/18 metFORMIN HCL 1,000 mg PO BID 04/17/18 08/26/18 Clopidogrel [Plavix] 75 mg PO DAILY 06/10/18 08/26/18 Fenofibrate 160 mg PO DAILY 06/10/18 08/26/18 Potassium Citrate [Potassium 10 meq PO BID 06/10/18 08/26/18 Citrate ER] Simvastatin 80 mg PO HS 06/10/18 08/26/18 Desvenlafaxine [Pristiq ER] 100 mg PO DAILY 08/26/18 08/26/18 Furosemide [Lasix] 10 mg PO DAILY PRN 08/26/18 08/26/18 Pantoprazole Sodium [Protonix] 40 mg PO DAILY 08/26/18 08/26/18 Ranitidine HCl 150 mg PO BID 08/26/18 08/26/18 Allergies/Adverse Reactions: Allergies Allergy/AdvReac Type Severity Reaction Status Date / Time No Known Allergies Allergy Verified 08/26/18 19:43 Review of Systems ROS Statement: Those systems with pertinent positive or pertinent negative responses have been documented in the HPI. ROS Other: All systems not noted in ROS Statement are negative. General Exam - General Exam Comments Initial Comments: This is a well-developed well-nourished awake alert oriented 3 female currently she demonstrates a Armando Coma Scale of 15 Limitations: physical limitation General appearance: alert, anxious Head exam: Present: normocephalic, other (There is a contusion to the right forehead with a linear abrasion noted above the right eyebrow lateral aspect extending upwards towards the scalp line. No definite step-off or crepitation no active bleeding no laceration or require repair. No step-off no crepitation as stated) Eye exam: Present: normal appearance, PERRL, EOMI. Absent: scleral icterus, conjunctival injection, periorbital swelling ENT exam: Present: normal exam, mucous membranes moist Neck exam: Present: normal inspection. Absent: tenderness, meningismus, lymphadenopathy Respiratory exam: Present: normal lung sounds bilaterally. Absent: respiratory distress, wheezes, rales, rhonchi, stridor Cardiovascular Exam: Present: regular rate, normal rhythm, normal heart sounds. Absent: systolic murmur, diastolic murmur, rubs, gallop, clicks GI/Abdominal exam: Present: soft, normal bowel sounds. Absent: distended, tenderness, guarding, rebound, rigid Rectal exam: Present: deferred Extremities exam: Present: normal inspection, normal capillary refill, other ( She is able move her extremities oh). Absent: full ROM Back exam: Present: normal inspection Neurological exam: Present: alert, oriented X3, CN II-XII intact, motor sensory deficit Psychiatric exam: Present: normal affect, normal mood Skin exam: Present: warm, dry. Absent: normal color Stroke MDM - Lab Data Result diagrams: 08/26/18 19:24 08/26/18 19:24 Lab Results 08/26/18 08/26/18 08/26/18 Range/Units 19:05 19:24 19:24 WBC 7.3 (3.8-10.6) k/uL RBC 4.96 (3.80-5.40) m/uL Hgb 14.7 (11.4-16.0) gm/dL Hct 45.3 (34.0-46.0) % MCV 91.3 (80.0-100.0) fL MCH 29.7 (25.0-35.0) pg MCHC 32.5 (31.0-37.0) g/dL RDW 13.4 (11.5-15.5) % Plt Count 329 (150-450) k/uL Neutrophils % 53 % Lymphocytes % 36 % Monocytes % 5 % Eosinophils % 4 % Basophils % 1 % Neutrophils # 3.9 (1.3-7.7) k/uL Lymphocytes # 2.6 (1.0-4.8) k/uL Monocytes # 0.4 (0-1.0) k/uL Eosinophils # 0.3 (0-0.7) k/uL Basophils # 0.1 (0-0.2) k/uL PT (9.0-12.0) sec INR (<1.2) APTT (22.0-30.0) sec Sodium (137-145) mmol/L Potassium (3.5-5.1) mmol/L Chloride (98-107) mmol/L Carbon Dioxide (22-30) mmol/L Anion Gap mmol/L BUN (7-17) mg/dL Creatinine (0.52-1.04) mg/dL Est GFR (CKD-EPI)AfAm (>60 ml/min/1.73 sqM) Est GFR (CKD-EPI)NonAf (>60 ml/min/1.73 sqM) Glucose (74-99) mg/dL POC Glucose (mg/dL) 210 H (75-99) mg/dL POC Glu Academic Computing Director ID Brittany Sultana Calcium (8.4-10.2) mg/dL Magnesium (1.6-2.3) mg/dL Total Bilirubin (0.2-1.3) mg/dL AST (14-36) U/L ALT (9-52) U/L Alkaline Phosphatase (38-126) U/L Total Creatine Kinase 105 (30-135) U/L CK-MB (CK-2) 2.0 (0.0-2.4) ng/mL CK-MB (CK-2) Rel Index 1.9 Troponin I <0.012 (0.000-0.034) ng/mL Total Protein (6.3-8.2) g/dL Albumin (3.5-5.0) g/dL 08/26/18 08/26/18 Range/Units 19:24 19:24 WBC (3.8-10.6) k/uL RBC (3.80-5.40) m/uL Hgb (11.4-16.0) gm/dL Hct (34.0-46.0) % MCV (80.0-100.0) fL MCH (25.0-35.0) pg MCHC (31.0-37.0) g/dL RDW (11.5-15.5) % Plt Count (150-450) k/uL Neutrophils % % Lymphocytes % % Monocytes % % Eosinophils % % Basophils % % Neutrophils # (1.3-7.7) k/uL Lymphocytes # (1.0-4.8) k/uL Monocytes # (0-1.0) k/uL Eosinophils # (0-0.7) k/uL Basophils # (0-0.2) k/uL PT 10.7 (9.0-12.0) sec INR 1.0 (<1.2) APTT 20.9 L (22.0-30.0) sec Sodium 140 (137-145) mmol/L Potassium 4.1 (3.5-5.1) mmol/L Chloride 104 (98-107) mmol/L Carbon Dioxide 19 L (22-30) mmol/L Anion Gap 17 mmol/L BUN 25 H (7-17) mg/dL Creatinine 1.24 H (0.52-1.04) mg/dL Est GFR (CKD-EPI)AfAm 56 (>60 ml/min/1.73 sqM) Est GFR (CKD-EPI)NonAf 49 (>60 ml/min/1.73 sqM) Glucose 222 H (74-99) mg/dL POC Glucose (mg/dL) (75-99) mg/dL POC Glu Academic Computing Director ID Calcium 9.9 (8.4-10.2) mg/dL Magnesium 1.4 L (1.6-2.3) mg/dL Total Bilirubin 0.3 (0.2-1.3) mg/dL AST 35 (14-36) U/L ALT 39 (9-52) U/L Alkaline Phosphatase 51 (38-126) U/L Total Creatine Kinase (30-135) U/L CK-MB (CK-2) (0.0-2.4) ng/mL CK-MB (CK-2) Rel Index Troponin I (0.000-0.034) ng/mL Total Protein 7.4 (6.3-8.2) g/dL Albumin 4.2 (3.5-5.0) g/dL - NIH Stroke Scale 1a. Level of Consciousness: (1) not alert, arousable 1b. LOC Questions: (0) answers correctly 1c. LOC Commands: (0) performs tasks correctly 2. Best Gaze: (0) normal 3. Visual: (0) no visual loss 4. Facial Palsy: (0) normal symmetrical movement 5a. Motor Arm Left: (0) no drift 5b. Motor Arm Right: (0) no drift 6a. Motor Leg Left: (0) no drift 6b. Motor Leg Right: (1) drift 7. Limb Ataxia: (0) absent 8. Sensory: (0) normal 9. Best Language: (0) no aphasia 10. Dysarthria: (0) normal 11. Extinction/Inattention: (0) no abnormality - Thrombolytic Inclusion/Exclusion Thrombolytic Contraindications: Rapidly Improving s/s - Medical Decision Making After multiple reevaluation the patient back to her normal baseline with no deficits. I did discuss case with her and multiple family members as well as Dr. Carney. Patient be admitted with consultation by Dr. Mata. - EKG Data -: EKG Interpreted by Me EKG shows normal: sinus rhythm (Sinus rhythm rate 83. Interval 186 QRS duration 80 QT since QTC 44/474 minimal voltage criteria for LVH.) Past Medical History Past Medical History: Cancer, Chest Pain / Angina, CVA/TIA, Diabetes Mellitus, Hyperlipidemia, Hypertension, Osteoarthritis (OA), Pneumonia, Renal Disease Additional Past Medical History / Comment(s): uterine cancer stage II status post total hysterectomy with bilateral salpingo-oophorectomy. Treated at [facility]. No chemotherapy or radiation therapy. IBS, diverticulitis, BRONCHNITIS, history of abscess to the left lower extremity with MRSA in 2011. CELLULITIS RT LOWER, kidney strones, pt. states her kidney ouput is only 45% History of Any Multi-Drug Resistant Organisms: MRSA Date of last positivie culture/infection: 2011 MDRO Source:: left leg Past Surgical History: Cholecystectomy, Hysterectomy, Tonsillectomy Past Anesthesia/Blood Transfusion Reactions: No Reported Reaction Past Psychological History: Anxiety, Depression Smoking Status: Former smoker Past Alcohol Use History: None Reported Past Drug Use History: Marijuana - Past Family History Father Family Medical History: Congestive Heart Failure (CHF), Diabetes Mellitus, Dialysis, Hyperlipidemia, Hypertension, Renal Disease Additional Family Medical History / Comment(s): AT AGE 64- Mother Family Medical History: CVA/TIA, Diabetes Mellitus, Hyperlipidemia, Hypertension , Myocardial Infarction (NE) Additional Family Medical History / Comment(s): MOM AT AGE 74. Course Vital Signs 08/26/18 08/26/18 08/26/18 19:02 19:08 19:30 Temperature 97.7 F Pulse Rate 90 87 77 Respiratory 18 20 14 Rate Blood Pressure 183/108 162/114 O2 Sat by Pulse 98 Oximetry 08/26/18 20:00 Temperature Pulse Rate 80 Respiratory 16 Rate Blood Pressure 179/106 O2 Sat by Pulse Oximetry - Reevaluation(s) Reevaluation #1: 08/26/18 20:43 Reevaluation the patient even during the exam the patient was responding better. On my reexamination she was awake alert with no new deficits. Reevaluation #2: 08/26/18 20:58 Reevaluation patient reveals she is awake alert oriented 3 without deficits Critical Care Time Critical Care Time: Yes Critical Care Time: 32 minutes of critical care time which includes initial presentation with history physical labs x-rays discussed with paramedics. Review of old charting. Several re-evaluations the patient. Discussed with the patient family regarding findings discussion with the admitting physician admission orders and documentation of the above Disposition Clinical Impression: Transient ischemic attack (TIA) Disposition: ADMITTED IP TO THIS [facility] Condition: Stable Referrals: James García DO [Primary Care Provider] - 1-2 days
[2018-08-26 19:39] LABS: Basophils # (A) 0.1 k/uL (0-0.2); Basophils % (A) 1 %; Eosinophils # (A) 0.3 k/uL (0-0.7); Eosinophils % (A) 4 %; HCT 45.3 % (34.0-46.0); HGB 14.7 gm/dL (11.4-16.0); Lymphocytes # (A) 2.6 k/uL (1.0-4.8); Lymphocytes % (A) 36 %; MCH 29.7 pg (25.0-35.0); MCHC 32.5 g/dL (31.0-37.0); MCV 91.3 fL (80.0-100.0); Monocytes # (A) 0.4 k/uL (0-1.0); Monocytes % (A) 5 %; Neutrophils # (A) 3.9 k/uL (1.3-7.7); Neutrophils % (A) 53 %; Platelet Count 329 k/uL (150-450); RBC 4.96 m/uL (3.80-5.40); RDW 13.4 % (11.5-15.5); WBC 7.3 k/uL (3.8-10.6)
[2018-08-26 19:54] LABS: Albumin 4.2 g/dL (3.5-5.0); Calcium 9.9 mg/dL (8.4-10.2); Magnesium 1.4 mg/dL (1.6-2.3); Potassium 4.1 mmol/L (3.5-5.1); Total Bilirubin 0.3 mg/dL (0.2-1.3); Total Protein 7.4 g/dL (6.3-8.2)
[2018-08-26 19:55] LABS: Prothrombin Time 10.7 sec (9.0-12.0)
[2018-08-26 19:56] LABS: Partial Thromboplastin Time 20.9 sec (22.0-30.0)
[2018-08-26 20:05] LABS: Creatine Kinase 105 U/L (30-135)
[2018-08-26 20:17] LABS: Troponin I <0.012 ng/mL (0.000-0.034)
[2018-08-26] MEDS ORDERED: MAGNESIUM SULFATE-D5W PMX 1 GM in DEXTROSE/WATER 1 100ML.BAG IVPB ONE (20:23)
--- NOTE | 2018-08-26 20:54 | CT ---
EXAMINATION TYPE: CT brain jessica wo con DATE OF EXAM: 08/26/2018 COMPARISON: 06/10/2018 HISTORY: Fall. CT DLP: 1584.9 mGycm Automated exposure control for dose reduction was used. TECHNIQUE: CT scan of the head and cervical spine are performed without contrast. FINDINGS: Overlying the right frontal bone in the supraorbital position is subcutaneous soft tissue swelling. There is no underlying fracture. Calvarium is intact and there is no acute intracranial he morrhage. No mass effect or midline shift. Right MCA territory encephalomalacia redemonstrated, consi stent with remote microvascular infarction. There is no definite acute attenuation defect. The ventri cles and sulci are within normal limits in size. The globes are intact and the visualized sinuses are clear. Cervical spine is visualized in its entirety from C1 through upper thoracic levels and demonstrates s atisfactory alignment without evidence of acute fracture or dislocation. Prevertebral soft tissue ap pears within normal limits. The C1-C2 articulation is unremarkable. IMPRESSION: 1. There is no acute fracture or dislocation evident in the cervical spine. 2. No acute intracranial hemorrhage, mass effect, or midline shift is seen.
--- NOTE | 2018-08-26 21:04 | XR ---
EXAMINATION: XR chest 2V DATE AND TIME: 08/26/2018 7:59 PM CLINICAL INDICATION: PHH; altered mental status TECHNIQUE: Departmental protocol COMPARISON: 04/17/2018 FINDINGS: The overlying soft tissues are prominent. The Lungs appear clear. The pleural spaces are negative. The cardiac silhouette is not enlarged. The remainder of the mediastinal silhouette is unremarkable. The skeletal structures and soft tissues are negative for acute findings. IMPRESSION: NO ACUTE PROCESS.
[2018-08-26] MEDS ORDERED: FUROSEMIDE 10 MG TAB PO PRN (21:06)
[2018-08-26] MEDS ORDERED: HYDROmorphone 1 MG/ML 1 ML SYRINGE IVP STA (21:13)
[2018-08-26 22:39] LABS: Glucose,Whole Blood 224 mg/dL (75-99)
[2018-08-26] MEDS: INSULIN DETEMIR 100 UNIT/ML 10 ML VIAL SQ SCH (23:59)
[2018-08-26] MEDS: SODIUM CHLORIDE 0.9% 1,000 ML IV SCH (23:59)
[2018-08-27] MEDS ORDERED: ACETAMINOPHEN TAB 325 MG TAB PO PRN (01:22)
--- NOTE | 2018-08-27 05:14 | HP ---
HISTORY AND PHYSICAL DATE OF SERVICE: 08/26/2018. PRESENTING COMPLAINT: Passed out. HISTORY OF PRESENTING COMPLAINT: This is a 57-year-old patient who was here in the hospital about 5 months ago. Follows with Dr. García. Chronic stable medical conditions include diabetes, hyperlipidemia, hypertension, osteoarthritis, anxiety, depression, and irritable bowel syndrome, kidney stones. The patient then in March presented with episodes of shaking on the left side. About a year ago, was known to have a stroke affecting the right middle cerebral artery area. The patient then did have an EEG that was within normal limits. It was felt to be TIA by Dr. Mata's team. The patient informed me there may be a shunt and neurology is planning to do further workup for the same. The patient today was sitting inside the house and the son had gone out for a minute. The patient felt some numbness left side of the face left arm and then fell down. By the time she presented to the ER, symptoms apparently resolved. The NIH Scale was followed. She was not felt to be a candidate for any intervention. The patient was feeling a bit tired when I saw her. Nearly back to her baseline right now, she states. The patient has some chronic numbness in the left arm and left leg. REVIEW OF SYSTEMS: CONSTITUTIONAL: Tired. HEENT: None. RESPIRATORY: None. GASTROINTESTINAL none. GENITOURINARY none. Musculoskeletal: None. DERMATOLOGICAL, HEMATOLOGIC, LYMPHATICS: None. PSYCHIATRY: None. NEUROLOGICAL as above. PAST MEDICAL HISTORY: Past medical history of TIA, questionable focal seizure, diabetes, hyperlipidemia, hypertension, osteoarthritis, irritable bowel syndrome, anxiety, depression, bilateral kidney stones, stroke affecting the right MCA territory. PAST SURGICAL HISTORY: Cholecystectomy, hysterectomy, tonsillectomy, laser stone. PSYCH HISTORY: Depression, anxiety. SOCIAL HISTORY: Started smoking age of 10, smoked 2 packs a day, quit 1996. Occasional marijuana. 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 Currently lives with her . FAMILY HISTORY: Of congestive heart failure, diabetes, dialysis, hyperlipidemia, hypertension. HOME MEDICATIONS: 1. Metformin 1000 mg p.o. b.i.d. 2. Lamictal 50 mg q.h.s. 3. Simvastatin 80 mg q.h.s. 4. Potassium 10 mEq p.o. b.i.d. 5. Protonix 40 mg daily. 6. Multivitamin one tab p.o. daily. 7. Lantus 40 units subcutaneously at bedtime. 8. Lasix 10 mg daily p.r.n. 9. Tricor 160 mg p.o. daily. 10.Pristiq ER 100 mg p.o. daily. 11.Plavix 75 mg p.o. daily. 12.Ultram 50 mg dose unknown. ALLERGIES: None. PHYSICAL EXAMINATION: VITAL SIGNS: Vital signs on presentation: Temp 97.7, pulse 98, respiratory 18, blood pressure 192953, repeat 157/76, pulse ox 98 percent on room air. GENERAL APPEARANCE: Well built, BMI 36.4, lying in bed. EYES: Pupils equal. Conjunctivae normal. HEENT: External appearance of nose and ears normal. Oral cavity normal. NECK: JVD not raised. Mass not palpable. RESPIRATORY: Effort normal. LUNGS: Slightly decreased breath sounds. CARDIOVASCULAR: 1st and 2nd sounds normal. No edema. ABDOMEN: Soft, nontender. Liver and spleen not palpable. LYMPHATICS: No lymph nodes palpable in neck or axillae. PSYCHIATRY: Alert and oriented times three. Mood and affect slightly low. NEUROLOGICAL: Moving all 4 limbs. Power and sensation grossly intact. INVESTIGATIONS: White count 7.3, hemoglobin 14.7, potassium 4.1, BUN 25, creatinine 1.24. Accu-Cheks 210, 224. EKG tracing personally reviewed by me shows normal sinus rhythm. Head and cervical spine CT unremarkable. Chest x-ray film personally reviewed by me shows no obvious infiltrates. ASSESSMENT: 1. Episode of patient passing out, could be also seizing upon clear entirely need to consider about transient ischemic attack versus a seizure episode. This again could be from the area of encephalomalacia on the right side of the brain. 2. Obesity; BMI 36.4. 3. Diabetes mellitus type 2 on oral hypoglycemic. 4. Hyperlipidemia. 5. Essential hypertension. 6. Primary osteoarthritis. 7. Irritable bowel syndrome. 8. Anxiety and depression, not otherwise specified. 9. Chronic kidney disease stage 3 from nephrosclerosis. PLAN: Neurology was consulted. Neuro checks are in place. Home medications are resumed. Lovenox for DVT prophylaxis. We will repeat EEG. Care was discussed with the patient. Copy to Dr. García. MMODL / IJN: [id number] /
[2018-08-27 06:00] LABS: Glucose,Whole Blood 194 mg/dL (75-99)
[2018-08-27] MEDS: INSULIN ASPART 100 UNIT/ML 1 ML 10 ML VIAL SQ SCH ×4 (06:44→21:29)
[2018-08-27] MEDS: PANTOPRAZOLE 40 MG TABLET PO SCH (06:45)
[2018-08-27 08:03] LABS: Cholesterol 180 mg/dL (<200); HDL Cholesterol 42 mg/dL (40-60); LDL Cholesterol,Calculated 100 mg/dL (0-99); Triglycerides 188 mg/dL (<150)
[2018-08-27] MEDS: MULTIVITAMINS, THERA 1 EACH TAB PO SCH (09:40)
[2018-08-27] MEDS: CLOPIDOGREL 75 MG TAB PO SCH (09:40)
[2018-08-27] MEDS: FENOFIBRATE 160 MG TAB PO SCH (09:40)
[2018-08-27] MEDS: FAMOTIDINE 20 MG TAB PO SCH ×2 (09:41→18:30)
[2018-08-27] MEDS: POTASSIUM CITRATE 10 MEQ TABLET.ER PO SCH ×2 (09:41→21:29)
--- NOTE | 2018-08-27 11:11 | P.CRDCN ---
History of Present Illness Consult date: 08/27/18 Requesting physician: Tramaine Jacobson Reason for Consult (text): tia Chief complaint: Left-sided facial numbness, syncope History of present illness: This is a 57-year-old female who has history of prior stroke one year ago, prior TIA, diabetes, hyperlipidemia, hypertension, anxiety, depression, nicotine dependence, occasional marijuana use, presented to the hospital with symptoms of left-sided facial numbness with a subsequent syncopal episode. Patient also states that she gets extremely shaky prior to passing out. She denies any chest discomfort at the time of this episode or prior to that. States that she has had a stress test in the past but this is been approximately 10 years. A cardiology consultation was requested to rule out cardiac cause of TIA, and we have also been consulted because of abnormality in troponin. Chest x-ray did not reveal any acute process. CAT scan of the head and cervical spine did not reveal any acute fracture or dislocation. No acute intracranial hemorrhage or mass effect or midline shift. Blood pressure 148/80 with a heart rate in the 60s, 97% on room air. White blood cell count 7.3, hemoglobin 14.7, platelet count 329. Sodium 140, potassium 4.1, BUN 25, creatinine 1.2. Troponins 0.012, 0.297, 0.430. Magnesium 1.4. Cholesterol 180 , LDL 100, HDL 42, triglycerides 188. At the time of my examination this morning, patient feels well, she denies any dizziness or lightheadedness no numbness or tingling, no chest discomfort. She did incur a hematoma around the right thigh area. Past Medical History Past Medical History: Cancer, Chest Pain / Angina, CVA/TIA, Diabetes Mellitus, Hyperlipidemia, Hypertension, Osteoarthritis (OA), Pneumonia, Renal Disease Additional Past Medical History / Comment(s): pt is rt side dominant.has had previous stroke that affected lt side. .uterine cancer stage II status post total hysterectomy with bilateral salpingo-oophorectomy. No chemotherapy or radiation therapy. IBS, diverticulitis, bronchitis, history of abscess to the left lower extremity with MRSA in 2011. 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 History of Any Multi-Drug Resistant Organisms: MRSA Date of last positivie culture/infection: 2011 MDRO Source:: left leg Past Surgical History: Cholecystectomy, Hysterectomy, Tonsillectomy Additional Past Surgical History / Comment(s): 10-22-17 cystoscopy, lt ureteroscopy w/ laser lithotripsy Past Anesthesia/Blood Transfusion Reactions: No Reported Reaction Smoking Status: Former smoker - Past Family History Father Family Medical History: Congestive Heart Failure (CHF), Diabetes Mellitus, Dialysis, Hyperlipidemia, Hypertension, Renal Disease Additional Family Medical History / Comment(s): AT AGE 64- Mother Family Medical History: CVA/TIA, Diabetes Mellitus, Hyperlipidemia, Hypertension , Myocardial Infarction ([place]) Additional Family Medical History / Comment(s): MOM AT AGE 74. Medications and Allergies Home Medications Medication Instructions Recorded Confirmed Type Multivitamins, Thera [Multivitamin 1 tab PO DAILY 05/17/14 08/26/18 History (formulary)] Insulin Glargine [Lantus] 40 unit SQ HS 04/13/17 08/26/18 History lamoTRIgine [LaMICtal] 50 mg PO HS 04/13/17 08/26/18 History metFORMIN HCL 1,000 mg PO BID 04/17/18 08/26/18 History Clopidogrel [Plavix] 75 mg PO DAILY 06/10/18 08/26/18 History Fenofibrate 160 mg PO DAILY 06/10/18 08/26/18 History Potassium Citrate [Potassium 10 meq PO BID 06/10/18 08/26/18 History Citrate ER] Simvastatin 80 mg PO HS 06/10/18 08/26/18 History Desvenlafaxine [Pristiq ER] 100 mg PO DAILY 08/26/18 08/26/18 History Furosemide [Lasix] 10 mg PO DAILY PRN 08/26/18 08/26/18 History Pantoprazole Sodium [Protonix] 40 mg PO DAILY 08/26/18 08/26/18 History traMADol HCl [Ultram] 50 mg PO 08/26/18 History Allergies Allergy/AdvReac Type Severity Reaction Status Date / Time No Known Allergies Allergy Verified 08/26/18 19:43 Physical Exam Vitals: Vital Signs Temp Pulse Pulse Resp BP BP Pulse Ox 08/27/18 08:04 98.5 F 61 18 149/84 97 08/27/18 04:00 97.4 F L 74 16 147/87 97 08/27/18 00:00 97.6 F 71 16 138/64 98 08/26/18 22:04 97.5 F L 69 15 180/101 96 08/26/18 21:24 73 16 157/76 98 08/26/18 20:00 80 16 179/106 08/26/18 19:30 77 14 162/114 08/26/18 19:08 87 20 183/108 98 08/26/18 19:02 97.7 F 90 18 Intake and Output 08/26/18 08/27/18 08/27/18 22:59 06:59 14:59 Intake Total 222 Balance 222 Intake: Oral 222 Other: Voiding Method Toilet Toilet # Voids 1 Weight 99.337 kg 93.3 kg PHYSICAL EXAMINATION: GENERAL: 57-year-old female in no acute distress at the time of my examination HEENT: Head is atraumatic, normocephalic. Pupils equal, round. Ecchymosis noted to the right eye. Sclera anicteric. Conjunctiva are clear. Mucous membranes of the mouth are moist. Neck is supple. There is no elevated jugular venous pressure. No carotid bruit is heard. HEART EXAMINATION: [Heart S1, S2 normal. No murmur or gallop heard.] CHEST EXAMINATION:[ Lungs are clear to auscultation and precussion. No chest wall tenderness is noted on palpation or with deep breathing.] ABDOMEN: [ Soft, nontender. Bowel sounds are heard. No organomegaly noted]. EXTREMITIES:[ 2+ peripheral pulses with no evidence of peripheral edema and no calf tenderness noted]. NEUROLOGIC [patient is awake, alert and oriented 3 .] . Results 08/26/18 19:24 08/26/18 19:24 Cardiac Enzymes 08/26/18 08/26/18 08/27/18 Range/Units 19:24 19:24 01:58 AST 35 (14-36) U/L CK-MB (CK-2) 2.0 (0.0-2.4) ng/mL Troponin I <0.012 0.297 H* (0.000-0.034) ng/mL 12/07/18 Range/Units 06:48 AST (14-36) U/L CK-MB (CK-2) (0.0-2.4) ng/mL Troponin I 0.430 H* (0.000-0.034) ng/mL Coagulation 08/26/18 Range/Units 19:24 PT 10.7 (9.0-12.0) sec APTT 20.9 L (22.0-30.0) sec Lipids 08/27/18 Range/Units 06:48 Triglycerides 188 H (<150) mg/dL Cholesterol 180 (<200) mg/dL HDL Cholesterol 42 (40-60) mg/dL CBC 08/26/18 Range/Units 19:24 WBC 7.3 (3.8-10.6) k/uL RBC 4.96 (3.80-5.40) m/uL Hgb 14.7 (11.4-16.0) gm/dL Hct 45.3 (34.0-46.0) % Plt Count 329 (150-450) k/uL Comprehensive Metabolic Panel 08/26/18 Range/Units 19:24 Sodium 140 (137-145) mmol/L Potassium 4.1 (3.5-5.1) mmol/L Chloride 104 (98-107) mmol/L Carbon Dioxide 19 L (22-30) mmol/L BUN 25 H (7-17) mg/dL Creatinine 1.24 H (0.52-1.04) mg/dL Glucose 222 H (74-99) mg/dL Calcium 9.9 (8.4-10.2) mg/dL AST 35 (14-36) U/L ALT 39 (9-52) U/L Alkaline Phosphatase 51 (38-126) U/L Total Protein 7.4 (6.3-8.2) g/dL Albumin 4.2 (3.5-5.0) g/dL Current Medications Generic Name Dose Route Start Last Admin Trade Name Freq PRN Reason Stop Dose Admin Acetaminophen 650 mg 08/27/18 01:22 08/27/18 01:54 Tylenol Tab PO 650 mg Q6HR PRN Administration Fever and/ or Pain Atorvastatin Calcium 40 mg 08/27/18 21:00 Lipitor PO HS DINORA Clopidogrel Bisulfate 75 mg 08/27/18 09:00 08/27/18 09:40 Plavix PO 75 mg DAILY DINORA Administration Desvenlafaxine Succinate 100 mg 08/27/18 09:00 Pristiq Er PO DAILY DINORA Famotidine 20 mg 08/27/18 09:00 08/27/18 09:41 Pepcid PO 20 mg BID DINORA Administration Fenofibrate 160 mg 08/27/18 09:00 08/27/18 09:40 Lofibra PO 160 mg DAILY DINORA Administration Furosemide 10 mg 08/26/18 21:06 Lasix PO DAILY PRN Edema Sodium Chloride 1,000 mls @ 20 mls/hr 08/26/18 21:15 08/26/18 23:59 Saline 0.9% IV 20 mls/hr .Q24H DINORA Administration Insulin Aspart 0 unit 08/27/18 07:30 08/27/18 06:44 Novolog SQ 2 unit ACHS DINORA Administration Protocol Insulin Detemir 40 unit 08/26/18 21:00 08/26/18 23:59 Levemir SQ 40 unit HS DINORA Administration Lamotrigine 50 mg 08/27/18 21:00 Lamictal PO HS DINORA Metformin HCl 1,000 mg 08/27/18 09:00 Glucophage PO BID [facility] Multivitamins 1 each 08/27/18 12:00 08/27/18 09:40 Theragran PO 1 each 1200 DINORA Administration Pantoprazole Sodium 40 mg 08/27/18 07:30 08/27/18 06:45 Protonix PO 40 mg AC-[id number] DIONRA Administration Potassium Citrate 10 meq 08/27/18 09:00 08/27/18 09:41 Urocit-K PO 10 meq BID DINORA Administration Intake and Output 08/26/18 08/27/18 08/27/18 22:59 06:59 14:59 Intake Total 222 Balance 222 Intake: Oral 222 Other: Voiding Method Toilet Toilet # Voids 1 Weight 99.337 kg 93.3 kg 08/26/18 19:24 08/26/18 19:24 EKG Interpretations (text) EKG shows a normal sinus rhythm with no acute changes. Assessment and Plan Plan: Assessment and plan #1 symptoms of left-sided facial numbness with associated syncope and shaking. Rule out seizure, rule out possible TIA. #2 history of prior CVA #3 diabetes #4 hyperlipidemia #5 hypertension #6 irritable bowel syndrome #7 anxiety and depression #8 chronic kidney disease #9 abnormality in troponin, patient denied having any chest discomfort, her breathing overall has been stable. We will obtain an echocardiogram with Doppler study. Plan We will obtain an echocardiogram with Doppler study and requests that it be performed with bubble's, patient did have an echo performed a year ago which revealed a normal ejection fraction. We will also monitor for any arrhythmias, check orthostatic heart rate and blood pressure every shift. Further recommendations to follow. DNP note has been reviewed, I agree with a documented findings and plan of care. Patient was seen and examined.
[2018-08-27 12:05] LABS: Glucose,Whole Blood 193 mg/dL (75-99)
[2018-08-27] MEDS: DESVENLAFAXINE SUCCINATE 50 MG TAB.ER.24H PO SCH (12:38)
[2018-08-27] MEDS: metFORMIN 500 MG TAB PO SCH ×2 (12:38→18:30)
[2018-08-27 15:48] LABS: Hemoglobin A1C 7.9 % (4.0-6.0)
[2018-08-27 16:27] LABS: Glucose,Whole Blood 204 mg/dL (75-99)
--- NOTE | 2018-08-27 18:42 | PN ---
PROGRESS NOTE DATE OF SERVICE: 08/27/2018 PRESENTING COMPLAINT: Shaking episode. INTERVAL HISTORY: This patient presented with an episode of passing out. The patient's son is present at the bedside. What he described now appears more to be like seizure activity. The patient actually was jerking all over, hands were stretched out and clenched back and patient was frothing at the mouth. The patient has had similar jerking episodes before; what was being called possibly a TIA. Awaiting input from Neurology. Otherwise, patient looks much better. Patient does have bruising around the right eye, but the vision is good. Otherwise patient is stable, looking much better than yesterday. REVIEW OF SYSTEMS: Done for constitutional, cardiovascular, GI, pulmonary, neurological; relevant findings as above. CURRENT MEDICATIONS: Reviewed. PHYSICAL EXAMINATION: Temperature 98.5, pulse 66, respiration 16, blood pressure 188/54, previously 131/78, pulse ox 99% on room air. GENERAL APPEARANCE: Lying in bed, comfortable. EYES: Some bruising around the right eye. Conjunctivae normal. Pupils equal. NECK: JVD not raised. Mass not palpable. RESPIRATORY: Effort normal. LUNGS: Slightly decreased breath sounds. CARDIOVASCULAR: First and second sounds normal. No edema. ABDOMEN: Soft, non-tender. Liver and spleen not palpable. PSYCHIATRY: Alert and oriented x3. Mood and affect normal. INVESTIGATIONS: Troponin less than 0.012, 0.297, 0.4. ASSESSMENT: 1. Patient's episode described by her son appears to be a seizure episode, generalized tonic-clonic, probably from the area of encephalomalacia in the right side of the brain. Awaiting input from Neurology. 2. Obesity; body mass index 36.4. 3. Diabetes mellitus, type 2, on oral hypoglycemic. 4. Hyperlipidemia. 5. Essential hypertension. 6. Irritable bowel syndrome. 7. Anxiety, depression not otherwise specified. 8. Chronic kidney disease, stage III, from nephrosclerosis. 9. Bruising around the right part of the face from falling/local trauma. 10.Positive troponin. Doubt a direct cardiac cause. Cardiology evaluating the patient. PLAN: Care was discussed with the patient and plan was discussed with the patient and son at the bedside. Put seizure precautions on. Patient is looking much better today. Await input from Neurology. MMODL / IJN: [id number] /
--- NOTE | 2018-08-27 19:33 | EEG ---
ELECTROENCEPHALOGRAM REPORT DATE OF EE08/27/2018 ELECTROENCEPHALOGRAPHIC EXAMINATION REPORT: INDICATION FOR EXAMINATION: This patient is a 57-year-old female being evaluated for TIA and questionable seizure. Patient presented with left-sided weakness and tremors. AGE: [age]. EEG FINDINGS: A routine 21-channel awake digital EEG recording was accomplished utilizing the 10-20 international system with bipolar and referential montages. The background activity in the most alert resting state consists of a low to medium amplitude, fairly well developed and well sustained 7-8 Hz activity over the posterior head regions. This posterior rhythm attenuates to eye opening. There is a small amount of low amplitude 18-20 Hz beta activity seen maximally over the anterior head regions. Muscle and movement artifact was observed on a few occasions during the tracing. Hyperventilation was not performed. Photic stimulation at flash frequencies of 2-30 Hz produced a good symmetrical occipital driving response. Towards the mid and lateral portion of the tracing, the patient does drift into spontaneous drowsiness. No epileptiform discharges were seen. IMPRESSION: This EEG is within normal limits for the patient's age. The EEG failed to reveal any focal, lateralized, or epileptiform abnormalities. Clinical correlation is recommended. MMODL / IJN: [id number] /
--- NOTE | 2018-08-27 19:41 | P.CNNES ---
History of Present Illness Consult date: 08/27/18 Reason for Consult: Patient admitted with TIA and possible seizure. History of Present Illness: This patient is a 57-year-old right-handed white female who apparently was in her usual state of health yesterday. She was at home with her son and apparently had an episode in which she developed sudden onset of left-sided numbness and left facial droop. Patient apparently was standing and felt very weak and collapse to the ground. According to the patient and her son came to assist her and found that she was weak on the left side and was possibly having some tremors and shaking. Was unclear whether she may have had a seizure. EMS was called to the home and she was brought into the emergency room at [facility] yesterday for further evaluation. She was seen in the ER by Dr. Garcia. She was sent for a computed tomography scan of the brain and cervical spine. CAT scan of the brain revealed no acute intracranial hemorrhage mass effect or midline shift. CAT scan of the brain did reveal evidence of encephalomalacia in the right MCA territory. This was consistent with remote infarction. Computed tomography scan of the cervical spine revealed no acute fracture or dislocation. After being scan she was evaluated in the ER by Dr. Garcia. Her NIH stroke scale was 1.0.. Since her symptoms came on suddenly there was concern for possibility of TIA. Her NIH stroke scale being 1.0 she was not a candidate for any intervention with TPA. The patient does have a history of having suffered a right MCA stroke in March of last year. She has been on Plavix for treatment. She has had multiple episodes suggesting possibility of TIA over the last 1 year. She also has multiple other medical issues including history of uterine cancer stage II and has undergone a total hysterectomy. She is followed at the [facility] for this. She has not had any chemotherapy or radiation therapy. Patient also has been using simvastatin 80 mg daily as she has a history of hyperlipidemia. Patient was reevaluated in the ER by Dr. Garcia. Her admitting diagnosis was possible TIA. Patient states she has no history of major head trauma or head injury. She did undergo routine EEG today which was reviewed and does within normal limits with no evidence of any seizure activity. The patient was seen by cardiology today and she is being evaluated further for cardiac causes of her possible syncopal episode versus seizure. According to the patient she is being scheduled for KAMRON procedure tomorrow with bubble study. The patient states that she does take her Plavix on a regular basis for secondary stroke prevention. She did undergo the computed tomography scan of the brain on this admission which revealed only old findings of the right MCA stroke. No evidence of new or acute stroke was seen. Patient was recommended admission to the hospital for further evaluation. Neurology is now been consulted for further evaluation and recommendations. Review of Systems Constitutional: Denies chills, Denies fever Eyes: denies blurred vision, denies pain Ears, nose, mouth and throat: Denies headache, Denies sore throat Cardiovascular: Denies chest pain, Denies shortness of breath Respiratory: Denies cough Gastrointestinal: Denies abdominal pain, Denies diarrhea, Denies nausea, Denies vomiting Genitourinary: Denies dysuria, Denies hematuria Musculoskeletal: Denies myalgias Integumentary: Denies pruritus, Denies rash Neurological: Reports change in mentation, Reports confusion, Reports motor disturbance, Reports sensory deficit, Reports syncope, Denies numbness, Denies weakness Psychiatric: Denies anxiety, Denies depression Endocrine: Denies fatigue, Denies weight change Past Medical History Past Medical History: Cancer, Chest Pain / Angina, CVA/TIA, Diabetes Mellitus, Hyperlipidemia, Hypertension, Osteoarthritis (OA), Pneumonia, Renal Disease Additional Past Medical History / Comment(s): pt is rt side dominant.has had previous stroke that affected lt side. .uterine cancer stage II status post total hysterectomy with bilateral salpingo-oophorectomy. No chemotherapy or radiation therapy. IBS, diverticulitis, bronchitis, history of abscess to the left lower extremity with MRSA in 2011. 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 History of Any Multi-Drug Resistant Organisms: MRSA Date of last positivie culture/infection: 2011 MDRO Source:: left leg Past Surgical History: Cholecystectomy, Hysterectomy, Tonsillectomy Additional Past Surgical History / Comment(s): 10-22-17 cystoscopy, lt ureteroscopy w/ laser lithotripsy Past Anesthesia/Blood Transfusion Reactions: No Reported Reaction Smoking Status: Former smoker - Past Family History Father Family Medical History: Congestive Heart Failure (CHF), Diabetes Mellitus, Dialysis, Hyperlipidemia, Hypertension, Renal Disease Additional Family Medical History / Comment(s): AT AGE 64- Mother Family Medical History: CVA/TIA, Diabetes Mellitus, Hyperlipidemia, Hypertension , Myocardial Infarction ([place]) Additional Family Medical History / Comment(s): MOM AT AGE 74. Medications and Allergies Home Medications Medication Instructions Recorded Confirmed Type Multivitamins, Thera [Multivitamin 1 tab PO DAILY 05/17/14 08/26/18 History (formulary)] Insulin Glargine [Lantus] 40 unit SQ HS 04/13/17 08/26/18 History lamoTRIgine [LaMICtal] 50 mg PO HS 04/13/17 08/26/18 History metFORMIN HCL 1,000 mg PO BID 04/17/18 08/26/18 History Clopidogrel [Plavix] 75 mg PO DAILY 06/10/18 08/26/18 History Fenofibrate 160 mg PO DAILY 06/10/18 08/26/18 History Potassium Citrate [Potassium 10 meq PO BID 06/10/18 08/26/18 History Citrate ER] Simvastatin 80 mg PO HS 06/10/18 08/26/18 History Desvenlafaxine [Pristiq ER] 100 mg PO DAILY 08/26/18 08/26/18 History Furosemide [Lasix] 10 mg PO DAILY PRN 08/26/18 08/26/18 History Pantoprazole Sodium [Protonix] 40 mg PO DAILY 08/26/18 08/26/18 History traMADol HCl [Ultram] 50 mg PO 08/26/18 History Allergies Allergy/AdvReac Type Severity Reaction Status Date / Time No Known Allergies Allergy Verified 08/26/18 19:43 Physical Examination - Vital Signs Vital Signs: Vital Signs Temp Pulse Pulse Resp BP BP Pulse Ox 08/27/18 16:04 98.5 F 66 16 188/54 99 08/27/18 12:00 98 F 74 18 131/78 98 08/27/18 08:04 98.5 F 61 18 149/84 97 08/27/18 04:00 97.4 F L 74 16 147/87 97 08/27/18 00:00 97.6 F 71 16 138/64 98 08/26/18 22:04 97.5 F L 69 15 180/101 96 08/26/18 21:24 73 16 157/76 98 08/26/18 20:00 80 16 179/106 08/26/18 19:30 77 14 162/114 08/26/18 19:08 87 20 183/108 98 08/26/18 19:02 97.7 F 90 18 Intake and Output 08/27/18 08/27/18 08/27/18 06:59 14:59 22:59 Intake Total 524 Balance 524 Intake: Intake, IV Titration 80 Amount Sodium Chloride 0.9% 1, 80 000 ml @ 20 mls/hr IV . Q24H [facility] Rx#:[id number] Oral 444 Other: Voiding Method Toilet Toilet # Voids 1 Weight 93.3 kg - Constitutional General appearance: average body habitus, cooperative - EENT EENT: PERRL, mucous membranes moist - Respiratory Respiratory: lungs clear, normal breath sounds - Cardiovascular Cardiovascular: regular rate, normal S1, normal S2 Extremities: no peripheral edema bilaterally - Gastrointestinal Gastrointestinal: normoactive bowel sounds - Integumentary Integumentary: normal - Neurologic Cranial nerve examination: PERRL, EOMI, VFF, V1/V2/V3 grossly intact, tongue midline, intact gag reflex, intact corneal reflex, normal palatal elevation Speech examination: intact Sensorimotor examination: intact Motor examination - right side: 4/5: biceps, triceps, wrist flexion, wrist extension, coordinator volunteer services, hip flexors, knee extensors, dorsiflexion, toe extension (EHL) , plantarflexion Motor examination - left side: 3/5: biceps, triceps, wrist flexion, wrist extension, coordinator volunteer services, 4/5: hip flexors, knee extensors, dorsiflexion, toe extension ( EHL), plantarflexion Detailed sensory examination: intact Reflex and gait examination: intact Reflexes: 1+: ankle, bicep, knee, tricep - Musculoskeletal Musculoskeletal: no pain - Psychiatric Psychiatric: mood/affect appropriate, cooperative Results - Laboratory Findings CBC and BMP: 08/26/18 19:24 08/26/18 19:24 Abnormal Lab Findings: Abnormal Labs 08/26/18 08/26/18 08/26/18 19:05 19:24 19:24 APTT 20.9 L Carbon Dioxide 19 L BUN 25 H Creatinine 1.24 H Glucose 222 H POC Glucose (mg/dL) 210 H Hemoglobin A1c Magnesium 1.4 L Troponin I Triglycerides LDL Cholesterol, Calc 08/26/18 08/27/18 08/27/18 22:37 01:58 05:58 APTT Carbon Dioxide BUN Creatinine Glucose POC Glucose (mg/dL) 224 H 194 H Hemoglobin A1c Magnesium Troponin I 0.297 H* Triglycerides LDL Cholesterol, Calc 08/27/18 08/27/18 08/27/18 06:48 06:48 06:48 APTT Carbon Dioxide BUN Creatinine Glucose POC Glucose (mg/dL) Hemoglobin A1c 7.9 H Magnesium Troponin I 0.430 H* Triglycerides 188 H LDL Cholesterol, Calc 100 H 08/27/18 08/27/18 12:00 16:21 APTT Carbon Dioxide BUN Creatinine Glucose POC Glucose (mg/dL) 193 H 204 H Hemoglobin A1c Magnesium Troponin I Triglycerides LDL Cholesterol, Calc Assessment and Plan (1) Transient ischemic attack (TIA) Current Visit: Yes Status: Acute Code(s): G45.9 - TRANSIENT CEREBRAL ISCHEMIC ATTACK, UNSPECIFIED SNOMED Code(s): 791735812 (2) Syncope and collapse Current Visit: Yes Status: Acute Code(s): R55 - SYNCOPE AND COLLAPSE SNOMED Code(s): 950607289 (3) History of right MCA stroke Current Visit: Yes Status: Acute Code(s): Z86.73 - PRSNL HX OF TIA (TIA), AND CEREB INFRC W/O RESID DEFICITS SNOMED Code(s): 399783390 (4) Hyperlipidemia Current Visit: No Status: Acute Code(s): E78.5 - HYPERLIPIDEMIA, UNSPECIFIED SNOMED Code(s): 62926550 Plan: This patient is a 57-year-old female who was admitted to hospital yesterday after having a acute syncopal episode versus seizure at home. EMS was called to the home and she was transported to the ER yesterday for evaluation. She was seen in the emergency room at [facility] by Dr. Garcia. She underwent a computed tomography scan of the brain and cervical spine results of which are noted above. Patient was subsequent admitted to the hospital for further evaluation. Patient had left-sided weakness as well as numbness and facial droop. Her symptoms resolved by the time she reached the ER. Her NIH stroke scale on initial evaluation was 1.0. She was evaluated for any stroke intervention and was felt not to be a candidate for TPA and she had a very low NIH stroke scale and her symptoms were improving in the ER. The patient was subsequent admitted to the hospital. Her neurological examination at this time is nonfocal. She is being scheduled by cardiology for KAMRON procedure tomorrow and we will await those results. She is to continue on Plavix at this time for secondary stroke prevention. The patient underwent routine EEG today which was reviewed and is within normal limits. There was no evidence of any epileptiform discharges. We discussed the results of the EEG and CAT scan of the brain with the patient in detail today. We will give further recommendations pending her KAMRON results. Her overall prognosis at this time remains guarded. We will continue close neurological follow-up for the patient during this admission. Time with Patient: Greater than 30
[2018-08-27] MEDS ORDERED: ATORVASTATIN 40 MG TAB PO SCH (21:00)
[2018-08-27] MEDS ORDERED: lamoTRIgine 25 MG TAB PO SCH (21:00)
[2018-08-27] MEDS: INSULIN DETEMIR 100 UNIT/ML 10 ML VIAL SQ SCH (21:29)
[2018-08-27] MEDS: SODIUM CHLORIDE 0.9% 1,000 ML IV SCH (21:30)
[2018-08-27 21:31] LABS: Glucose,Whole Blood 129 mg/dL (75-99)
[2018-08-28 06:22] LABS: Glucose,Whole Blood 133 mg/dL (75-99)
[2018-08-28] MEDS: INSULIN ASPART 100 UNIT/ML 1 ML 10 ML VIAL SQ SCH ×2 (06:37→12:10)
[2018-08-28 06:38] LABS: Basophils # (A) 0.1 k/uL (0-0.2); Basophils % (A) 1 %; Eosinophils # (A) 0.2 k/uL (0-0.7); Eosinophils % (A) 3 %; HCT 44.6 % (34.0-46.0); HGB 14.4 gm/dL (11.4-16.0); Lymphocytes % (A) 39 %; MCH 29.3 pg (25.0-35.0); MCHC 32.4 g/dL (31.0-37.0); MCV 90.4 fL (80.0-100.0); Monocytes # (A) 0.5 k/uL (0-1.0); Monocytes % (A) 7 %; Neutrophils # (A) 3.9 k/uL (1.3-7.7); Neutrophils % (A) 49 %; Platelet Count 317 k/uL (150-450); RBC 4.93 m/uL (3.80-5.40); RDW 13.5 % (11.5-15.5); WBC 7.9 k/uL (3.8-10.6)
[2018-08-28 06:47] LABS: Potassium 4.4 mmol/L (3.5-5.1)
[2018-08-28] MEDS ORDERED: fentaNYL (PF) 50 MCG/ML 2 ML AMP ONE (08:17)
[2018-08-28] MEDS ORDERED: IV FLUID CONTINUATION 1,000 ML IV ONE (08:21)
[2018-08-28] MEDS: BENZOCAINE SPRAY 1 CAN TOPICAL ONE ×2 (08:26→08:43)
[2018-08-28] MEDS ORDERED: fentaNYL (PF) 50 MCG/ML 2 ML AMP IVP ONE (08:45)
[2018-08-28] MEDS ORDERED: MIDAZOLAM 2 MG/2 ML VIAL IVP ONE (08:45)
--- NOTE | 2018-08-28 09:12 | P.TEE ---
Indications for Procedure(s): Recurrent syncope versus seizures versus TIA. Rule out Cardec source of emboli Date of Procedure: 08/28/18 Preoperative Diagnosis: Recurrent TIA versus seizure Postoperative Diagnosis: The same Procedure(s) Performed: KAMRON Description of Procedure(s): INDICATION: This patient is admitted to the hospital with an episode of loss of consciousness preceded by possible seizure-like activity. She is diagnosed to have recurrent TIA and neurology is requested KAMRON examination to rule out any Cardec source of emboli CONSENT:. Verbal consent was obtained from the patient PROCEDURE: Patient was brought to the lab in a fasting state. She was prepped and draped in the usual fashion. Patient was given 2 mg of Versed and 50 g of fentanyl for sedation. The duration of the procedure is about 8 minutes. A lubricated Omni probe was introduced in the oropharynx and was advanced into the esophagus. Multiple views were obtained. Patient tolerated the procedure well. Color, pulsed and continuous with Dopplers were performed. Cell and contrast bubble injection was performed FINDINGS:. The aortic valve is tricuspid with normal opening excursion. There is trace to mild aortic regurgitation. Mitral valve structurally normal with trace to mild regurgitation. Tricuspid valve appeared to be normal with trace regurgitation. The interatrial septum appeared to be intact without any spontaneous shunt from the [id number]. Injection of the saline contrast bubbles did not reveal any shunt across the interatrial septum. Left atrial appendage is free of any clot. The chamber sizes appear to be normal. Left ankle function is normal. Aorta is free of any plaque IMPRESSION: #1. No evidence of PFO #2. No clot in left atrial appendage. #3. Left ventricle function is normal. #5. Trace to mild mitral, tricuspid and aortic regurgitation. #4. No plaque in the aorta PLAN:. Continuation of current current medical therapy
[2018-08-28] MEDS ORDERED: SODIUM CHLORIDE 0.9% 1,000 ML IV SCH (09:15)
[2018-08-28] MEDS: metFORMIN 500 MG TAB PO SCH (09:55)
[2018-08-28] MEDS: PANTOPRAZOLE 40 MG TABLET PO SCH (09:56)
[2018-08-28] MEDS: POTASSIUM CITRATE 10 MEQ TABLET.ER PO SCH (09:56)
[2018-08-28] MEDS: DESVENLAFAXINE SUCCINATE 50 MG TAB.ER.24H PO SCH (09:56)
[2018-08-28] MEDS: FAMOTIDINE 20 MG TAB PO SCH (09:56)
[2018-08-28] MEDS: FENOFIBRATE 160 MG TAB PO SCH (09:56)
[2018-08-28] MEDS: CLOPIDOGREL 75 MG TAB PO SCH (09:56)
[2018-08-28 11:17] LABS: Glucose,Whole Blood 208 mg/dL (75-99)
[2018-08-28] MEDS: MULTIVITAMINS, THERA 1 EACH TAB PO SCH (12:10)
[2018-08-28 15:31] VITALS: BP 135/81; PULSE 70; RESP 17; TEMP 98
[2018-08-28 16:26] LABS: Glucose,Whole Blood 125 mg/dL (75-99)
--- NOTE | 2018-08-28 16:39 | P.DS ---
Providers Date of admission: 08/26/18 21:04 Expected date of discharge: 08/28/18 Attending physician: Tramaine Jacobson Consults: 08/27/18 07:03 Consult Physician Routine Consulting Provider: Anjali Nova Consult Reason/Comments: elevated troponin Do you want consulting provider notified?: Yes, Notify in am 08/27/18 08:55 Consult Physician Routine Consulting Provider: Doris Galo Consult Reason/Comments: TIA Do you want consulting provider notified?: Yes Primary care physician: [facility] Course: Ms. Rossi is a 58-year-old female with a past medical history of diabetes mellitus hyperlipidemia hypertension and arthritis anxiety with depression and irritable bowel syndrome admitted to the hospital with a chief complaint of syncope. Patient felt some numbness on the left side of the face and left arm and had a fall. By the time the patient came to ER her symptoms resolved completely. The stroke team was activated and she was not deemed to be a candidate for any acute intervention. Patient had similar complaints in the past March where she had episodes of shaking of her left side of her shoulder and arm and she was known to have a stroke affecting the right middle cerebellar artery area. At that time patient had an EEG that was within normal limits. She is being worked up as outpatient for stroke by Dr. Mata's team. In the ER the patient had computed tomography scan of the brain and cervical spine that did not reveal any acute intracranial hemorrhage or mass. But we will evidence of encephalomalacia in the right MCA territory which was consistent with remote infarction. Patient was evaluated by neurology team and cardiology team. She had a KAMRON done this morning with bubble study which was negative for PFO. She also had an EEG done during this hospital admission that was within normal limits. Today the patient has been sitting comfortably in the bed appears to be in acute distress. Patient had proptosis on the right side of the forehead with a small hematoma and also has a black eye on the right side, which are probably secondary to the fall that she had when the episode of TIA/ seizures occurred. Patient denies having any symptoms of weakness, tingling or numbness in her feet or arms. No loss of consciousness or syncopal episodes since hospital admission. On review of systems patient denies having any fevers chills or rigors. No chest pain or palpitations. No cough or difficulty in breathing. No abdominal pain nausea vomiting or diarrhea. No dysuria or hematuria. Patient's vitals at the time of examination- Blood pressure is 135/81 saturating at 97% on room air heart rate of 72 and respiratory rate 17 temperature 90.8. Gen. examination - no acute distress HEENT examination-hematoma on the right frontal region, black eye on the right side Cardiovascular S1-S2 heard Respiratory-bilateral breath sounds positive. No wheezes or crackles Abdomen-soft nontender Extremities-no edema PANEL FITTER-Alert of recurrent 3. No focal neurological deficits. Patient's labs from this morning within normal limits. DISCHARGE DIAGNOSIS TIA / seizures History of stroke in the past Type 2 diabetes mellitus [id number] Obesity with BMI of 36.4 Hypertension Hyperlipidemia Anxiety with depression Activated bowel syndrome CK D stage III from nephrosclerosis Right frontal hematoma secondary to a fall Plan: Patient had a work up for stroke with CAT scan of the head that was within normal limits except for encephalomalacia of the right MCA secondary to a previous stroke in the past. EEG within normal limits and KAMRON with bubble study that was negative. She has been cleared by cardiology and neurology to be discharged home. Patient states that it is her birthday today and wants to go home. So she is being discharged and advised to follow-up with her neurologist Dr. Mata in 3-4 days. More than 30 minutes spent worse that discharge of the patient. Patient Condition at Discharge: Stable Plan - Discharge Summary Discharge Rx Participant: No New Discharge Prescriptions: Continue Multivitamins, Thera [Multivitamin (formulary)] 1 tab PO DAILY lamoTRIgine [LaMICtal] 50 mg PO HS Insulin Glargine [Lantus] 40 unit SQ HS metFORMIN HCL 1,000 mg PO BID Fenofibrate 160 mg PO DAILY Clopidogrel [Plavix] 75 mg PO DAILY Potassium Citrate [Potassium Citrate ER] 10 meq PO BID Simvastatin 80 mg PO HS Furosemide [Lasix] 10 mg PO DAILY PRN PRN Reason: Edema Pantoprazole Sodium [Protonix] 40 mg PO DAILY Desvenlafaxine [Pristiq ER] 100 mg PO DAILY traMADol HCl [Ultram] 50 mg PO Discharge Medication List Multivitamins, Thera [Multivitamin (formulary)] 1 tab PO DAILY 05/17/14 [History ] Insulin Glargine [Lantus] 40 unit SQ HS 04/13/17 [History] lamoTRIgine [LaMICtal] 50 mg PO HS 04/13/17 [History] metFORMIN HCL 1,000 mg PO BID 04/17/18 [History] Clopidogrel [Plavix] 75 mg PO DAILY 06/10/18 [History] Fenofibrate 160 mg PO DAILY 06/10/18 [History] Potassium Citrate [Potassium Citrate ER] 10 meq PO BID 06/10/18 [History] Simvastatin 80 mg PO HS 06/10/18 [History] Desvenlafaxine [Pristiq ER] 100 mg PO DAILY 08/26/18 [History] Furosemide [Lasix] 10 mg PO DAILY PRN 08/26/18 [History] Pantoprazole Sodium [Protonix] 40 mg PO DAILY 08/26/18 [History] traMADol HCl [Ultram] 50 mg PO 08/26/18 [History] Follow up Appointment(s)/Referral(s): James García DO [Primary Care Provider] - 1-2 days Patient Instructions/Handouts: Transient Ischemic Attack (DC) Discharge Disposition: HOME SELF-CARE
== END 2018-08-28 17:07 | disposition home or self-care (01) ==
LOC: EC 18:59 → 3SCARD 21:04 → INTOOBSV 21:04 → UNDODISIN 08-28 17:07
PROVIDERS: ADMIT Hospitalist; ATTEND Hospitalist
PROC: B246ZZ4 Ultrasonography of Right and Left Heart, Transesophageal (ICD-10-PCS; principal; 2018-08-28 08:30)
DX: G45.9 Transient cerebral ischemic attack, unspecified (principal); R56.9 Unspecified convulsions; R77.8 Other specified abnormalities of plasma proteins; I12.9 Hypertensive chronic kidney disease with stage 1 through stage 4 chronic kidney disease, or unspecified chronic kidney disease; N18.3 Chronic kidney disease, stage 3 (moderate); E11.22 Type 2 diabetes mellitus with diabetic chronic kidney disease; R29.701 NIHSS score 1; E78.5 Hyperlipidemia, unspecified; G93.89 Other specified disorders of brain; E11.40 Type 2 diabetes mellitus with diabetic neuropathy, unspecified; E66.9 Obesity, unspecified; Z68.36 Body mass index [BMI] 36.0-36.9, adult; K58.9 Irritable bowel syndrome, unspecified; M19.91 Primary osteoarthritis, unspecified site; S00.11XA Contusion of right eyelid and periocular area, initial encounter; S00.83XA Contusion of other part of head, initial encounter; W19.XXXA Unspecified fall, initial encounter; M19.90 Unspecified osteoarthritis, unspecified site; I08.3 Combined rheumatic disorders of mitral, aortic and tricuspid valves; F41.8 Other specified anxiety disorders; K57.90 Diverticulosis of intestine, part unspecified, without perforation or abscess without bleeding; Z79.891 Long term (current) use of opiate analgesic; Z79.02 Long term (current) use of antithrombotics/antiplatelets; Z79.4 Long term (current) use of insulin; Z79.899 Other long term (current) drug therapy; Z90.710 Acquired absence of both cervix and uterus; Z90.722 Acquired absence of ovaries, bilateral; Z90.49 Acquired absence of other specified parts of digestive tract; Z87.01 Personal history of pneumonia (recurrent); Z87.891 Personal history of nicotine dependence; Z87.442 Personal history of urinary calculi; Z85.42 Personal history of malignant neoplasm of other parts of uterus; Z86.14 Personal history of Methicillin resistant Staphylococcus aureus infection; Z86.73 Personal history of transient ischemic attack (TIA), and cerebral infarction without residual deficits; Z82.49 Family history of ischemic heart disease and other diseases of the circulatory system; Z83.3 Family history of diabetes mellitus; Z84.1 Family history of disorders of kidney and ureter; Z82.3 Family history of stroke; Z83.49 Family history of other endocrine, nutritional and metabolic diseases
CPT/HCPCS: 96365; 96375; 99291; 36415; 94760; 95819; 93005; 93312; 93320; 93325; 97162; 97165; 92523; 80061; 80053; 80048; 82550; 82553; 83735; 84484 ×2; 85025 ×2; 85610; 85730; 83036; 71046; 72125; 70450; G0378 ×3; J2250; J3010; J1170; J3475

== ENCOUNTER → 2018-10-26 | Outpatient (CLI) | payer OTHER | END | disposition home or self-care (01) | LOC: LABWHC1 16:03 | PROVIDERS: ATTEND Psychiatry & Neurology Pain Medicine | DX: Z51.81 Encounter for therapeutic drug level monitoring (principal) | CPT/HCPCS: 36415; 80175 ==

== ENCOUNTER → 2018-11-12 | Outpatient (CLI) | payer OTHER ==
--- NOTE | 2018-11-12 14:22 | XR ---
EXAMINATION TYPE: XR lumbosacral spine min 4V DATE OF EXAM: 11/12/2018 COMPARISON: None HISTORY: M54.5 TECHNIQUE: Five-view lumbar spine FINDINGS: There 5 lumbar-type vertebral bodies. The pedicles are intact. Degenerative disc changes an d vacuum disc phenomenon is present L3-4. There is loss of disc at L4-5 L5-S1. Spondylosis is present . Some endplate spurring is present L4-5 and L3-4 or disc space narrowing is present L1-2 IMPRESSION: 1. Degenerative disc changes discussed above. 2. Some mild endplate spurring is present within the L3-4 L4-5 levels.
== END | disposition home or self-care (01) ==
LOC: RADXRMAIN 12:56
PROVIDERS: ATTEND Family Medicine
DX: M51.36 Other intervertebral disc degeneration, lumbar region (principal)
CPT/HCPCS: 72110

== ENCOUNTER 2018-12-01 13:56 | Emergency (ER) | payer OTHER ==
[2018-12-01 14:05] VITALS: RESP 18
--- NOTE | 2018-12-01 14:15 | ED ---
General Adult HPI - General Chief complaint: Seizure Stated complaint: Seizure Time Seen by Provider: 12/01/18 13:58 Source: patient Mode of arrival: EMS Limitations: no limitations - History of Present Illness Initial comments: Dictation was produced using [employer] dictation software. please excuse any grammatical, word or spelling errors. Chief Complaint: 58-year-old female with past medical history of CVA, TIA, diabetes, hypertension, pneumonia, kidney disease presents with fall in bathroom. History of Present Illness: Patient is a 58-year-old female she fell in her bathroom today. According to EMS who received some history from family patient has had workup for seizures recently. EMS was told that patient has had what appeared to be seizures occurring at increased frequency. Patient states she was in the bathroom but to take a shower when she began feeling some tingling to her left lateral face. She states that these usually occur prior to when she has a seizure. Patient unable to confirm whether she is had an EEG in the past. Sounds like she has been advised by neurologist Dr. Mata or one of his associate at the office. EMS states that when the arrived on scene that there wasn't any family members who could give detailed history. Patient was picked up by EMS and the bathroom. Patient has no pain complaints at this time. She has no neuro deficits at this time. Patient was seen to be confused upon arrival of EMS. The ROS documented in this emergency department record has been reviewed and confirmed by me. Those systems with pertinent positive or negative responses have been documented in the HPI. All other systems are other negative and/or noncontributory. PHYSICAL EXAM: General Impression: Alert and oriented x3, not in acute distress HEENT: Normocephalic atraumatic, extra-ocular movements intact, pupils equal and reactive to light bilaterally, mucous membranes moist. Cardiovascular: Heart regular rate and rhythm, S1&S2 audible, no murmurs, rubs or gallops Chest: Lungs clear to auscultation bilaterally, no rhonchi, no wheeze, no rales Abdomen: Bowel sounds present, abdomen soft, non-tender, non-distended, no organomegaly Musculoskeletal: Pulses present and equal in all extremities, no peripheral edema Motor: no focal deficits noted Neurological: CN II-XII grossly intact, no focal motor or sensory deficits noted Skin: Intact with no visualized rashes Psych: Normal affect and mood ED course: 58-year-old female presents after fall in the bathroom. Patient's u ncle presentation is concerning for seizure versus syncope. Vital signs upon arrival shows blood pressure 185/90, Celexa signs within normal limits. Neuro exam is unremarkable. Patient moving all extremities symmetrically. No sensory deficits. Cranial nerves II-12 intact. He shouldn't does not complaining of any periorbital paresthesias at this time. No lateral tongue avulsions to suggest seizure. Laboratory evaluation obtained. CBC unremarkable. Metabolic panel shows an anion gap acidosis with a lactic acidosis of 8.2. Glucose 243. Magnesium is 1.5. Serum alcohol is negative. Given lactic acidemia and history of seizures on seizure medications patient's clinical presentation is likely secondary to seizure. Patient given a dose of her home medication that she takes proximal 1 :30 PM every day. More history was obtained from patient. She does report that she hasn't been eating and drinking per usual. There is a component of dehydration and her labs with hypomagnesemia. Patient given parenteral magnesium. Patient feels well to go home. Patient did not have any episodes of seizures urinary emergency department she does have established outpatient neurologist. Patient told to follow-up with her neurologist palpation. The plan. She told to be careful to avoid stressful situations, dehydration and poor by mouth intake. Patient also told to get a good amount of rest. EKG interpretation: Ventricular rate 80, normal sinus rhythm, NY interval 200, Q TC 40 Guero, QRS 74,. No NY prolongation, no QTC prolongation, no ST or T-wave changes noted. Overall, this EKG is unremarkable - Related Data Home Medications Medication Instructions Recorded Confirmed metFORMIN HCL 1,000 mg PO BID 04/17/18 12/01/18 Clopidogrel [Plavix] 75 mg PO DAILY 06/10/18 12/01/18 Fenofibrate 160 mg PO DAILY 06/10/18 12/01/18 Simvastatin 80 mg PO HS 06/10/18 12/01/18 Desvenlafaxine [Pristiq ER] 100 mg PO DAILY 08/26/18 12/01/18 Pantoprazole Sodium [Protonix] 40 mg PO DAILY 08/26/18 12/01/18 Aspirin EC [Ecotrin Low Dose] 81 mg PO DAILY 12/01/18 12/01/18 Cimetidine [Tagamet] 200 mg PO BID PRN 12/01/18 12/01/18 Ergocalciferol (Vitamin D2) 50,000 unit PO Q7D 12/01/18 12/01/18 [Vitamin D2] Eslicarbazepine Acetate [Aptiom] 800 mg PO DAILY 12/01/18 12/01/18 Magnesium Oxide 400 mg PO DAILY 12/01/18 12/01/18 Nitroglycerin Sl Tabs [Nitrostat] 0.4 mg SUBLINGUAL Q5M PRN 12/01/18 12/01/18 Allergies Allergy/AdvReac Type Severity Reaction Status Date / Time No Known Allergies Allergy Verified 12/01/18 14:05 Review of Systems ROS Statement: Those systems with pertinent positive or pertinent negative responses have been documented in the HPI. ROS Other: All systems not noted in ROS Statement are negative. Past Medical History Past Medical History: Cancer, Chest Pain / Angina, CVA/TIA, Diabetes Mellitus, Hyperlipidemia, Hypertension, Osteoarthritis (OA), Pneumonia, Renal Disease Additional Past Medical History / Comment(s): pt is rt side dominant.has had previous stroke that affected lt side. .uterine cancer stage II status post tot al hysterectomy with bilateral salpingo-oophorectomy. No chemotherapy or radiation therapy. IBS, diverticulitis, bronchitis, history of abscess to the left lower extremity with MRSA in 2011. 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 History of Any Multi-Drug Resistant Organisms: MRSA Date of last positivie culture/infection: 2011 MDRO Source:: left leg Past Surgical History: Cholecystectomy, Hysterectomy, Tonsillectomy Additional Past Surgical History / Comment(s): 10-22-17 cystoscopy, lt ureteroscopy w/ laser lithotripsy Past Anesthesia/Blood Transfusion Reactions: No Reported Reaction Past Psychological History: Anxiety, Depression Smoking Status: Former smoker Past Alcohol Use History: None Reported Past Drug Use History: Marijuana - Past Family History Father Family Medical History: Congestive Heart Failure (CHF), Diabetes Mellitus, Dialysis, Hyperlipidemia, Hypertension, Renal Disease Additional Family Medical History / Comment(s): AT AGE 64- Mother Family Medical History: CVA/TIA, Diabetes Mellitus, Hyperlipidemia, Hypertension, Myocardial Infarction ([place]) Additional Family Medical History / Comment(s): MOM AT AGE 74. General Exam Limitations: no limitations Course Vital Signs 12/01/18 12/01/18 12/01/18 13:57 14:42 15:39 Temperature 98 F Pulse Rate 98 76 67 Respiratory 18 18 18 Rate Blood Pressure 185/92 175/93 168/88 O2 Sat by Pulse 98 95 96 Oximetry Medical Decision Making - Lab Data Result diagrams: 12/01/18 14:11 12/01/18 14:11 Lab Results 12/01/18 12/01/18 12/01/18 Range/Units 14:11 14:11 14:11 WBC 6.7 (3.8-10.6) k/uL RBC 4.80 (3.80-5.40) m/uL Hgb 13.7 (11.4-16.0) gm/dL Hct 43.8 (34.0-46.0) % MCV 91.2 (80.0-100.0) fL MCH 28.6 (25.0-35.0) pg MCHC 31.3 (31.0-37.0) g/dL RDW 13.4 (11.5-15.5) % Plt Count 270 (150-450) k/uL Neutrophils % 62 % Lymphocytes % 28 % Monocytes % 5 % Eosinophils % 3 % Basophils % 1 % Neutrophils # 4.2 (1.3-7.7) k/uL Lymphocytes # 1.9 (1.0-4.8) k/uL Monocytes # 0.4 (0-1.0) k/uL Eosinophils # 0.2 (0-0.7) k/uL Basophils # 0.1 (0-0.2) k/uL Sodium 139 (137-145) mmol/L Potassium 4.5 (3.5-5.1) mmol/L Chloride 103 (98-107) mmol/L Carbon Dioxide 18 L (22-30) mmol/L Anion Gap 18 mmol/L BUN 21 H (7-17) mg/dL Creatinine 1.02 (0.52-1.04) mg/dL Est GFR (CKD-EPI)AfAm 71 (>60 ml/min/1.73 sqM) Est GFR (CKD-EPI)NonAf 62 (>60 ml/min/1.73 sqM) Glucose 243 H (74-99) mg/dL Plasma Lactic Acid David 8.2 H* (0.7-2.0) mmol/L Calcium 9.7 (8.4-10.2) mg/dL Magnesium 1.5 L (1.6-2.3) mg/dL Ammonia 33 H (<30) umol/L Creatine Kinase 60 (30-135) U/L Serum Alcohol <10 mg/dL Disposition Clinical Impression: Seizure Disposition: HOME SELF-CARE Condition: Good Instructions (If sedation given, give patient instructions): Recurrent Seizures in Adults (ED) Is patient prescribed a controlled substance at d/c from ED?: No Referrals: None,Stated [REFERRING] - 1-2 days Deshawn Mata MD [Family Provider] - 1-2 days Time of Disposition: 17:05
[2018-12-01 14:23] LABS: Basophils # (A) 0.1 k/uL (0-0.2); Basophils % (A) 1 %; Eosinophils # (A) 0.2 k/uL (0-0.7); Eosinophils % (A) 3 %; HCT 43.8 % (34.0-46.0); HGB 13.7 gm/dL (11.4-16.0); Lymphocytes # (A) 1.9 k/uL (1.0-4.8); Lymphocytes % (A) 28 %; MCH 28.6 pg (25.0-35.0); MCHC 31.3 g/dL (31.0-37.0); MCV 91.2 fL (80.0-100.0); Mean Platelet Volume 7.1; Monocytes # (A) 0.4 k/uL (0-1.0); Monocytes % (A) 5 %; Neutrophils # (A) 4.2 k/uL (1.3-7.7); Neutrophils % (A) 62 %; Platelet Count 270 k/uL (150-450); RDW 13.4 % (11.5-15.5); WBC 6.7 k/uL (3.8-10.6)
[2018-12-01 14:33] LABS: Alcohol <10 mg/dL; Anion Gap 18 mmol/L; Blood Urea Nitrogen 21 mg/dL (7-17); Calcium 9.7 mg/dL (8.4-10.2); Carbon Dioxide 18 mmol/L (22-30); Chloride 103 mmol/L (98-107); Creatine Kinase 60 U/L (30-135); Glucose 243 mg/dL (74-99); Magnesium 1.5 mg/dL (1.6-2.3); Potassium 4.5 mmol/L (3.5-5.1); Sodium 139 mmol/L (137-145)
[2018-12-01 14:36] LABS: Lactic Acid, Venous 8.2 mmol/L (0.7-2.0)
[2018-12-01] MEDS ORDERED: SODIUM CHLORIDE 0.9% 1,000 ML IV STA (14:53)
--- NOTE | 2018-12-01 14:54 | CT ---
EXAMINATION TYPE: CT brain cspine wo con DATE OF EXAM: 12/01/2018 COMPARISON: 08/26/2018 HISTORY: Seizures. Head and neck pain. CT DLP: 1560.3 mGycm. Automated Exposure Control for Dose Reduction was Utilized. TECHNIQUE: CT scan of the head and cervical spine are performed without contrast. FINDINGS: There is no acute intracranial hemorrhage, mass effect, or midline shift identified. Ther e is encephalomalacia are redemonstrated within the middle cerebral artery distribution involving the frontal and parietal lobes as well as insular cortex. There is slight ex vacuo dilatation of the rig ht lateral ventricle. The remainder of the gonsalez-white matter interface is maintained. The globes are intact and the visualized sinuses are clear. Cervical spine is visualized in its entirety from C1 through upper thoracic levels and demonstrates s atisfactory alignment without evidence of acute fracture or dislocation. Small posterior disc osteoph yte complexes are seen C6-C7 and C7-T1. Prevertebral soft tissue appears within normal limits. The C 1-C2 articulation is unremarkable. IMPRESSION: 1. There is no acute fracture or dislocation evident in the cervical spine. 2. No acute intracranial hemorrhage, mass effect, or midline shift is seen. 3. Redemonstration of encephalomalacia in the distribution of the right middle cerebral artery as see n on the prior exam. 3. Mild multilevel degenerative change of the cervical spine.
[2018-12-01] MEDS: MAGNESIUM SULFATE-D5W PMX 1 GM in DEXTROSE/WATER 1 100ML.BAG IVPB SCH ×2 (15:06→16:15)
--- NOTE | 2018-12-01 15:14 | XR ---
EXAMINATION TYPE: XR chest 1V portable DATE OF EXAM: 12/01/2018 COMPARISON: NONE HISTORY: Cough TECHNIQUE: Single frontal view of the chest is obtained. FINDINGS: Coarsened central interstitium. Heart size normal. No pleural effusion or pneumothorax. Ar thropathy of the shoulders. IMPRESSION: Interstitium is prominent correlate for bronchitis or interstitial pneumonitis. Venous c ongestion not entirely excluded correlate clinically.
--- NOTE | 2018-12-01 15:18 | XR ---
EXAMINATION TYPE: XR pelvis AP view DATE OF EXAM: 12/01/2018 COMPARISON: NONE HISTORY: Pain The osseous structures are intact and the joint spaces are preserved. No acute fracture is seen. Vi sualized bowel gas pattern is nonspecific. Calcification in the pelvis noted. Hypertrophic degenerat zayra change of the spine. Arthropathy of the hips. IMPRESSION: 1. No acute fracture. Calcification the pelvis is likely vascular rather than representing a bladder stone. Correlate clinically.
[2018-12-01] MEDS ORDERED: ACETAMINOPHEN TAB 500 MG TAB PO STA (15:42)
[2018-12-01 17:10] LABS: Appearance,Urine Clear (Clear); Bilirubin,Urine Negative (Negative); Blood,Urine Negative (Negative); Color,Urine Colorless; Glucose,Urine (UA) 3+ (Negative); Ketones,Urine Negative (Negative); Leukocyte Esterase,Urine Negative (Negative); Nitrite,Urine Negative (Negative); PH, Urine 7.5 (5.0-8.0); Protein,Urine Negative (Negative); Specific Gravity,Urine 1.003 (1.001-1.035); Urobilinogen,Urine <2.0 mg/dL (<2.0)
[2018-12-01 17:21] VITALS: BP 170/93; PULSE 65; TEMP 98.6
[2018-12-01 17:22] LABS: Amphetamine Screen,Urine Not Detected (NotDetected); Barbiturate Screen,Urine Not Detected (NotDetected); Benzodiazepines Screen,Urine Not Detected (NotDetected); Cocaine Screen,Urine Not Detected (NotDetected); Methadone Screen, Urine Not Detected (NotDetected); Opiate Screen,Urine Not Detected (NotDetected); Oxycodone Screen, Urine Not Detected (NotDetected); Phencyclidine Screen,Urine Not Detected (NotDetected); Tricyclic Antidepressant,Urine Not Detected (NotDetected); Urn Cannabinoid Scrn Detected (NotDetected)
== END 2018-12-01 17:18 | disposition home or self-care (01) ==
LOC: EC 13:56
DX: R56.9 Unspecified convulsions (principal); E87.2 Acidosis; E83.42 Hypomagnesemia; E86.0 Dehydration; R20.2 Paresthesia of skin; R41.0 Disorientation, unspecified; E78.5 Hyperlipidemia, unspecified; E11.42 Type 2 diabetes mellitus with diabetic polyneuropathy; M19.90 Unspecified osteoarthritis, unspecified site; F32.9 Major depressive disorder, single episode, unspecified; Z87.891 Personal history of nicotine dependence; Z79.02 Long term (current) use of antithrombotics/antiplatelets; Z79.82 Long term (current) use of aspirin; Z79.84 Long term (current) use of oral hypoglycemic drugs; Z79.899 Other long term (current) drug therapy; Z86.14 Personal history of Methicillin resistant Staphylococcus aureus infection; Z86.73 Personal history of transient ischemic attack (TIA), and cerebral infarction without residual deficits; Z85.42 Personal history of malignant neoplasm of other parts of uterus; Z90.710 Acquired absence of both cervix and uterus; Z90.79 Acquired absence of other genital organ(s); Z87.442 Personal history of urinary calculi; Z98.890 Other specified postprocedural states; W18.2XXA Fall in (into) shower or empty bathtub, initial encounter; Y92.002 Bathroom of unspecified non-institutional (private) residence as the place of occurrence of the external cause
CPT/HCPCS: 36415; 93005; 80048; 82140; 82550; 83605; 83735; 85025; 81003; 80306; 72170; 71045; 72125; 70450; 99285; 96365; 96366; G0480; J3475; 80320

== ENCOUNTER → 2018-12-24 | Outpatient (CLI) | payer OTHER ==
[2018-12-24 14:48] LABS: Basophils % (A) 1 %; Eosinophils # (A) 0.2 k/uL (0-0.7); Eosinophils % (A) 4 %; HCT 40.5 % (34.0-46.0); HGB 13.5 gm/dL (11.4-16.0); Lymphocytes # (A) 1.5 k/uL (1.0-4.8); Lymphocytes % (A) 32 %; MCHC 33.5 g/dL (31.0-37.0); MCV 86.7 fL (80.0-100.0); Mean Platelet Volume 8.9; Monocytes # (A) 0.2 k/uL (0-1.0); Monocytes % (A) 5 %; Neutrophils # (A) 2.6 k/uL (1.3-7.7); Neutrophils % (A) 57 %; Platelet Count 327 k/uL (150-450); RBC 4.67 m/uL (3.80-5.40); RDW 14.5 % (11.5-15.5); WBC 4.6 k/uL (3.8-10.6)
[2018-12-24 18:56] LABS: Parathyroid Hormone Intact 53.2 pg/mL (14.0-72.0)
[2018-12-24 19:18] LABS: Iron Saturation 15.61 (12.00-45.00)
[2018-12-24 19:24] LABS: Albumin 4.5 g/dL (3.80-4.90); Anion Gap 9.1 mmol/L (4.00-12.00); Calcium 9.4 mg/dL (8.7-10.3); Carbon Dioxide 25.9 mmol/L (21.6-31.8); Magnesium 1.5 mg/dL (1.5-2.4); Phosphorus 3.7 mg/dL (2.4-5.1); Potassium 4.2 mmol/L (3.5-5.5); Uric Acid 5.6 mg/dL (2.9-7.7)
[2018-12-24 19:26] LABS: Vitamin D 25 Hydroxy 25.5 ng/mL (30.0-100.0)
== END | disposition home or self-care (01) ==
LOC: LABWHC1 13:15
PROVIDERS: ATTEND Internal Medicine Nephrology
DX: E55.9 Vitamin D deficiency, unspecified (principal); N18.3 Chronic kidney disease, stage 3 (moderate); D63.1 Anemia in chronic kidney disease; E21.3 Hyperparathyroidism, unspecified; N20.0 Calculus of kidney
CPT/HCPCS: 36415; 80048; 82040; 82306; 82728; 83540; 83550; 83735; 83970; 84100; 84550; 85025

== ENCOUNTER 2019-01-23 10:18 | Emergency (ER) | payer OTHER ==
[2019-01-23 10:24] VITALS: BP 158/95; PULSE 88; RESP 16; TEMP 97.9
[2019-01-23] MEDS ORDERED: DIAZEPAM 5 MG TAB PO STA (10:36)
--- NOTE | 2019-01-23 10:37 | ED ---
Recheck HPI - General Chief Complaint: Recheck/Abnormal Lab/Rx Stated Complaint: Med refill Time Seen by Provider: 01/23/19 10:25 Source: patient, RN notes reviewed Mode of arrival: ambulatory Limitations: no limitations - History of Present Illness Initial Comments: 58-year-old female presents emergency Department with chief complaint of needing medication for seizures. Patient states she is in a Aptiom in which is a long- acting new seizure medication for her. Patient states that her pharmacist will not have the prescription until tomorrow. Patient was advised to come emergency department. Patient denies any seizure-like activity denies any other complaints. She states she takes his medication around 1 in the afternoon daily. Patient states her neurologist is Dr. Mata. - Related Data Home Medications Medication Instructions Recorded Confirmed metFORMIN HCL 1,000 mg PO BID 04/17/18 12/01/18 Clopidogrel [Plavix] 75 mg PO DAILY 06/10/18 12/01/18 Fenofibrate 160 mg PO DAILY 06/10/18 12/01/18 Simvastatin 80 mg PO HS 06/10/18 12/01/18 Desvenlafaxine [Pristiq ER] 100 mg PO DAILY 08/26/18 12/01/18 Pantoprazole Sodium [Protonix] 40 mg PO DAILY 08/26/18 12/01/18 Aspirin EC [Ecotrin Low Dose] 81 mg PO DAILY 12/01/18 12/01/18 Cimetidine [Tagamet] 200 mg PO BID PRN 12/01/18 12/01/18 Ergocalciferol (Vitamin D2) 50,000 unit PO Q7D 12/01/18 12/01/18 [Vitamin D2] Eslicarbazepine Acetate [Aptiom] 800 mg PO DAILY 12/01/18 12/01/18 Magnesium Oxide 400 mg PO DAILY 12/01/18 12/01/18 Nitroglycerin Sl Tabs [Nitrostat] 0.4 mg SUBLINGUAL Q5M PRN 12/01/18 12/01/18 Allergies Allergy/AdvReac Type Severity Reaction Status Date / Time No Known Allergies Allergy Verified 01/23/19 10:24 Review of Systems ROS Statement: Those systems with pertinent positive or pertinent negative responses have been documented in the HPI. ROS Other: All systems not noted in ROS Statement are negative. Past Medical History Past Medical History: Cancer, Chest Pain / Angina, CVA/TIA, Diabetes Mellitus, Hyperlipidemia, Hypertension, Osteoarthritis (OA), Pneumonia, Renal Disease Additional Past Medical History / Comment(s): pt is rt side dominant.has had previous stroke that affected lt side. .uterine cancer stage II status post total hysterectomy with bilateral salpingo-oophorectomy. No chemotherapy or radiation therapy. IBS, diverticulitis, bronchitis, history of abscess to the left lower extremity with MRSA in 2011. 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 History of Any Multi-Drug Resistant Organisms: MRSA Date of last positivie culture/infection: 2011 MDRO Source:: left leg Past Surgical History: Cholecystectomy, Hysterectomy, Tonsillectomy Additional Past Surgical History / Comment(s): 10-22-17 cystoscopy, lt ureteroscopy w/ laser lithotripsy Past Anesthesia/Blood Transfusion Reactions: No Reported Reaction Past Psychological History: Anxiety, Depression Smoking Status: Former smoker Past Alcohol Use History: None Reported Past Drug Use History: Marijuana - Past Family History Father Family Medical History: Congestive Heart Failure (CHF), Diabetes Mellitus, Dialysis, Hyperlipidemia, Hypertension, Renal Disease Additional Family Medical History / Comment(s): AT AGE 64- Mother Family Medical History: CVA/TIA, Diabetes Mellitus, Hyperlipidemia, Hypertension, Myocardial Infarction ([place]) Additional Family Medical History / Comment(s): MOM AT AGE 74. General Exam Limitations: no limitations General appearance: alert, in no apparent distress Neck exam: Present: normal inspection. Absent: tenderness, meningismus, lymphadenopathy Respiratory exam: Present: normal lung sounds bilaterally. Absent: respiratory distress, wheezes, rales, rhonchi, stridor Cardiovascular Exam: Present: regular rate, normal rhythm, normal heart sounds. Absent: systolic murmur, diastolic murmur, rubs, gallop, clicks Course Vital Signs 01/23/19 10:21 Temperature 97.9 F Pulse Rate 88 Respiratory 16 Rate Blood Pressure 158/95 O2 Sat by Pulse 98 Oximetry Medical Decision Making - Medical Decision Making 58-year-old female presented for his seizure medication. We do not carry his medication in the hospital as a specialist medication. Patient was given Valium to take for the day and she will fill her prescription tomorrow at her pharmacy. Disposition Clinical Impression: Encounter for medication refill, History of seizure Disposition: HOME SELF-CARE Condition: Stable Instructions (If sedation given, give patient instructions): Recurrent Seizures in Adults (ED) Additional Instructions: Please return to the Emergency Department if symptoms worsen or any other concerns. Is patient prescribed a controlled substance at d/c from ED?: No Referrals: James García DO [Primary Care Provider] - 1-2 days Time of Disposition: 10:37
== END 2019-01-23 10:48 | disposition home or self-care (01) ==
LOC: EC 10:18
DX: Z76.0 Encounter for issue of repeat prescription (principal); R56.9 Unspecified convulsions; E11.40 Type 2 diabetes mellitus with diabetic neuropathy, unspecified; E78.5 Hyperlipidemia, unspecified; I10 Essential (primary) hypertension; F32.9 Major depressive disorder, single episode, unspecified; Z79.02 Long term (current) use of antithrombotics/antiplatelets; Z79.82 Long term (current) use of aspirin; Z79.84 Long term (current) use of oral hypoglycemic drugs; Z79.899 Other long term (current) drug therapy; Z85.42 Personal history of malignant neoplasm of other parts of uterus; Z86.73 Personal history of transient ischemic attack (TIA), and cerebral infarction without residual deficits; Z87.891 Personal history of nicotine dependence; Z90.710 Acquired absence of both cervix and uterus
CPT/HCPCS: 99281

== ENCOUNTER → 2019-04-28 | Outpatient (CLI) | payer OTHER ==
[2019-04-28 13:09] LABS: Basophils % (A) 1 %; Eosinophils # (A) 0.2 k/uL (0-0.7); Eosinophils % (A) 3 %; HCT 39.5 % (34.0-46.0); HGB 13.3 gm/dL (11.4-16.0); Lymphocytes # (A) 2.2 k/uL (1.0-4.8); Lymphocytes % (A) 36 %; MCH 30.2 pg (25.0-35.0); MCHC 33.7 g/dL (31.0-37.0); MCV 89.7 fL (80.0-100.0); Mean Platelet Volume 7.3; Monocytes # (A) 0.3 k/uL (0-1.0); Monocytes % (A) 6 %; Neutrophils # (A) 3.2 k/uL (1.3-7.7); Neutrophils % (A) 53 %; Platelet Count 323 k/uL (150-450); RDW 13.3 % (11.5-15.5)
[2019-04-28 18:45] LABS: Iron Saturation 20.27 (12.00-45.00)
[2019-04-28 18:47] LABS: African American GFR (CKD) 64.5 (60.0-200.0); Anion Gap 3.9 mmol/L (4.00-12.00); BUN/Creat Ratio 20.91 Ratio (12.00-20.00); Calcium 9.6 mg/dL (8.7-10.3); Carbon Dioxide 31.1 mmol/L (21.6-31.8); LDL Cholesterol,Calculated 102.2 mg/dL (0.0-131.0); Magnesium 1.6 mg/dL (1.5-2.4); Phosphorus 3.7 mg/dL (2.4-5.1); Potassium 4.2 mmol/L (3.5-5.5); Uric Acid 4.9 mg/dL (2.9-7.7); VLDL Calculation 29.8 mg/dL (5.00-40.00)
[2019-04-28 18:54] LABS: Vitamin D 25 Hydroxy 27.4 ng/mL (30.0-100.0)
[2019-04-28 20:21] LABS: Cardiolipin Ab IgG Interp NEGATIVE (NEGATIVE); Cardiolipin Ab IgM Interp NEGATIVE (NEGATIVE); Cardiolipin IgA Antibody <0.5 U/mL; Cardiolipin IgM Antibody 0.2 U/mL
[2019-04-29 11:13] LABS: Protein C Antigen 132 % (72-160)
[2019-04-29 11:14] LABS: Anti-Thrombin III Antigen 116 % (80 - 120); Protein S Antigen 106 % (50 - 140)
[2019-04-29 11:54] LABS: Protein C (Activity) 136 % (71-138)
[2019-04-29 11:58] LABS: Anti-Thrombin III Activity 107 % (79-109)
[2019-04-29 12:08] LABS: APTT 35 Sec(s) (<43); Dilute Russell Viper Venom 39 Sec(s) (<44)
== END | disposition home or self-care (01) ==
LOC: LABWHC1 12:10
PROVIDERS: ATTEND Psychiatry & Neurology Pain Medicine
DX: I63.9 Cerebral infarction, unspecified (principal); G45.9 Transient cerebral ischemic attack, unspecified; M10.9 Gout, unspecified; N39.0 Urinary tract infection, site not specified; D63.1 Anemia in chronic kidney disease; N18.3 Chronic kidney disease, stage 3 (moderate); E55.9 Vitamin D deficiency, unspecified
CPT/HCPCS: 36415; 80048; 80061; 81240; 81241; 81291; 82306; 82728; 83090; 83540; 83550; 83735; 83970; 84100; 84550; 85025; 85300; 85301; 85302; 85303; 85305; 85306; 85384; 85613; 85730; 86147

== ENCOUNTER → 2019-07-11 | Outpatient (CLI) | payer OTHER ==
[2019-07-11 16:14] LABS: Basophils % (A) 0 %; Eosinophils # (A) 0.1 k/uL (0-0.7); Eosinophils % (A) 2 %; HCT 33.8 % (34.0-46.0); HGB 10.6 gm/dL (11.4-16.0); Hypochromasia Slight; Lymphocytes # (A) 1.4 k/uL (1.0-4.8); Lymphocytes % (A) 27 %; MCH 28.7 pg (25.0-35.0); MCHC 31.5 g/dL (31.0-37.0); MCV 91.1 fL (80.0-100.0); Mean Platelet Volume 6.5; Monocytes # (A) 0.3 k/uL (0-1.0); Monocytes % (A) 5 %; Neutrophils # (A) 3.3 k/uL (1.3-7.7); Neutrophils % (A) 63 %; Platelet Count 395 k/uL (150-450); RDW 14.2 % (11.5-15.5); WBC 5.2 k/uL (3.8-10.6)
[2019-07-11 16:16] LABS: Appearance,Urine Cloudy (Clear); Bacteria,Urine Rare /hpf; Bilirubin,Urine Negative (Negative); Blood,Urine Trace (Negative); Color,Urine Yellow; Glucose,Urine (UA) Negative (Negative); Ketones,Urine Negative (Negative); Leukocyte Esterase,Urine Large (Negative); Mucus,Urine Rare /hpf; Nitrite,Urine Negative (Negative); Protein,Urine Trace (Negative); RBC,Urine 2 /hpf (0-5); Specific Gravity,Urine 1.015 (1.001-1.035); Squamous Epithelial Cell,Urine 2 /hpf (0-4); Urobilinogen,Urine <2.0 mg/dL (<2.0); WBC,Urine 41 /hpf (0-5)
[2019-07-12 00:41] LABS: Vitamin D 25 Hydroxy 30.5 ng/mL (30.0-100.0)
[2019-07-12 00:43] LABS: Ferritin 143.9 ng/mL (10.0-291.0)
[2019-07-12 01:06] LABS: African American GFR (CKD) 52.7 (60.0-200.0); Albumin 3.9 g/dL (3.80-4.90); Anion Gap 9.5 mmol/L (4.00-12.00); BUN/Creat Ratio 15.38 Ratio (12.00-20.00); Calcium 9.3 mg/dL (8.7-10.3); Carbon Dioxide 25.5 mmol/L (21.6-31.8); Iron Saturation 11.67 (12.00-45.00); Magnesium 1.5 mg/dL (1.5-2.4); Non-African American GFR(CKD) 45.5 (60.0-200.0); Phosphorus 4.2 mg/dL (2.4-5.1); Potassium 4.4 mmol/L (3.5-5.5); Uric Acid 5.7 mg/dL (2.9-7.7)
== END | disposition home or self-care (01) ==
LOC: LABWHC1 15:49
PROVIDERS: ATTEND Internal Medicine Nephrology
DX: E55.0 Rickets, active (principal); N20.0 Calculus of kidney; N18.3 Chronic kidney disease, stage 3 (moderate); N25.81 Secondary hyperparathyroidism of renal origin; M10.9 Gout, unspecified; N39.0 Urinary tract infection, site not specified; D64.9 Anemia, unspecified
CPT/HCPCS: 36415; 80048; 81001; 82040; 82306; 82728; 83540; 83550; 83735; 83970; 84100; 84550; 85025

== ENCOUNTER → 2019-10-20 | Outpatient (CLI) | payer OTHER ==
[2019-10-20 16:22] LABS: Appearance,Urine Clear (Clear); Bilirubin,Urine Negative (Negative); Blood,Urine Negative (Negative); Color,Urine Yellow; Glucose,Urine (UA) 4+ (Negative); Ketones,Urine Negative (Negative); Leukocyte Esterase,Urine Trace (Negative); Mucus,Urine Rare /hpf; Nitrite,Urine Negative (Negative); Protein,Urine Negative (Negative); RBC,Urine 1 /hpf (0-5); Specific Gravity,Urine 1.018 (1.001-1.035); Squamous Epithelial Cell,Urine 1 /hpf (0-4); Urobilinogen,Urine <2.0 mg/dL (<2.0); WBC,Urine 5 /hpf (0-5)
[2019-10-20 16:28] LABS: Basophils # (A) 0.1 k/uL (0-0.2); Basophils % (A) 1 %; Eosinophils # (A) 0.2 k/uL (0-0.7); Eosinophils % (A) 3 %; HCT 42.3 % (34.0-46.0); HGB 14.2 gm/dL (11.4-16.0); Lymphocytes # (A) 2.5 k/uL (1.0-4.8); Lymphocytes % (A) 37 %; MCH 29.9 pg (25.0-35.0); MCHC 33.6 g/dL (31.0-37.0); Mean Platelet Volume 7.3; Monocytes # (A) 0.4 k/uL (0-1.0); Monocytes % (A) 6 %; Neutrophils # (A) 3.5 k/uL (1.3-7.7); Neutrophils % (A) 51 %; Platelet Count 336 k/uL (150-450); RBC 4.75 m/uL (3.80-5.40); RDW 14.2 % (11.5-15.5); WBC 6.8 k/uL (3.8-10.6)
[2019-10-21 00:18] LABS: Creatinine,Urine Random 95.4 mg/dL; Total Protein,Urine Random 13.6 mg/dL (0.0-13.5)
[2019-10-21 01:27] LABS: % Iron Saturation 22.98 (12.00-45.00); African American GFR (CKD) 52.4 (60.0-200.0); Albumin 4.8 g/dL (3.80-4.90); BUN/Creat Ratio 22.31 Ratio (12.00-20.00); Calcium 10.1 mg/dL (8.7-10.3); Non-African American GFR(CKD) 45.2 (60.0-200.0); Phosphorus 4.7 mg/dL (2.4-5.1); Potassium 4.7 mmol/L (3.5-5.5); Uric Acid 5.8 mg/dL (2.9-7.7)
[2019-10-21 01:36] LABS: Ferritin 68.2 ng/mL (10.0-291.0)
== END | disposition home or self-care (01) ==
LOC: LABWHC1 15:38
PROVIDERS: ATTEND Internal Medicine Nephrology
DX: N18.3 Chronic kidney disease, stage 3 (moderate) (principal); D63.1 Anemia in chronic kidney disease; N39.0 Urinary tract infection, site not specified; E21.3 Hyperparathyroidism, unspecified; M10.9 Gout, unspecified; E61.1 Iron deficiency; E55.9 Vitamin D deficiency, unspecified
CPT/HCPCS: 36415; 80048; 81001; 82040; 82306; 82570; 82728; 83540; 83550; 83735; 83970; 84100; 84156; 84550; 85025

== ENCOUNTER → 2020-10-01 | Outpatient (CLI) | payer OTHER ==
[2020-10-01 14:14] LABS: Basophils % (A) 1 %; Eosinophils % (A) 4 %; HCT 42.8 % (34.0-46.0); HGB 14.8 gm/dL (11.4-16.0); Lymphocytes # (A) 2.2 k/uL (1.0-4.8); Lymphocytes % (A) 31 %; MCH 31.1 pg (25.0-35.0); MCHC 34.6 g/dL (31.0-37.0); MCV 89.9 fL (80.0-100.0); Mean Platelet Volume 7.4; Monocytes # (A) 0.4 k/uL (0-1.0); Monocytes % (A) 6 %; Neutrophils # (A) 4.1 k/uL (1.3-7.7); Neutrophils % (A) 57 %; Platelet Count 314 k/uL (150-450); RBC 4.76 m/uL (3.80-5.40); RDW 12.9 % (11.5-15.5); WBC 7.1 k/uL (3.8-10.6)
[2020-10-01 14:15] LABS: Basophils # (A) 0.1 k/uL (0-0.2); Eosinophils # (A) 0.3 k/uL (0-0.7)
[2020-10-01 14:36] LABS: Appearance,Urine Cloudy (Clear); Bilirubin,Urine Negative (Negative); Blood,Urine Negative (Negative); Color,Urine Yellow; Glucose,Urine (UA) 4+ (Negative); Ketones,Urine Negative (Negative); Leukocyte Esterase,Urine Moderate (Negative); Mucus,Urine Occasional /hpf; Nitrite,Urine Negative (Negative); Protein,Urine 1+ (Negative); RBC,Urine 2 /hpf (0-5); Squamous Epithelial Cell,Urine 4 /hpf (0-4); WBC,Urine 4 /hpf (0-5)
[2020-10-01 14:50] LABS: Creatinine,Urine Random 305.8 mg/dL; Protein/Creatinine Ratio,Urine 0.043
[2020-10-01 20:54] LABS: Chol/HDL Ratio 5.53; LDL Cholesterol,Calculated 127.6 mg/dL (0.0-131.0); VLDL Calculation 44.4 mg/dL (5.00-40.00)
[2020-10-01 21:03] LABS: % Iron Saturation 18.63 (12.00-45.00); African American GFR (CKD) 57.3 (60.0-200.0); Albumin 4.3 g/dL (3.80-4.90); Anion Gap 6.5 mmol/L (4.00-12.00); BUN/Creat Ratio 13.33 Ratio (12.00-20.00); Calcium 9.4 mg/dL (8.7-10.3); Carbon Dioxide 29.5 mmol/L (21.6-31.8); Magnesium 1.5 mg/dL (1.5-2.4); Non-African American GFR(CKD) 49.4 (60.0-200.0); Phosphorus 4.1 mg/dL (2.4-5.1); Potassium 4.5 mmol/L (3.5-5.5)
[2020-10-01 21:11] LABS: Ferritin 38.4 ng/mL (10.0-291.0)
== END | disposition home or self-care (01) ==
LOC: LABWHC1 13:06
PROVIDERS: ATTEND Psychiatry & Neurology Pain Medicine
DX: E55.9 Vitamin D deficiency, unspecified (principal); N18.30 Chronic kidney disease, stage 3 unspecified; E21.3 Hyperparathyroidism, unspecified; M10.9 Gout, unspecified; N39.0 Urinary tract infection, site not specified; D63.1 Anemia in chronic kidney disease; I63.9 Cerebral infarction, unspecified; Z51.81 Encounter for therapeutic drug level monitoring
CPT/HCPCS: 36415; 80048; 80061; 81001; 82040; 82306; 82570; 82728; 83540; 83550; 83735; 83970; 84100; 84156; 84550; 85025

== ENCOUNTER → 2020-10-19 | Outpatient (CLI) | payer OTHER ==
--- NOTE | 2020-10-19 09:21 | CT ---
EXAMINATION TYPE: CT soft tissue neck w con DATE OF EXAM: 10/19/2020 HISTORY: Parotid mass per order. Dizziness. COMPARISON: CT brain and cervical spine December 01, 2018 CT DLP: 533.4 mGycm. Automated Exposure Control for Dose Reduction was Utilized. TECHNIQUE: CT scan of the neck is performed with IV Contrast, patient injected with 100 ml mL of Iso keesha 300, axial images are obtained, coronal and sagittal reformatted images are reviewed. FINDINGS: Airway: No gross abnormality seen. Parotid/submandibular glands: There is oval subtle hyperdense or enhancing 1.3 x 0.8 cm left parotid lesion central inferior left parotid gland slightly more superficial in appearance axial image 58. In retrospect was partially imaged on CT brain study 2019. Craniocaudal extent of lesion 1.0 cm. Right parotid gland unremarkable. Submandibular glands symmetric and within normal limits. Carotid/Vascular Structures: Moderate mixed plaque in the carotid bulbs is present. Osseous Structures: Posterior spur disc complex effaces the anterior thecal sac C6-C7 and C7-T1 level s. Other: No suspicious greater than 1 cm neck adenopathy. Nasal septum deviated to right of midline. IMPRESSION: There is 1.3 cm solid left parotid mass could reflect neoplasm. Advise ENT referral for f urther evaluation if has not been performed. Consider ultrasound follow-up and/or ultrasound-guided F NA.
== END | disposition home or self-care (01) ==
LOC: RADCTMAIN 06:39
PROVIDERS: ATTEND Internal Medicine Hematology & Oncology
DX: K11.8 Other diseases of salivary glands (principal); E11.9 Type 2 diabetes mellitus without complications; K11.9 Disease of salivary gland, unspecified
CPT/HCPCS: 82565; 84520; 70491; 36415; Q9967

== ENCOUNTER → 2021-04-03 | Outpatient (CLI) | payer OTHER ==
[2021-04-03 13:02] LABS: Basophils # (A) 0.1 k/uL (0-0.2); Basophils % (A) 1 %; Eosinophils # (A) 0.1 k/uL (0-0.7); Eosinophils % (A) 2 %; HCT 44.8 % (34.0-46.0); HGB 15.9 gm/dL (11.4-16.0); Lymphocytes # (A) 1.4 k/uL (1.0-4.8); Lymphocytes % (A) 21 %; MCH 31.9 pg (25.0-35.0); MCHC 35.4 g/dL (31.0-37.0); MCV 90.1 fL (80.0-100.0); Mean Platelet Volume 8.1; Monocytes # (A) 0.5 k/uL (0-1.0); Monocytes % (A) 7 %; Neutrophils # (A) 4.5 k/uL (1.3-7.7); Neutrophils % (A) 68 %; Platelet Count 309 k/uL (150-450); RBC 4.97 m/uL (3.80-5.40); RDW 12.8 % (11.5-15.5); WBC 6.6 k/uL (3.8-10.6)
[2021-04-03 13:12] LABS: Albumin 4.4 g/dL (3.5-5.0); Magnesium 1.4 mg/dL (1.6-2.3); Phosphorus 4.5 mg/dL (2.5-4.5); Potassium 4.7 mmol/L (3.5-5.1); Uric Acid 5.2 mg/dL (3.7-7.4)
--- NOTE | 2021-04-03 14:20 | CT ---
EXAMINATION TYPE: CT soft tissue neck w con DATE OF EXAM: 04/03/2021 COMPARISON: 10/19/20 HISTORY: Parotid mass, left CT DLP: 743 mGycm CONTRAST: CT scan of the neck is performed with IV Contrast, patient injected with 100 ml mL of Isovue 300. Contrast enhanced CT of the neck was performed from the skull base through the lung apices. AIRWAY: The supraglottic, glottic, and subglottic portions of the airway appear patent and free of mass. SALIVARY GLANDS: 1 cm vague nodule within the left parotid gland versus a prior measurement of 21.8 cm. No new nodules are seen. The submandibular glands are free of mass or inflammatory process. THYROID GLAND: No nodules or masses seen. LYMPH NODES: No adenopathy seen greater than 1cm. LUNG APICES: No nodule or mass is seen. OTHER: Vascular structures are patent. Persistent degenerative change of the cervical spine. No abs cess seen. IMPRESSION: 1. Essentially stable vague nodule left parotid gland lower pole is nonspecific.
[2021-04-03 14:27] LABS: Appearance,Urine Cloudy (Clear); Bilirubin,Urine Negative (Negative); Blood,Urine Negative (Negative); Color,Urine Yellow; Glucose,Urine (UA) 4+ (Negative); Ketones,Urine Negative (Negative); Leukocyte Esterase,Urine Negative (Negative); Mucus,Urine Rare /hpf; Nitrite,Urine Negative (Negative); Protein,Urine Negative (Negative); RBC,Urine 1 /hpf (0-5); Specific Gravity,Urine 1.026 (1.001-1.035); Squamous Epithelial Cell,Urine 3 /hpf (0-4); Urobilinogen,Urine <2.0 mg/dL (<2.0); WBC,Urine 1 /hpf (0-5)
[2021-04-03 14:37] LABS: Creatinine,Urine Random 106.6 mg/dL; Protein/Creatinine Ratio,Urine 0.113
[2021-04-04 06:06] LABS: % Iron Saturation 24.12 (12.00-45.00)
[2021-04-04 06:16] LABS: Ferritin 39.5 ng/mL (10.0-291.0)
== END | disposition home or self-care (01) ==
LOC: RADCTMAIN 11:48
PROVIDERS: ATTEND Internal Medicine Hematology & Oncology
DX: K11.8 Other diseases of salivary glands (principal)
CPT/HCPCS: 82570; 80048; 84156; 82728; 82040; 83540; 83550; 83735; 84100; 84550; 85025; 81001; 82306; 83970; 70491; 36415; Q9967

== ENCOUNTER → 2021-05-07 | Outpatient (CLI) | payer OTHER ==
[2021-05-07 21:16] LABS: African American GFR (CKD) 35.1 (60.0-200.0); Anion Gap 9.7 mmol/L (4.00-12.00); Calcium 9.4 mg/dL (8.7-10.3); Carbon Dioxide 24.3 mmol/L (21.6-31.8); Non-African American GFR(CKD) 30.3 (60.0-200.0); Potassium 4.8 mmol/L (3.5-5.5)
== END | disposition home or self-care (01) ==
LOC: LABWHC1 12:43
PROVIDERS: ATTEND Nurse Practitioner Acute Care
DX: N18.30 Chronic kidney disease, stage 3 unspecified (principal)
CPT/HCPCS: 36415; 80048

== ENCOUNTER → 2021-06-18 | Outpatient (CLI) | payer OTHER | END | disposition home or self-care (01) | LOC: LABWHC1 09:39 | PROVIDERS: ATTEND Nurse Practitioner Acute Care | DX: N18.30 Chronic kidney disease, stage 3 unspecified (principal) | CPT/HCPCS: 36415; 80048 ==

== ENCOUNTER → 2021-10-04 | Outpatient (CLI) | payer OTHER ==
[2021-10-04 22:46] LABS: African American GFR (CKD) 56.3 (60.0-200.0); Anion Gap 12.9 mmol/L (10.00-18.00); BUN/Creat Ratio 13.97 Ratio (12.00-20.00); Blood Urea Nitrogen 16.9 mg/dL (9.0-27.0); Carbon Dioxide 25.9 mmol/L (20.0-27.5); Non-African American GFR(CKD) 48.6 (60.0-200.0); Potassium 4.5 mmol/L (3.5-5.5)
== END | disposition home or self-care (01) ==
LOC: LABWHC1 12:30
PROVIDERS: ATTEND Nurse Practitioner Family
DX: N18.30 Chronic kidney disease, stage 3 unspecified (principal)
CPT/HCPCS: 36415; 80048